=== PATIENT | male | born 1955 | race Caucasian/White ===

== ENCOUNTER 2016-06-05 18:05 | Emergency (ER) | payer OTHER ==
[~2016-06-05] VITALS: Ht 198.1 cm; Wt 144.8 kg
[~2016-06-05 18:05] MED LIST: ALBUAER19 INH; CETI10TA84 PO; DILT-115 PO; FLEC50TA20 PO; FLNIN NAE; GLUCTAB18 PO; LOSA100T2 PO; MISCCAP80 PO; TURM1CAP4 PO; WARF-246 PO
[2016-06-05 18:43] VITALS: TEMP 36.8; Ht 198.1 cm; Wt 144.8 kg
[2016-06-05] MEDS ORDERED: SODIUM CHLORIDE 0.9% 1000ML 1,000 ML IV STA (20:50)
[2016-06-05 21:07] VITALS: O2SAT 98
--- NOTE | 2016-06-05 21:17 | DIAGNOSTIC IMAGING REPORT ---
CHEST ONE VIEW PORTABLE CLINICAL HISTORY: Weakness. Atrial fibrillation. COMPARISON STUDY: Chest radiograph November 06, 2015. FINDINGS: Mild to moderate cardiomegaly is unchanged. There is no evidence for pulmonary edema. No consolidation is identified. There is no pneumothorax or pleural effusion. IMPRESSION: No acute cardiopulmonary findings. Electronically signed by: Marito Ibanez M.D. 06/05/2016 9:16 PM Dictated Date/Time: 06/05/2016 9:12 PM
[2016-06-05 21:20] LABS: BASO % 0.3 %; BASO ABS # 0.02 K/uL (0-0.2); COMPLETE YES; EOS % 1.7 %; HEMATOCRIT 48.7 % (42-52); IG% 0.1 %; LYMPH % 35.4 %; LYMPH ABS # 2.72 K/uL (1.2-3.4); MEAN CELL VOLUME 93.1 fL (80-100); MEAN CORPUSCULAR HEMOGLOBIN 33.7 pg (25-34); MEAN CORPUSCULAR HGB CONC 36.1 g/dl (32-36); MEAN PLATELET VOLUME 10.1 fL (7.4-10.4); MONO % 11.3 %; NEUT % 51.2 %; PLATELET COUNT 176 K/uL (130-400); RED BLOOD COUNT 5.23 M/uL (4.7-6.1); WHITE BLOOD COUNT 7.69 K/uL (4.8-10.8)
[2016-06-05 21:25] LABS: URINE APPEARANCE CLEAR (CLEAR); URINE BILIRUBIN NEG (NEG); URINE COLOR YELLOW; URINE NITRITE NEG (NEG); URINE PH 7.5 (4.5-7.5); URINE SPECIFIC GRAVITY 1.018 (1.000-1.030); UROBILINOGEN NEG (NEG)
[2016-06-05 21:28] LABS: MANUAL MICROSCOPIC REQUIRED? NO; REVIEW REQ? NO
[2016-06-05 21:29] LABS: INR 2.5 (0.9-1.1); PARTIAL THROMBOPLASTIN RATIO 1.4
[2016-06-05] MEDS ORDERED: VNTHFA/IN INH (21:35)
[2016-06-05] MEDS ORDERED: FLNIN NAE (21:35)
[2016-06-05] MEDS ORDERED: COLL1CAP PO (21:35)
[2016-06-05] MEDS ORDERED: MAGN1TAB41 PO (21:35)
[2016-06-05] MEDS ORDERED: XPNINS INH (21:35)
[2016-06-05] MEDS ORDERED: DILT240C74 PO (21:35)
[2016-06-05 21:45] LABS: ALT/SGPT 37 U/L (12-78); BLOOD UREA NITROGEN 15 mg/dl (7-18); BUN/CREATININE RATIO 16.3 (10-20); CALCIUM 9.1 mg/dl (8.5-10.1); CARBON DIOXIDE 27 mmol/L (21-32); CHLORIDE 101 mmol/L (98-107); CREATININE 0.93 mg/dl (0.60-1.40); GLUCOSE 100 mg/dl (70-99); MAGNESIUM 2.3 mg/dl (1.8-2.4); SODIUM 137 mmol/L (136-145)
[2016-06-05 21:55] LABS: ALKALINE PHOSPHATASE 87 U/L (45-117); AST/SGOT 21 U/L (15-37); CKMB/CK RATIO 1.2 (0-3.0)
[2016-06-05] MEDS ORDERED: FLECAINIDE ACETATE 100 MG TAB PO STA ×2 (22:27→23:41)
[2016-06-05] MEDS ORDERED: DILTIAZEM HCL 240 MG CAPCR PO STA (22:27)
[2016-06-05] MEDS ORDERED: WARFARIN SOD 5 MG TAB PO ONE (22:30)
--- NOTE | 2016-06-06 00:04 | EMERGENCY ROOM VISIT NOTE ---
History Report prepared by Joseph: Ekta Long Under the Supervision of: Dr. Lazaro Mccloud M.D. First contact with patient: 20:49 Chief Complaint: CARDIAC ASSESSMENT Stated Complaint: A FIB Nursing Triage Summary: Pt c/o "dizziness and my watch that tells my my heart rate was acting wierd." Hx Afib, 2 ablations, hx shocks, last visit November. History of Present Illness The patient is a 60 year old male who presents to the Emergency Room with complaints of intermittent lightheadedness that the patient noticed 5-6 hours ago, around [id number]. The patient states that whenever he gets lightheaded it is often secondary to atrial fibrillation. Pt denies LOC, headache, fevers, chills, diaphoresis, visual changes, neck pain, chest pain, breathing difficulties, nausea, vomiting, abdominal pain, back pain, melena, hematochezia , urinary symptoms, numbness, weakness, lymphadenopathy, rash, or other complaints. He has a long history of atrial fibrillation with multiple cardioversions and two ablations. The patient states that his most recent cardioversion was done last November by Dr. Avitia - Cardiology. The patient's states that the patient has been cardioverted in the ED and in the lab. The patient is on flecainide, losartan, diltiazem, and warfarin. He states that he started the flecainide about 1.5 years ago. The patient drinks wine regularly , but he states that alcohol does not impact his atrial fibrillation because he went about 1.5 years without drinking any alcohol and it did not improve the occurrence of his atrial fibrillation. Source of History: patient, spouse/significant other () Onset: 5-6 hours ago, around [id number] Position: head Quality: other (lightheadedness) Timing: intermittent Note: atrial fibrillation Review of Systems See HPI for pertinent positives and negatives. A total of ten systems were reviewed and were otherwise negative. Past Medical & Surgical Medical Problems: (1) Allergic rhinitis (2) Asthma, Unspecified (3) Atrial fibrillation (4) Atrial fibrillation with rapid ventricular response (5) Benign hypertension (6) Benign neoplasm of colon (7) Chronic allergic conjunctivitis (8) Congestive Heart Failure Nos (9) History of sustained ventricular tachycardia (10) Hyperlipidemia Nec/Nos (11) Hypertension Nos (12) Intermittent asthma (13) Mitral Valve Disorder (14) Osteoarthritis Family History Heart disease Social History Smoking Status: Never Smoker Alcohol Use: occasionally Drug Use: none Marital Status: Housing Status: lives with family Occupation Status: employed Current/Historical Medications Scheduled Cetirizine (Zyrtec), 10 MG PO HS Zeiejiui-Zkeczvngmpo-Zkiiolmhu (Hyaluronic Acid), 2 CAP PO DAILY Diltiazem Hcl Extended Release (Diltiazem Hcl Er), 240 MG PO DAILY Flecainide (Tambocor), 75 MG PO Q12 Fluticasone Propionate (Fluticasone Propionate), 2 SPRAYS JAMAL DAILY Losartan Potassium & Hydrochlo (Hyzaar), 1 TAB PO DAILY Magnesium Oxide (Magnesium), 400 MG PO DAILY Probiotic Product (Probiotic), 1 CAP PO DAILY Turmeric (Curcuma Longa) (Turmeric), 1 CAP PO DAILY Warfarin Sodium (Warfarin Sodium), 2 TAB PO 2XWK Warfarin Sodium (Warfarin Sodium), 1 TAB PO 6XWK Scheduled PRN Albuterol Hfa (Ventolin Hfa), 2 PUFFS INH QID PRN for SOB/Wheezing Levalbuterol (Levalbuterol HCl), 0.63 MG INH QID PRN for Shortness of Breath Allergies Coded Allergies: PADMINI Inhibitors (Verified Allergy, Unknown, "CAN'T REMEMBER", 06/05/16) Allopurinol (Verified Allergy, Unknown, "CAN'T REMEMBER", 06/05/16) Physical Exam Vital Signs Date Time Temp Pulse Resp B/P Pulse Ox O2 Delivery O2 Flow Rate FiO2 06/05/16 23:55 69 06/05/16 22:49 94 16 150/95 97 Room Air 06/05/16 21:50 98 06/05/16 21:07 98 Room Air 06/05/16 21:07 98 Room Air 06/05/16 20:51 99 174/107 96 Room Air 06/05/16 18:44 97 Room Air 06/05/16 18:43 36.8 101 19 178/114 98 Room Air Physical Exam GENERAL: Awake, alert, well-appearing, in no distress HENT: Normocephalic, atraumatic. Oropharynx unremarkable. EYES: Normal conjunctiva. Sclera non-icteric. NECK: Supple. No nuchal rigidity. FROM. No JVD. RESPIRATORY: Clear to auscultation. CARDIAC: Borderline tachycardic rate, irregular rhythm. Extremities warm and well perfused. Pulses equal. ABDOMEN: Soft, non-distended. No tenderness to palpation. No rebound or guarding. No masses. RECTAL: Deferred. MUSCULOSKELETAL: Chest examination reveals no tenderness. The back is symmetrical on inspection without obvious abnormality. There is no CVA tenderness to palpation. No joint edema. LOWER EXTREMITIES: Calves are equal size bilaterally and non-tender. 1+ edema. Chronic venous discoloration. NEURO: Normal sensorium. No sensory or motor deficits noted. SKIN: No rash or jaundice noted. Medical Decision & Procedures ER Provider Diagnostic Interpretation: X-ray: Per my interpretation, radiologist review. CHEST ONE VIEW PORTABLE IMPRESSION: No acute cardiopulmonary findings. Electronically signed by: Marito Ibanez M.D. 06/05/2016 9:16 PM Dictated Date/Time: 06/05/2016 9:12 PM Laboratory Results 06/05/16 20:55 Red Blood Count 5.23, Mean Corpuscular Volume 93.1, Mean Corpuscular Hemoglobin 33.7, Mean Corpuscular Hemoglobin Concent 36.1, Mean Platelet Volume 10.1, Neutrophils (%) (Auto) 51.2, Lymphocytes (%) (Auto) 35.4, Monocytes (%) (Auto) 11.3, Eosinophils (%) (Auto) 1.7, Basophils (%) (Auto) 0.3, Neutrophils # (Auto ) 3.94, Lymphocytes # (Auto) 2.72, Monocytes # (Auto) 0.87, Eosinophils # (Auto ) 0.13, Basophils # (Auto) 0.02 06/05/16 20:55 Test 06/05/16 20:50 06/05/16 20:55 Urine Color YELLOW Urine Appearance CLEAR (CLEAR) Urine pH 7.5 (4.5-7.5) Urine Specific [place] 1.018 (1.000-1.030) Urine Protein NEG (NEG) Urine Glucose (UA) NEG (NEG) Urine Ketones NEG (NEG) Urine Occult Blood NEG (NEG) Urine Nitrite NEG (NEG) Urine Bilirubin NEG (NEG) Urine Urobilinogen NEG (NEG) Urine Leukocyte Esterase NEG (NEG) White Blood Count 7.69 K/uL (4.8-10.8) Red Blood Count 5.23 M/uL (4.7-6.1) Hemoglobin 17.6 g/dL (14.0-18.0) Hematocrit 48.7 % (42-52) Mean Corpuscular Volume 93.1 fL (80-100) Mean Corpuscular Hemoglobin 33.7 pg (25-34) Mean Corpuscular Hemoglobin Concent 36.1 g/dl (32-36) Platelet Count 176 K/uL (130-400) Mean Platelet Volume 10.1 fL (7.4-10.4) Neutrophils (%) (Auto) 51.2 % Lymphocytes (%) (Auto) 35.4 % Monocytes (%) (Auto) 11.3 % Eosinophils (%) (Auto) 1.7 % Basophils (%) (Auto) 0.3 % Neutrophils # (Auto) 3.94 K/uL (1.4-6.5) Lymphocytes # (Auto) 2.72 K/uL (1.2-3.4) Monocytes # (Auto) 0.87 K/uL (0.11-0.59) Eosinophils # (Auto) 0.13 K/uL (0-0.5) Basophils # (Auto) 0.02 K/uL (0-0.2) RDW Standard Deviation 46.0 fL (36.4-46.3) RDW Coefficient of Variation 13.4 % (11.5-14.5) Immature Granulocyte % (Auto) 0.1 % Immature Granulocyte # (Auto) 0.01 K/uL (0.00-0.02) Prothrombin Time 28.0 SECONDS (9.0-12.0) Prothromb Time International Ratio 2.5 (0.9-1.1) Activated Partial Thromboplast Time 36.9 SECONDS (21.0-31.0) Partial Thromboplastin Ratio 1.4 Anion Gap 9.0 mmol/L (3-11) Est Creatinine Clear Calc Drug Dose 133.0 ml/min Estimated GFR () 102.3 Estimated GFR (Non- 88.3 BUN/Creatinine Ratio 16.3 (10-20) Calcium Level 9.1 mg/dl (8.5-10.1) Magnesium Level 2.3 mg/dl (1.8-2.4) Total Bilirubin 0.6 mg/dl (0.2-1) Direct Bilirubin 0.2 mg/dl (0-0.2) Aspartate Amino Transf (AST/SGOT) 21 U/L (15-37) Alanine Aminotransferase (ALT/SGPT) 37 U/L (12-78) Alkaline Phosphatase 87 U/L (45-117) Total Creatine Kinase 124 U/L (39-308) Creatine Kinase MB 1.5 ng/ml (0.5-3.6) Creatine Kinase MB Ratio 1.2 (0-3.0) Troponin I < 0.015 ng/ml (0-0.045) Total Protein 8.3 gm/dl (6.4-8.2) Albumin 4.0 gm/dl (3.4-5.0) Thyroid Stimulating Hormone (TSH) 3.290 uIu/ml (0.300-4.500) Laboratory results reviewed by me Medications Administered Medications (Trade) Dose Ordered Sig/Shine Route Start Time Stop Time Status Last Admin Dose Admin Sodium Chloride (Nss 1000ml) 1,000 ml @ 125 mls/hr Q8H STAT IV 06/05/16 20:50 06/06/16 04:49 06/05/16 20:57 125 MLS/HR Diltiazem HCl (Cardizem Cd Cap) 240 mg NOW STAT PO 06/05/16 22:27 06/05/16 22:29 DC 06/05/16 22:45 240 MG Warfarin Sodium (Coumadin Tab) 5 mg NOW ONCE PO 06/05/16 22:30 06/05/16 22:31 DC 06/05/16 22:44 5 MG Flecainide Acetate (Tambocor Tab) 75 mg NOW STAT PO 06/05/16 22:27 06/05/16 22:29 DC 06/05/16 22:45 75 MG ECG Indication: palpitations Rate (beats per minute): 102 Rhythm: atrial flutter (with variable block) Findings: no acute ischemic change, no ectopy ED Course 2049: Ordered Sodium Chloride 1000 ml @ 125 mls/hr IV 2055: The patient was evaluated in room C12. A complete history and physical exam was performed. 2226: Ordered Flecainide Acetate 75 mg PO, Diltiazem HCl 240 mg PO 2228: I reassessed and updated the patient. He is resting comfortably. 2229: Ordered Warfarin Sodium 5 mg PO 5: Discussed the case with Dr. Ariza of cardiology. He recommended 150 mg of flecainide and monitoring for 1 hour are to discharge. 2342: The patient was reassessed. When I was discussing the plan with him he spontaneously converted into sinus rhythm. Repeat ECG was performed. This showed a normal sinus rhythm at 68 with no ischemia or ectopy. 2355: Return instructions were outlined and the patient was discharged in stable condition. Medical Decision Triage Nursing notes reviewed. The patient's presentation and history were concerning for palpitations. Etiologies such as ectopy, cardiac dysrhythmia, electrolyte abnormality, thyroid dysfunction, pulmonary embolism, infection, gastrointestinal, as well as others were entertained. The patient was evaluated. ECG revealed the patient was in atrial flutter. No ischemia was noted. Clinically he was doing well. He was relatively well controlled as far as his rate goes. He was mildly hypertensive. The patient had unremarkable CBC, chemistry panel, cardiac markers, magnesium, and potassium. He was given his evening warfarin, flecainide, and Cardizem. The patient was therapeutic with his INR. He was monitored. He did very well. Consultation was made with cardiology. It was recommended for an additional dose of flecainide. When this was ordered and discussed with the patient he spontaneously converted. The flecainide additional dose was canceled. The patient had a repeat ECG which showed sinus rhythm. He was a symptomatically and felt great. He desired discharge and will follow-up tomorrow with the office. By the evaluation outlined above other emergent etiologies such as those listed in the differential, as well as others, were deemed relatively unlikely. The patient and were informed about the findings as listed above. All questions were answered and they were pleased with the treatment. Return instructions were outlined and the patient was discharged in stable condition. The patient was referred to [facility] cardiology for follow-up tomorrow for a recheck of the current condition. The chart was completed utilizing [employer] voice recognition software. Grammatical errors, random word insertions, pronoun errors, and incomplete sentences are an occasional consequence of this system due to software limitations, ambient noise, and hardware issues. Any formal questions or concerns about the content, text, or information contained within the body of this dictation should be directly addressed to the physician for clarification. Consults Time Called: 2229 Consulting Physician: Dr. Ariza Returned Call: [phone] Recommended additional flecainide and monitoring with outpatient follow-up. Impression Primary Impression: Paroxysmal atrial flutter Scribe Attestation The scribe's documentation has been prepared under my direction and personally reviewed by me in its entirety. I confirm that the note above accurately reflects all work, treatment, procedures, and medical decision making performed by me. Departure Information Referrals Jarrett Doan D.O. (PCP) Patient Instructions My [facility]
[2016-06-06 00:16] VITALS: BP 148/89; PULSE 70; O2SAT 98
[2016-07-19] MEDS ORDERED: FLEC100T21 PO (08:08)
[2016-08-19] MEDS ORDERED: RXC5 PO (15:03)
[2016-08-19] MEDS ORDERED: MORP-157 PO (15:03)
[2016-08-19] MEDS ORDERED: ACET-24 PO (15:03)
[2016-10-17] MEDS ORDERED: WARF7.5T4 PO (10:58)
[2016-10-27] MEDS ORDERED: MORP-157 PO (21:34)
[2016-10-27] MEDS ORDERED: RXC5 PO (21:34)
[2016-10-27] MEDS ORDERED: ACET-24 PO (21:34)
== END 2016-06-06 00:16 | disposition home or self-care (01) ==
LOC: C.EDB 18:07 → C.EDC 06-06 00:16
DX: I48.92 Unspecified atrial flutter (principal); J45.909 Unspecified asthma, uncomplicated; I10 Essential (primary) hypertension; D12.6 Benign neoplasm of colon, unspecified; I50.9 Heart failure, unspecified; E78.5 Hyperlipidemia, unspecified; M19.90 Unspecified osteoarthritis, unspecified site; Z82.49 Family history of ischemic heart disease and other diseases of the circulatory system; Z79.01 Long term (current) use of anticoagulants; Z51.81 Encounter for therapeutic drug level monitoring

== ENCOUNTER 2016-08-18 06:32 | Inpatient (IN) | payer OTHER ==
[2016-07-19 08:09] VITALS: BMI 37.0
--- NOTE | 2016-07-19 09:01 | PAT Medication Instructions ---
Service Date July 19, 2016. Current Home Medication List Albuterol Hfa (Ventolin Hfa), 2 PUFFS INH QID PRN for SOB/Wheezing Cetirizine (Zyrtec), 10 MG PO HS Dwviozld-Bmjjgocbaca-Cpjnoplka (Hyaluronic Acid), 1 CAP PO BID Diltiazem Hcl Extended Release (Diltiazem Hcl Er), 240 MG PO QAM Flecainide (Tambocor), 100 MG PO BID Fluticasone Propionate (Fluticasone Propionate), 2 SPRAYS JAMAL BID Levalbuterol (Levalbuterol HCl), 0.63 MG INH QID PRN for Shortness of Breath Losartan Potassium & Hydrochlo (Hyzaar), 1 TAB PO QAM Magnesium Oxide (Magnesium), 400 MG PO QPM Probiotic Product (Probiotic), 2 CAP PO DAILY Turmeric (Curcuma Longa) (Turmeric), 1 CAP PO QAM Warfarin Sodium (Warfarin Sodium), 2 TAB PO 2XWK Warfarin Sodium (Warfarin Sodium), 1 TAB PO 6XWK Medication Instructions For Your Scheduled Surgery Warfarin Sodium (Warfarin Sodium) (please check with surgeon's office for instructions- make sure they check with slag dumper before stopping) - Hold the following medications 2 weeks prior to surgery: Turmeric (Curcuma Longa) (Turmeric), 1 CAP PO QAM Qzmmxhnu-Ewfrhkywnsj-Crwvlmooo (Hyaluronic Acid), 1 CAP PO BID - Hold the following medications the morning of surgery: Probiotic Product (Probiotic), 2 CAP PO DAILY Losartan Potassium & Hydrochlo (Hyzaar), 1 TAB PO QAM - Take the following medications the morning of surgery with a sip of water: Flecainide (Tambocor), 100 MG PO BID Fluticasone Propionate (Fluticasone Propionate), 2 SPRAYS JAMAL BID Diltiazem Hcl Extended Release (Diltiazem Hcl Er), 240 MG PO QAM Albuterol Hfa , 2 PUFFS INH QID PRN for SOB/Wheezing (bring with you to hospital on day of surgery) - Take the following medications as scheduled the night before surgery: Magnesium Oxide (Magnesium), 400 MG PO QPM Flecainide (Tambocor), 100 MG PO BID Fluticasone Propionate (Fluticasone Propionate), 2 SPRAYS JAMAL BID Cetirizine (Zyrtec), 10 MG PO HS Albuterol Hfa , 2 PUFFS INH QID PRN for SOB/Wheezing If you have any questions please call us at [phone] or [phone] ( Su) or [phone]
[2016-07-19 09:45] LABS: BASO % 0.2 %; BASO ABS # 0.01 K/uL (0-0.2); COMPLETE YES; EOS % 2.7 %; HEMATOCRIT 44.5 % (42-52); LYMPH % 36.9 %; LYMPH ABS # 1.48 K/uL (1.2-3.4); MEAN CELL VOLUME 95.3 fL (80-100); MEAN CORPUSCULAR HEMOGLOBIN 33.2 pg (25-34); MEAN CORPUSCULAR HGB CONC 34.8 g/dl (32-36); MEAN PLATELET VOLUME 9.3 fL (7.4-10.4); NEUT % 48.2 %; PLATELET COUNT 176 K/uL (130-400); RED BLOOD COUNT 4.67 M/uL (4.7-6.1); WHITE BLOOD COUNT 4.01 K/uL (4.8-10.8)
[2016-07-19 09:57] LABS: INR 2.1 (0.9-1.1); PARTIAL THROMBOPLASTIN RATIO 1.3; PROTHROMBIN TIME (PATIENT) 23.6 SECONDS (9.0-12.0)
--- NOTE | 2016-07-19 09:57 | DIAGNOSTIC IMAGING REPORT ---
CHEST PREADMISSION(PA/LAT) CLINICAL HISTORY: Preoperative chest COMPARISON STUDY: 06/05/2016 FINDINGS: The cardiac and mediastinal contours are normal. There is no evidence of focal pulmonary consolidation. There is no evidence of failure. No pleural effusions are visualized.[ IMPRESSION: No active disease in the chest. Electronically signed by: Delfin Duval M.D. 07/19/2016 9:55 AM Dictated Date/Time: 07/19/2016 9:54 AM
[2016-07-19 10:53] LABS: BUN/CREATININE RATIO 12.9 (10-20); CALCIUM 8.9 mg/dl (8.5-10.1); CREATININE 0.84 mg/dl (0.60-1.40); POTASSIUM 4.7 mmol/L (3.5-5.1)
--- NOTE | 2016-08-10 23:06 | HISTORY & PHYSICAL EXAMINATION ---
DATE OF ADMISSION: 08/18/2016 CHIEF COMPLAINT: Bilateral knee pain, right side greater than left. HISTORY OF PRESENT ILLNESS: A 60-year-old gentleman who has a history of intermittent atrial fibrillation, who presents for surgical treatment of his right knee primarily. The patient had several years with injection to his knees. These have become less successful over time. Right is a little bit worse than the left. All in all, he has had about 10 years of knee pain. He would like to have his right knee replaced. He is having difficulty working. He works as a self-employed HVAC, heating, ventilation and dairy husbandry worker. The more he walks, the more it hurts. He limps more as the day goes on. PAST MEDICAL HISTORY: Significant for: 1. Atrial fibrillation, status post ablation x2 but still on Coumadin. 2. Hypertension. 3. Asthma. 4. Sleep apnea, on CPAP machine. 5. Obesity with a BMI of 37. PREVIOUS SURGERIES: Include cardiac ablation x2, one in 2007 and one in 2011. ALLERGIES: ALLOPURINOL AND PADMINI INHIBITORS. CURRENT MEDICINES: Include: 1. Coumadin 5 mg every day except for Sunday when he takes 10. 2. Flecainide once a day. 3. Losartan. 4. Zyrtec. 5. Fluticasone nasal spray. 6. Osteo Bi-Flex. 7. Centrum Silver. SOCIAL HISTORY: Significant for a 60-year-old male. He lives in [place]. He works heating, ventilating, and air conditioning. He is self-employed. One drink per day. FAMILY HISTORY: Noncontributory. REVIEW OF SYSTEMS: Significant for this intermittent atrial fibrillation. Denies any chest pain, no shortness of breath. No history of DVT or PE. He is on Cou[facility]in [facility]. PHYSICAL EXAMINATION: GENERAL: Reveals a healthy, pleasant middle-aged male. He looks to be in good health. HEENT: Benign. NECK: Supple, no lymphadenopathy. LUNGS: Clear to auscultation. HEART: Regular rate and rhythm. ABDOMEN: Soft, nontender, nondistended. EXTREMITIES: Grossly neurovascularly intact except as follows: Examination of both knees reveals the patient ambulates with a waddling gait. He has got varus alignment to both knees. He has got some mild stasis changes distally. Mild peripheral edema distally. Range of motion of the right is 5-110, left is 5-125. No instability on either side. X-RAYS: X-rays of both knees reveal advanced bilateral knee DJD. The right side is a bit worse than the left. He has complete loss of the medial joint space. He has got osteophytes of mediofemoral condyle and medial tibial plateau. ASSESSMENT: A 60-year-old male with history of intermittent atrial fibrillation with advanced bilateral knee pain and degenerative joint disease, right side more symptomatic than the left. He has failed conservative treatment and would like to proceed with right knee replacement. PLAN: We are going to take him to the operating room and do right total knee replacement. The risks and benefits of this procedure were explained to the patient including but not limited to DVT, PE, , infection, neurological injury, vascular injury, bleeding problem, pain, limited range of motion, stiffness, failure to relieve symptoms, incomplete relief of symptoms, need for further surgery in the future, fracture, leg length inequality, nerve palsy, etc. The patient understands and desires to proceed. Informed consent was obtained. He knows to hold his Coumadin 5 days preop. He does not need a Lovenox bridge as per motion study analyst. We will check a stat PT and INR on the morning of surgery. He will bring his CPAP machine to the hospital with him. Likely have a [facility] motion study analyst follow him in the hospital due to his cardiac history. As far as discharge plans, he is planning to be discharged to home using [facility] home health program. I will see him back 2 weeks postop. NAVI
[2016-08-18] VITALS (8 sets, daily range): BP systolic 121–158; BP diastolic 73–94; PULSE 55–72; TEMP 36.4–36.9; O2SAT 93–98; Ht 198.1 cm; Wt 143.9 kg
[~2016-08-18] VITALS: Ht 198.1 cm; Wt 143.9 kg
[~2016-08-18 06:32] MED LIST changes: +ACETAMINOPHEN 500 MG TAB PO SCH; -ALBUAER19 INH; +BUPIVACAINE LIPOSOME 266 MG, BUPIVACAINE/EPINEPHRINE INJ 50 ML, SODIUM CHLORIDE 0.9% PF... INFIL SCH; +CEFAZOLIN 3000 MG/65 ML D5W 65 ML IV SCH; +COLL1CAP PO; -DILT-115 PO; +DILT240C74 PO; +FAMOTIDINE 20 MG TAB PO SCH; +FLEC100T21 PO; -FLEC50TA20 PO; +GABAPENTIN 300 MG CAP PO SCH; -GLUCTAB18 PO; +LACTATED RINGER'S 1000ML 1,000 ML IV SCH; +LACTATED RINGER'S 1000ML 500 ML IV ONE; +LACTATED RINGER'S 1000ML IV SCH; +MAGN1TAB41 PO; +METOCLOPRAMIDE HCL 10 MG TAB PO SCH; +SCOPOLAMINE 1.5 MG TDSY TD SCH; +TRANEXAMIC ACID INJ 1,000 MG in SODIUM CHLORIDE 0.9% 100ML 100 ML IV SCH; +VNTHFA/IN INH; +XPNINS INH
--- NOTE | 2016-08-18 06:53 | History & Physical Bridge Note ---
H&P Re-Evaluation Bridge Note: I have examined the patient, reviewed the History & Physical and in the interval since the performance of the History & Physical I have noted the following changes of clinical significance: No changes noted
[2016-08-18 07:27] LABS: INR 1.1 (0.9-1.1); PARTIAL THROMBOPLASTIN RATIO 1.1
[2016-08-18] MEDS ORDERED: LIDOCAINE HCL 2% 2 ML VIAL (20MG/ML) ONE (07:36)
[2016-08-18] MEDS ORDERED: FENTANYL CITRATE INJ 50 MCG/1 ML 2 ML VIAL ONE (07:36)
[2016-08-18] MEDS ORDERED: PROPOFOL IV EMULSION 10 MG/ML 20 ML VIAL IV ONE ×2 (07:36→10:26)
[2016-08-18] MEDS ORDERED: MIDAZOLAM HCL 1 MG/ML 2ML VIAL ONE ×3 (07:36→09:44)
[2016-08-18] MEDS ORDERED: BUPIVACAINE/EPINEPHRINE 0.25% 1:200,000 30 ML VIAL ONE ×2 (08:12→08:55)
[2016-08-18] MEDS ORDERED: BUPIVACAINE 0.5 % 5 MG/1 ML PF 10ML VIAL ONE (08:13)
[2016-08-18] MEDS ORDERED: DEXAMETHASONE SOD INJ 4 MG/ML VIAL ONE (08:13)
[2016-08-18] MEDS ORDERED: ONDANSETRON INJ 2 MG/ML 2 ML VIAL IV PRN (08:15)
[2016-08-18] MEDS ORDERED: ATROPINE SULFATE 0.1 MG/ML 5ML SYR IV PRN (08:15)
[2016-08-18] MEDS ORDERED: EpHEDrine SULFATE INJ 50 MG/ML AMP IV PRN (08:15)
[2016-08-18] MEDS ORDERED: FENTANYL CITRATE INJ 50 MCG/1 ML 2 ML VIAL IV PRN (08:15)
[2016-08-18] MEDS ORDERED: BUPIVACAINE LIPOSOME 1/3% 266 MG/20 ML VIAL INFIL ONE (08:55)
[2016-08-18] MEDS ORDERED: BACITRACIN 50000 UNIT VIAL ONE (08:55)
[2016-08-18] MEDS ORDERED: SODIUM CHLORIDE 0.9% PF 50 ML VIAL ONE (08:55)
--- NOTE | 2016-08-18 11:04 | [facility] Post Operative Brief Note ---
Immediate Operative Summary Operative Date Aug 18, 2016. Pre-Operative Diagnosis Advanced right knee degenerative joint disease Post-Operative Diagnosis Same as pre-operative Procedure(s) Performed Right total knee arthroplasty Surgeon Dr. Jaime Segovia MD Lacquer Spray Booth Operator Surgeon(s) Pedro Pablo Chery PA-C Estimated Blood Loss 50 ml Findings Right Knee DJD Fluids (cc crystalloids) 1700 cc Specimens A.Right knee bone and tissue Drains None Anesthesia Spinal Complication(s) None Disposition Recovery Room / PACU
[2016-08-18] MEDS ORDERED: ALUMINUM/MAGNESIUM/SIMETH (MAALOX MAX) 30 ML UDC PO PRN (11:15)
[2016-08-18] MEDS ORDERED: MoRPHine SULFATE 2 MG/ML CARP IV PRN (11:15)
[2016-08-18] MEDS ORDERED: LEVALBUTEROL 0.63MG/3 ML NEB INH PRN (11:15)
[2016-08-18] MEDS ORDERED: SILVER SULFADIAZINE 1% CR 50 GM JAR EXT PRN (11:15)
[2016-08-18] MEDS ORDERED: ZOLPIDEM TARTRATE 5 MG TAB PO PRN (11:15)
[2016-08-18] MEDS ORDERED: BISACODYL 10 MG SUPP PR PRN (11:15)
[2016-08-18] MEDS ORDERED: PROBIOTIC PRODUCT PO SCH (11:15)
[2016-08-18] MEDS ORDERED: METOCLOPRAMIDE HCL INJ 5 MG/ML 2 ML VIAL IV PRN (11:15)
[2016-08-18] MEDS ORDERED: MAGNESIUM HYDROXIDE SUSP 30 ML UDC PO PRN (11:15)
[2016-08-18] MEDS ORDERED: DiphenhydrAMINE HCL 50 MG/ML VIAL IV PRN (11:15)
[2016-08-18] MEDS ORDERED: ALBUTEROL HFA 8 GM INHALER INH PRN (11:15)
[2016-08-18] MEDS ORDERED: TAMSULOSIN HCL 0.4 MG CAP PO PRN (11:15)
--- NOTE | 2016-08-18 11:26 | DIAGNOSTIC IMAGING REPORT ---
RIGHT KNEE 1 OR 2 VIEWS ROUTINE CLINICAL HISTORY: Postoperative evaluation. COMPARISON: Knee radiographs May 22, 2016. FINDINGS: Alignment of the total right knee arthroplasty is anatomic. There is no fracture or unexpected radiopaque foreign body. Skin ilan are present. IMPRESSION: Expected findings following total right knee arthroplasty. Electronically signed by: Marito Ibanez M.D. 08/18/2016 11:25 AM Dictated Date/Time: 08/18/2016 11:23 AM
--- NOTE | 2016-08-18 12:12 | Anesthesiology Progress Note ---
Anesthesia Post Op Note Date & Time Aug 18, 2016 at 12:12 Vital Signs Pain Intensity: 0 Vital Signs Past 12 Hours Date Time Temp Pulse Resp B/P (MAP) Pulse Ox O2 Delivery O2 Flow Rate FiO2 08/18/16 11:55 36.5 63 16 127/76 97 Nasal Cannula 2 08/18/16 11:45 63 17 128/81 96 Nasal Cannula 2 08/18/16 11:35 64 18 128/75 96 Nasal Cannula 2 08/18/16 11:25 68 14 121/72 97 Nasal Cannula 2 08/18/16 11:15 75 18 123/65 97 Nasal Cannula 2 08/18/16 11:09 36.0 74 16 121/62 96 Nasal Cannula 2 08/18/16 07:06 36.9 72 20 147/88 96 Room Air Notes Mental Status: alert / awake / arousable, participated in evaluation Pt Amnestic to Procedure: Yes Nausea / Vomiting: adequately controlled Pain: adequately controlled Airway Patency, RR, SpO2: stable & adequate BP & HR: stable & adequate Hydration State: stable & adequate Neuraxial Anesthesia: was administered, sensory block is resolving Anesthetic Complications: no major complications apparent Spinal placement noted to be challenging. On initial palpation of low back, overt spinous processes were not felt but prominence was felt 2-3 cm left of midline. 1 attempt was made with no contact of bone by the needle. A decision was made to examine the back with ultrasound to determine an appropriate approach. On ultrasound imaging, the spine was found to actually be 2-3 to the RIGHT of midline with spinous processes lying at a depth of 6 cm. Unable to reach the subarachnoid space with a normal length 22G sprotte needle, we switched to a long 22G sprotte which was advanced midline in a flat plane to a depth of approximately 10cm before clear CSF was returned. Patient tolerated the procedure well, but it was noted that for future spinal attempts, preemptive spinal ultrasound may be helpful in placement if the walking dragline operator is comfortable with this technique.
[2016-08-18] MEDS: D5W AND 1/2NSS + 20MEQ KCL 1,000 ML IV SCH ×2 (13:48→19:54)
[2016-08-18] MEDS: OXYCODONE HCL IR 5 MG TAB (IMMEDIATE RELEASE) PO PRN (14:09)
--- NOTE | 2016-08-18 15:28 | CARDIOLOGY CONSULTATION ---
DATE OF CONSULTATION: 08/18/2016 DATE OF CONSULTATION: 08/18/2016. REFERRING PHYSICIAN: Dr. Segovia. INDICATIONS: Postop medical management status post knee replacement. HISTORY OF PRESENT ILLNESS: The patient is a 60-year-old male whose history is notable for: 1. Paroxysmal atrial fibrillation, currently controlled in sinus rhythm with combination of flecainide and diltiazem. 2. Hypertension. 3. Past history of tachycardia-induced cardiomyopathy 2007 with return to LV systolic function. Prior normal cardiac catheterization with normal coronaries in 2007. 4. Obstructive sleep apnea on CPAP supplementation. The patient presents today having undergone right total knee replacement seen in the postoperative setting. Surgery was well tolerated. He denies any current complaints. Denies chest pain or discomfort. He took flecainide this morning. Did not take losartan. Usually takes his diltiazem in the evening. Notes no chest pains. Notes no tachypalpitations. Notes no difficulty breathing. He is now awaking completely from anesthesia, answering questions appropriately. ALLERGIES: NOTED TO BE PADMINI INHIBITORS AND ALLOPURINOL. MEDICATIONS: Prior to hospitalization were Ventolin inhaler 2 puffs q.i.d., Zyrtec 10 mg at bedtime, hyaluronic acid one capsule b.i.d., diltiazem 200 mg p.o. q.p.m., Tambocor 100 mg b.i.d., levalbuterol nebulizer p.r.n., losartan/hydrochlorothiazide 100/25 mg q.a.m., Mag-Ox 400 mg p.o. q.p.m., warfarin 5 mg 6 days per week, 10 mg 2 days per week. PAST SURGICAL HISTORY: Notable for prior radiofrequency pulmonary artery vein isolation ablation December 2007, SVT ablation in June 2011. FAMILY HISTORY: Not notable specifically for cardiac disease. SOCIAL HISTORY: The patient works as a heating and air conditioning contractor. He is a nonsmoker, occasional alcohol user. PHYSICAL EXAMINATION: VITAL SIGNS: Heart rate 66, blood pressure is 152/88. HEAD, EYES, EARS, NOSE, AND THROAT: Normocephalic, atraumatic. Nares without discharge. Throat was clear. NECK: Supple without thyromegaly, lymphadenopathy, JVD or bruit. LUNGS: Clear to auscultation. CARDIOVASCULAR EXAMINATION: Regular. There is no audible murmur or rub. ABDOMEN: Soft, obese, nontender. EXTREMITIES: Revealed 1+ lower extremity edema. Right foot with right leg bandaged. NEUROLOGIC: The patient is answering questions appropriately. IMPRESSION: A 60-year-old male with history of paroxysmal atrial fibrillation, now seen postoperatively after right total knee replacement, clinically stable. PLAN: Will resume diltiazem on a p.m. dosing beginning with dose this evening. Resume the other usual meds in a.m. or as otherwise prescribed. Electrolytes will be ordered for a.m. with plans keeping potassium greater than 4 with ultimate goals to attempt to ribeiro off recurrence of atrial arrhythmias. Anticoagulation will be reinitiated with warfarin. Will follow patient in the hospital.
[2016-08-18] MEDS ORDERED: WARFARIN SOD 5 MG TAB PO ONE (16:00)
[2016-08-18] MEDS: KETOROLAC TROMETHAMINE 30 MG/ML VIAL IV. SCH ×2 (16:48→21:20)
[2016-08-18] MEDS: ACETAMINOPHEN 500 MG TAB PO SCH ×2 (16:50→23:28)
[2016-08-18] MEDS: FERROUS GLUCONATE 324 MG TAB PO SCH (17:44)
[2016-08-18] MEDS: CEFAZOLIN IV 3,000 MG in DEXTROSE 5% 50ML 50 ML IV SCH (19:54)
[2016-08-18] MEDS ORDERED: NON-FORMULARY MEDICATION (Magnesium Oxide (Magnesium) 400 MG) PO SCH (21:00)
[2016-08-18] MEDS: TAPENTADOL ER 50 MG TABCR PO SCH (21:18)
[2016-08-18] MEDS: FLECAINIDE ACETATE 100 MG TAB PO SCH (21:19)
[2016-08-18] MEDS: CETIRIZINE HCL 10 MG TAB PO SCH (21:19)
[2016-08-18] MEDS: FLUTICASONE PROPIONATE NA SPR 16 GM BTL NAE SCH (21:19)
[2016-08-18] MEDS: DOCUSATE SODIUM 100 MG CAP PO SCH (21:19)
[2016-08-18] MEDS: DILTIAZEM HCL 120 MG ER CAP PO SCH (21:21)
[2016-08-18] MEDS: SENNA 8.6 MG TAB PO SCH (21:21)
[2016-08-19] MEDS: D5W AND 1/2NSS + 20MEQ KCL 1,000 ML IV SCH ×2 (02:58→08:59)
[2016-08-19] MEDS: KETOROLAC TROMETHAMINE 30 MG/ML VIAL IV. SCH ×2 (02:59→09:49)
[2016-08-19 03:00] VITALS: BP 135/78; PULSE 56; TEMP 36.5; O2SAT 97
[2016-08-19] MEDS: CEFAZOLIN IV 3,000 MG in DEXTROSE 5% 50ML 50 ML IV SCH (03:02)
[2016-08-19 06:25] LABS: HEMATOCRIT 38.4 % (42-52); MEAN CORPUSCULAR HEMOGLOBIN 32.4 pg (25-34); MEAN CORPUSCULAR HGB CONC 34.1 g/dl (32-36); MEAN PLATELET VOLUME 9.9 fL (7.4-10.4); PLATELET COUNT 151 K/uL (130-400); RED BLOOD COUNT 4.04 M/uL (4.7-6.1); WHITE BLOOD COUNT 9.93 K/uL (4.8-10.8)
[2016-08-19 06:33] LABS: INR 1.1 (0.9-1.1); PROTHROMBIN TIME (PATIENT) 11.8 SECONDS (9.0-12.0)
[2016-08-19 07:06] LABS: BUN/CREATININE RATIO 16.9 (10-20); CALCIUM 7.8 mg/dl (8.5-10.1); CREATININE 0.85 mg/dl (0.60-1.40); POTASSIUM 4.4 mmol/L (3.5-5.1)
[2016-08-19] MEDS: ACETAMINOPHEN 500 MG TAB PO SCH ×3 (07:46→23:22)
[2016-08-19 07:52] VITALS: BP 134/73; PULSE 57; TEMP 36.5; O2SAT 97
--- NOTE | 2016-08-19 08:29 | PROGRESS NOTE ---
DATE: 08/19/2016 SUBJECTIVE: A 60-year-old gentleman postop day 1 from a right knee replacement. He is doing pretty well. Pain is controlled. No chest pain or shortness of breath. Not feeling dizzy or lightheaded. OBJECTIVE: VITAL SIGNS: Temperature 36.5. Vital signs stable. PHYSICAL EXAMINATION: GENERAL: Pleasant, middle-aged male. He is sitting up in bed, looks pretty comfortable. EXTREMITIES: Examination of the right leg reveals the leg to be well aligned. Dressing is clean, dry, and intact. He can dorsiflex and plantarflex his foot appropriately. He is neurologically intact. LABORATORY DATA: Hemoglobin 13.1. INR 1.1. Electrolytes are stable. ASSESSMENT: A 60-year-old gentleman postop day 1 from right knee replacement, doing pretty well. Pain is controlled. He is neurologically intact. PLAN: 1. DVT prophylaxis include thigh-high TEDs, SCDs, and Coumadin. He is currently being bolus with Coumadin. He got 10 mg yesterday. We will give him 10 mg today. 2. PT/OT. Weightbear as tolerated. Right total knee protocol. 3. Pain control, doing pretty well with current pain regimen. 4. Disposition: He is planning to be discharged to home with some home health once adequately recovered.
--- NOTE | 2016-08-19 08:48 | CARDIOLOGY PROGRESS NOTE ---
DATE: 08/19/2016 DATE: 08/19/2016. The patient seen and examined. Chart, medications, laboratory studies reviewed. SUBJECTIVE: The patient had a good night though has been up since early this morning. Notes no chest pain. Notes no tachypalpitations. Knee pain has been well controlled this morning. Denies orthopnea or worsening edema. Has been stretching exercises and out of bed without difficulty. OBJECTIVE: VITAL SIGNS: Heart rate is 57, blood pressure is 134/73. NECK: Thick. There is no jugular venous distention. LUNGS: Clear to auscultation. CARDIOVASCULAR EXAMINATION: Regular. There is no S3 gallop. ABDOMEN: Soft, nontender. EXTREMITIES: Without cyanosis or clubbing. Right knee is bandaged. There is good capillary refill distal. LABORATORY DATA: Sodium is 136, potassium is 4.4, chloride is 102, bicarbonate is 24, BUN is 14, creatinine 0.85, calcium level 7.8, hemoglobin 13.1. IMPRESSION: A 60-year-old male with history of paroxysmal atrial fibrillation continually controlled. Blood pressure and heart rate appear well controlled today. Did use oxygen and CPAP supplementation last night as appropriate. Continue all current medications. Will continue nocturnal dosing of diltiazem at least while in the hospital. All other medications to be maintained as previously ordered. Warfarin anticoagulation initiated. The patient to report any new symptoms or complaints. Electrolytes appear well.
[2016-08-19] MEDS: FERROUS GLUCONATE 324 MG TAB PO SCH ×3 (08:59→17:33)
[2016-08-19] MEDS: DOCUSATE SODIUM 100 MG CAP PO SCH ×2 (08:59→20:48)
[2016-08-19] MEDS: LOSARTAN/HCTZ 50-12.5 EA TAB PO SCH (08:59)
[2016-08-19] MEDS: FLECAINIDE ACETATE 100 MG TAB PO SCH ×2 (08:59→20:49)
[2016-08-19] MEDS: MULTIVITAMIN TAB PO SCH (08:59)
[2016-08-19] MEDS: PANTOprazole SOD 40 MG TAB PO SCH (08:59)
[2016-08-19] MEDS ORDERED: TURMERIC PO SCH (09:00)
[2016-08-19] MEDS ORDERED: DILTIAZEM HCL 120 MG ER CAP PO SCH (09:00)
[2016-08-19] MEDS: TAPENTADOL ER 50 MG TABCR PO SCH ×2 (09:00→20:49)
[2016-08-19] MEDS: FLUTICASONE PROPIONATE NA SPR 16 GM BTL NAE SCH ×2 (09:00→20:48)
[2016-08-19] MEDS: OXYCODONE HCL IR 5 MG TAB (IMMEDIATE RELEASE) PO PRN ×2 (09:05→17:34)
[2016-08-19 09:14] VITALS: O2SAT 97
--- NOTE | 2016-08-19 10:39 | OPERATIVE REPORT ---
DATE OF OPERATION: 08/18/2016 SURGEON: Jaime Segovia MD. RUBBERIZING MECHANIC: AMY Caceres. PREOPERATIVE DIAGNOSIS: Right knee degenerative joint disease. POSTOPERATIVE DIAGNOSIS: Same. PROCEDURE PERFORMED: Right cemented posterior stabilized total knee arthroplasty. COMPLICATIONS: None. ESTIMATED BLOOD LOSS: 50 mL FLUID REPLACEMENT: 1700 mL crystalloid fluid replacement. TOURNIQUET TIME: 61 minutes at 300 mmHg. ANESTHESIA: Spinal with adductor canal block. DRAINS: None. SPECIMENS: Right knee sent for pathology. OPERATIVE INDICATIONS: The patient is a 60-year-old gentleman, who has a long history of bilateral knee pain and discomfort. I have being treating him extensively for the past several years. And all in all, he has a 10 plus years' of knee pain. 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 He has failed conservative treatment and elected to proceed with right knee replacement. OPERATIVE FINDINGS: Operative findings revealed advanced right knee DJD. He had grade 4 changes in all 3 compartments, but most severe in the medial and patellofemoral compartments. Moderate size joint effusion. A varus deformity to his knee. OPERATIVE IMPLANTS: Operative implants consisted of: 1. A Biomet Vanguard size 75, right posterior stabilized femoral component. 2. A Biomet size 79 tibial tray. 3. A 10 mm posterior stabilized polyethylene insert. 4. A 37 x 10 all poly patella. OPERATIVE PROCEDURE: The patient was taken to the operating room, identified and placed on the operating table in supine position. All contact areas were appropriately padded. IV antibiotics were provided by the anesthesia team. A spinal anesthetic and adductor canal block had been provided in the holding area. Downey catheter was placed in sterile fashion. Right thigh tourniquet was then placed and the right lower extremity was then prepped and draped in the usual sterile fashion. The right leg was elevated and exsanguinated with Esmarch and tourniquet was placed at 300 mmHg. An anterior approach to the right knee was then performed through a longitudinal incision centered over the patella. Sharp dissection was carried out through the subcutaneous tissues down to the level of the extensor mechanism. A medial parapatellar arthrotomy incision was made. Some subperiosteal dissection was carried out medially. The fat pad was dissected from beneath the patellar tendon. The lateral patellofemoral ligament was released. The patella was everted and the knee was flexed. The osteophytes were taken off the distal femur. The ACL and PCL were then released and the distal femur and tibia subluxated anteriorly. The external tibial alignment jig was then placed in the anterior face of the tibia and adjusted 16 mm medially. Proximal tibial cut was made to remove about a millimeter or 2 of bone from the most deficient aspect of the medial tibial plateau. Some osteophytes were taken off medial and posteromedially. Tibia was sized to a size 79. Attention was then drawn to the femur. The distal femur was entered with a sharp drill bit. Intramedullary canal was suctioned. A right 6 degree valgus cutting guide was placed. Distal femoral cutting block was pinned in place. Distal femoral cut was made to take an additional 3 mm of bone off the distal femur. The femur was then sized to a size 75. We did downsize this slightly. The AP cutting block was pinned parallel to the epicondylar axis, which was 4 degrees of external rotation. The anterior cut, anterior chamfer, posterior cut, posterior chamfer cuts were made. Box cutting guide was placed and adjusted slightly laterally. The box cut was made. The knee was flexed. The remnants of the medial and lateral meniscus were excised. The osteophytes were taken off the posterior aspect of the femur. Trial femoral component was placed. Tibial tray was pinned in maximum external rotation and drill and stem punch were used to create defect in proximal tibia for the tibial tray. The knee was then trialed and a 10 mm insert fit most appropriately. Attention was then drawn to the patella. The patella was cleaned of all soft tissues. Patella thickness measured 23 mm and cut down to 14. It was sized to a size 34 patella. Lug holes were drilled for a 34 patella. The lateral osteophyte was removed. Patella button was placed. Knee was taken through range of motion and the patella tracked nicely with no thumbs test. Attention was then drawn toward placement of permanent components. All trial components were removed. Bone plug was placed in the distal femur to limit blood loss. A double batch of Palacos G cement was mixed. A right size 75 posterior stabilized femoral component, size 79 tibial tray, a 10 mm posterior stabilized polyethylene insert, and a 37 x 10 all poly patella were then cemented in place. Knee was brought out into full extension until the cement had hardened. A final cement check was then performed. Pericapsular tissues were injected with a total of 100 mL of a combination of 20 mL of Exparel, 30 mL of normal saline, 50 mL of 0.25% Marcaine with epinephrine. The patient did receive 1 gram of tranexamic acid. The tourniquet was then let down for final tourniquet time of 61 minutes. Hemostasis was assured with use of electrocautery. The extensor mechanism was then closed with a combination of #1 PDS suture and #1 Vicryl suture in a ydnrmk-gj-lpron fashion. Extensor mechanism was checked and found to be intact. The subcutaneous tissues were then closed with 2-0 Dexon suture in a buried interrupted fashion. Skin was closed skin ilan. Leg was then cleaned and dried and a sterile dressing of Xeroform, 4 x 4, sterile cast padding and Rigo bandage were applied. The patient then transferred to the recovery room in stable condition. The patient tolerated the procedure well with no complications. All needle and sponge counts were correct at the end of the operation. I attest to the content of the Intraoperative Record and any orders documented therein. Any exception s are noted below.
[2016-08-19 11:50] VITALS: BP 129/69; PULSE 59; TEMP 37; O2SAT 96
[2016-08-19] MEDS ORDERED: ACET-24 PO (15:03)
[2016-08-19] MEDS ORDERED: RXC5 PO (15:03)
[2016-08-19] MEDS ORDERED: MORP-157 PO (15:03)
--- NOTE | 2016-08-19 15:05 | Discharge Instructions ---
Discharge Instructions Date of Service Aug 19, 2016. Admission Reason for Admission: Right Knee Osteoarthritis Discharge Discharge Diagnosis / Problem: Right Knee Replacement Discharge Goals Goal(s): Decrease discomfort, Improve function, Increase independence, Improve disease control, Therapeutic intervention Activity Recommendations Activity Limitations: per Instructions/Follow-up section Weightbearing Status: Right weightbearing . Instructions / Follow-Up Instructions / Follow-Up ACTIVITY RECOMMENDATIONS: Physical Therapy: * You will go to physical therapy three times each week for four to six weeks after your surgery in order to regain your knee range of motion and to retrain your knee to work properly. * It is just as important to make sure you are getting your knee perfectly straight as it is to regain your knee bend. * Taking a pain pill an hour before therapy can help you have a more productive and comfortable therapy session. Home Exercise: * You were shown a series of exercises (heel props, heel slides, etc.) in the hospital. Do these exercises three to four times each day including the exercises you were shown in physical therapy. Walking: * Get up and walk several times each day. For the first four weeks, try not to stand or walk for more than one hour at a time. If you do stand or walk for more than one hour, you will not hurt anything, but your knee and leg will likely swell. * As you feel comfortable, you may change from the walker or crutches to a cane and then to independent walking. MEDICATIONS: New Medicine: * You will likely be taking one or more of these medications: 1. MS Contin - A long-acting pain medication. Take 1 tablet twice a day for the first ten days to decrease your baseline level of pain. 2. Oxycodone - A quick and shorter-acting pain medication. Take one to two tablets every four to six hours to lessen your pain. 3. Coumadin - Thins your blood to lessen the chance of forming a blood clot. The dose of this is different for each person and is based on your blood tests that are done every Sunday and . * The most common side effects of pain medicine and iron are nausea and constipation. If nausea or constipation is too much of a problem or if you have any questions about your new medicines or doses, call [facility] at . We will try to help you manage these issues. VERY IMPORTANT TO READ AND REVIEW" Pain: * The immediate post-operative period after knee replacement surgery is often quite painful. * You are given a prescription for pain medicine. You should take it, as directed, when you need it, especially before physical therapy and before going to bed. Pain that interferes with sleep is very common and can last several months. * You will likely need pain medicine for the first four to six weeks. It will not stop all of the pain. The pain will lessen and as you feel better, you may change to milder pain medicine such as Tylenol. * The most common side effects of pain medicine are nausea and constipation, so don't take more than you need. SPECIAL CARE INSTRUCTIONS: TEDs/Elastic Stockings: * The white elastic stockings help limit swelling and prevent blood clots from forming in your legs. The more you wear them, the more they work. * Wear them for six weeks after knee replacement surgery and four weeks after partial knee replacement. Prevention of Infection: * Take antibiotics one hour before any dental cleaning, dental work, urological procedure, gastrointestinal procedure or any invasive surgery in order to prevent your new joint from getting infected. * You may get the antibiotics from the doctor performing the procedure or you may call our office at before and we will call in a prescription to the pharmacy of your choice. Things to Watch For: * Drainage from the incision site that occurs more than one week after your surgery. * Severely increased knee/leg pain or swelling. * Increased redness at the incision site. * Fever above 102 degrees Fahrenheit. * Unusual chest pain or shortness of breath. * Unusual pain or burning with urination. Call [facility] at with any of the above problems or if you have any questions about your medicines or recovery. FOLLOW UP VISIT: Make an appointment to see your doctor for approximately two weeks after surgery for a progress check and staple removal by calling the office at . Current Hospital Diet Patient's current hospital diet: Regular Diet Discharge Diet Recommended Diet: Regular Diet Procedures Procedures Performed: Right total knee arthroplasty Pending Studies Studies pending at discharge: no Medical Emergencies . Who to Call and When: Medical Emergencies: If at any time you feel your situation is an emergency, please call [phone] immediately. . Non-Emergent Contact Non-Emergency issues call your: Surgeon . "Provider Documentation" section prepared by Jaime Segovia. . VTE Core Measure Inpt VTE Proph given/why not?: Gisela (Coumadin), Chester Warner, SCD's
[2016-08-19 15:19] VITALS: BP 126/64; PULSE 61; TEMP 36.5; O2SAT 97
[2016-08-19] MEDS ORDERED: WARFARIN SOD 10 MG TAB PO ONE (16:00)
[2016-08-19] MEDS: DILTIAZEM HCL 120 MG ER CAP PO SCH (20:48)
[2016-08-19] MEDS: SENNA 8.6 MG TAB PO SCH (20:49)
[2016-08-19] MEDS: CETIRIZINE HCL 10 MG TAB PO SCH (20:49)
[2016-08-19 22:55] VITALS: BP 113/57; PULSE 69; TEMP 36.9; O2SAT 96
[2016-08-20] MEDS: OXYCODONE HCL IR 5 MG TAB (IMMEDIATE RELEASE) PO PRN ×2 (01:58→07:23)
[2016-08-20 05:51] LABS: INR 1.5 (0.9-1.1); PROTHROMBIN TIME (PATIENT) 16.3 SECONDS (9.0-12.0)
[2016-08-20 06:06] VITALS: BP 115/62; PULSE 58; TEMP 37; O2SAT 94
[2016-08-20] MEDS: FLUTICASONE PROPIONATE NA SPR 16 GM BTL NAE SCH (07:23)
[2016-08-20] MEDS: TAPENTADOL ER 50 MG TABCR PO SCH (07:23)
[2016-08-20] MEDS: FLECAINIDE ACETATE 100 MG TAB PO SCH (07:23)
[2016-08-20] MEDS: LOSARTAN/HCTZ 50-12.5 EA TAB PO SCH (07:23)
[2016-08-20] MEDS: PANTOprazole SOD 40 MG TAB PO SCH (07:24)
[2016-08-20] MEDS: ACETAMINOPHEN 500 MG TAB PO SCH (07:24)
[2016-08-20] MEDS: FERROUS GLUCONATE 324 MG TAB PO SCH (07:24)
[2016-08-20] MEDS: MULTIVITAMIN TAB PO SCH (07:24)
[2016-08-20] MEDS: DOCUSATE SODIUM 100 MG CAP PO SCH (07:24)
[2016-08-20 07:27] VITALS: BP 115/62; PULSE 58; TEMP 37; O2SAT 94
--- NOTE | 2016-08-20 10:59 | PROGRESS NOTE ---
DATE: 08/20/2016 CARDIOLOGY CONSULTATION FOLLOWUP NOTE The patient seen and examined. Chart, medications, laboratory studies reviewed. SUBJECTIVE: The patient feels improved this morning. Anticipates probable discharge later today. Pain is controlled and recent right knee replacement. Notes no tachypalpitations. Notes no dizziness or lightheadedness. Heart rate and blood pressure have been well controlled. He has resumed anticoagulation and INR this morning is 1.5. OBJECTIVE: VITAL SIGNS: Heart rate is 58, blood pressure is 115/62. NECK: Thick. There is no distinct jugular venous distention. LUNGS: Clear. CARDIOVASCULAR: Regular. There is no S3 gallop. ABDOMEN: Soft. EXTREMITIES: Reveal healing surgical incision on the right knee. 1-2+ lower extremity edema, right slightly greater than left. IMPRESSION: A 61-year-old male with history of paroxysmal atrial fibrillation, controlled in sinus rhythm combination of flecainide and diltiazem. Hypertension with good control. RECOMMENDATIONS: I have changed diltiazem to evening dosing. The patient is aware of the change and will continue this at home. I have cautioned to follow sodium and fluid intake, and signs and symptoms of worsening edema; gradually begin increasing activities as planned through physical therapy.
--- NOTE | 2016-08-20 12:24 | PROGRESS NOTE ---
DATE: 08/20/2016 SUBJECTIVE: A 61-year-old gentleman postop day 2 from right knee replacement. He is doing pretty well. Pain has been pretty well-controlled over the past day. No chest pain or shortness of breath. Not feeling dizzy or lightheaded. OBJECTIVE: VITAL SIGNS: Temperature is 37.0. Vital signs stable. PHYSICAL EXAMINATION: GENERAL: Reveals a healthy, pleasant, middle-aged male. He is sitting up in his bedside chair and looks pretty comfortable. EXTREMITIES: Examination of the right leg reveals the dressing to be clean, dry and intact. Just a trace bit of bloody drainage. He can dorsiflex and plantarflex his foot appropriately. He is neurologically intact. ASSESSMENT: A 61-year-old gentleman postop day 2 from right knee replacement, doing pretty well. Pain is controlled. PLAN: 1. DVT prophylaxis include thigh-high TEDs, SCDs, and Coumadin with a goal of keeping his INR between 2 and 3. 2. PT/OT. Weightbear as tolerated. Right total knee protocol. 3. Pain control, doing pretty well with current pain regimen. 4. Disposition: Plan to discharge to home with home health later today.
[2016-08-20] MEDS ORDERED: WARFARIN SOD 4 MG TAB PO ONE (16:00)
--- NOTE | 2016-09-01 15:39 | Discharge Summary ---
Orthopedic Discharge Summary Admission Date/Reason Aug 18, 2016 at 07:00 Right Knee Osteoarthritis. Discharge Date/Disposition Aug 20, 2016 Home with services Diagnosis Principal Diagnosis: right knee DJD Secondary Diagnoses/Problems: 1. Atrial fibrillation, status post ablation x2 but still on Coumadin. 2. Hypertension. 3. Asthma. 4. Sleep apnea, on CPAP machine. 5. Obesity with a BMI of 37 Procedure(s) Performed Right TKA Consultations Dr. Ariza, cardiology Medication Reconciliation New Medications: Acetaminophen (Sb Non-Aspirin Extra Stre) 500 Mg Tab 1000 MG PO Q8H for 30 Days, #180 TAB Take 3 times per day to lessen pain. Oxycodone HCl (Oxycodone HCl) 5 Mg Tab 5-10 MG PO Q6H PRN for Pain for 30 Days, #60 TAB Take as needed for Pain. Continued Medications: Albuterol Hfa (Ventolin Hfa) 200 Puffs/87605 Mcg Aers 2 PUFFS INH QID PRN for SOB/Wheezing, #1 INHALER Cetirizine (Zyrtec) 10 Mg Tab 10 MG PO HS, TAB Ywqcojdt-Gkppfviouzw-Bqeyombcn (Hyaluronic Acid) 1 Cap Cap 1 CAP PO BID DOSE 20/60 Diltiazem Hcl Extended Release (Diltiazem Hcl Er) 240 Mg Cap 240 MG PO QAM Flecainide (Tambocor) 100 Mg Tab 100 MG PO BID, TAB Fluticasone Propionate (Fluticasone Propionate) 50 Mcg/Act Spr 2 SPRAYS JAMAL BID Levalbuterol (Levalbuterol HCl) 0.63 Mg/3 Ml Nebu 0.63 MG INH QID PRN for Shortness of Breath Losartan Potassium & Hydrochlo (Hyzaar) 1 Tab Tab 1 TAB PO QAM DOSE OF 100/25MG Magnesium Oxide (Magnesium) 400 Mg Tab 400 MG PO QPM Probiotic Product (Probiotic) 1 Cap Cap 2 CAP PO DAILY Turmeric (Curcuma Longa) (Turmeric) 500 Mg Cap 1 CAP PO QAM Warfarin Sodium (Warfarin Sodium) 5 Mg Tab 2 TAB PO 2XWK for 90 Days, TAB 3 Refills SUNDAYS - IN PM Warfarin Sodium (Warfarin Sodium) 5 Mg Tab 1 TAB PO 6XWK for 90 Days, TAB 3 Refills NOT ON SUNDAYS - TAKES IN PM Admission Physical Exam As per Admitting History & Physical. Hospital Course Dennys was admitted on 08/18/16 and underwent TKA. He tolerated the procedure well. He was transferred to the pacu post op and later to the orthopedic floor for further care. He was given ancef for antibiotic prophylaxis. Teds, scd's and coumadin for dvt prophylaxis. INR was monitored daily and coumadin dosed accordingly. His hemoglobin, hematocrit and vital signs were monitored during his hospital stay and remained stable. He did not require any blood transfusions. He was followed by cardiology though out his hospital stay. There were no complications. By POD#2 he was tolerating a general diet. Pain was controlled with oral pain medicine. He was participating in PT. Had no s/s of dvt On POD#2 he was discharged home with home health. He was given printed discharge instructions as well as the above medications. Continue PT, [facility]. follow up in 10-12 days or sooner if there are problems or concerns. Discharge Instructions Please refer to the electronic Patient Visit Report (Discharge Instructions) for additional information.
[2016-10-17] MEDS ORDERED: WARF7.5T4 PO (10:58)
== END 2016-08-20 10:24 | disposition home health service (06) | DRG 470 ==
LOC: C.ACU 06:32 → C.3E 07:00 → ENRESERV 11:43
PROVIDERS: ADMIT Orthopaedic Surgery Sports Medicine; ATTEND Orthopaedic Surgery Sports Medicine
PROC: 0SRC0J9 Replacement of Right Knee Joint with Synthetic Substitute, Cemented, Open Approach (ICD-10-PCS; principal; 2016-08-18 08:50)
DX: M17.0 Bilateral primary osteoarthritis of knee (principal); M25.461 Effusion, right knee; M21.162 Varus deformity, not elsewhere classified, left knee; M21.161 Varus deformity, not elsewhere classified, right knee; I10 Essential (primary) hypertension; I48.0 Paroxysmal atrial fibrillation; J45.909 Unspecified asthma, uncomplicated; E66.9 Obesity, unspecified; G47.33 Obstructive sleep apnea (adult) (pediatric); Z99.89 Dependence on other enabling machines and devices; Z68.37 Body mass index [BMI] 37.0-37.9, adult; Z79.1 Long term (current) use of non-steroidal anti-inflammatories (NSAID); Z79.899 Other long term (current) drug therapy

== ENCOUNTER → 2016-08-29 | Outpatient (CLI) | payer OTHER ==
[~2016-08-29] MED LIST changes: +ACET-24 PO; -ACETAMINOPHEN 500 MG TAB PO SCH; -BUPIVACAINE LIPOSOME 266 MG, BUPIVACAINE/EPINEPHRINE INJ 50 ML, SODIUM CHLORIDE 0.9% PF... INFIL SCH; -CEFAZOLIN 3000 MG/65 ML D5W 65 ML IV SCH; -FAMOTIDINE 20 MG TAB PO SCH; -GABAPENTIN 300 MG CAP PO SCH; -LACTATED RINGER'S 1000ML 1,000 ML IV SCH; -LACTATED RINGER'S 1000ML 500 ML IV ONE; -LACTATED RINGER'S 1000ML IV SCH; -METOCLOPRAMIDE HCL 10 MG TAB PO SCH; +MORP-157 PO; +RXC5 PO; -SCOPOLAMINE 1.5 MG TDSY TD SCH; -TRANEXAMIC ACID INJ 1,000 MG in SODIUM CHLORIDE 0.9% 100ML 100 ML IV SCH; +WARF7.5T4 PO
[2016-08-29 11:56] LABS: INR 1.9 (0.9-1.1); PROTHROMBIN TIME (PATIENT) 21.1 SECONDS (9.0-12.0)
--- NOTE | 2016-09-15 13:20 | CODING QUERY NO DIAGNOSIS ---
Valid Physician Order Needed A valid physician order must be submitted in order to properly bill for the service(s) provided, including date of service(s), valid diagnosis, and physician signature. If these tests are done on a recurring basis the original physican order must be submitted in order to code and bill for the service(s) provided. Please fax us the original, signed physician order so that we may expedite billing to [phone] DOS 08/29/16 * PT/INR Thank you [facility] Information Management
== END | disposition home or self-care (01) ==
LOC: C.LABSPEC 11:26
PROVIDERS: ATTEND Orthopaedic Surgery Sports Medicine
DX: Z01.89 Encounter for other specified special examinations (principal)

== ENCOUNTER → 2016-09-01 | Outpatient (CLI) | payer OTHER ==
--- NOTE | 2016-09-01 12:06 | DIAGNOSTIC IMAGING REPORT ---
Venous Doppler right leg RIGHT VENOUS DOPP LOWER EXT UNILAT CLINICAL HISTORY: RIGHT KNEE PAIN, SWELLING R/O DVT Right pain. Edema. TECHNIQUE: Venous Doppler COMPARISON STUDY: None FINDINGS: Normal study IMPRESSION: Normal study right leg Electronically signed by: Peter Peters M.D. 09/01/2016 12:05 PM Dictated Date/Time: 09/01/2016 12:04 PM
== END | disposition home or self-care (01) ==
LOC: C.ULTRBC 11:21
PROVIDERS: ATTEND Orthopaedic Surgery
DX: Z96.651 Presence of right artificial knee joint (principal); M25.561 Pain in right knee; M79.89 Other specified soft tissue disorders

== ENCOUNTER → 2016-10-09 | Outpatient (CLI) | payer OTHER | END | disposition home or self-care (01) | LOC: C.LABBC 12:09 | PROVIDERS: ATTEND Orthopaedic Surgery Sports Medicine | DX: Z01.812 Encounter for preprocedural laboratory examination (principal) ==

== ENCOUNTER 2016-10-26 08:58 | Inpatient (IN) | payer OTHER ==
[2016-10-09 14:06] LABS: BASO % 0.3 %; BASO ABS # 0.02 K/uL (0-0.2); COMPLETE YES; EOS % 1.8 %; HEMATOCRIT 41.6 % (42-52); IG% 0.2 %; LYMPH ABS # 1.77 K/uL (1.2-3.4); MEAN CELL VOLUME 93.7 fL (80-100); MEAN CORPUSCULAR HEMOGLOBIN 32.2 pg (25-34); MEAN CORPUSCULAR HGB CONC 34.4 g/dl (32-36); MONO % 13.3 %; NEUT % 55.4 %; PLATELET COUNT 252 K/uL (130-400); RED BLOOD COUNT 4.44 M/uL (4.7-6.1)
[2016-10-09 14:33] LABS: INR 2.1 (0.9-1.1); PARTIAL THROMBOPLASTIN RATIO 1.4; PROTHROMBIN TIME (PATIENT) 23.2 SECONDS (9.0-12.0)
[2016-10-09 17:35] LABS: BLOOD UREA NITROGEN 14 mg/dl (7-18); BUN/CREATININE RATIO 17.1 (10-20); C-REACTIVE PROTEIN < 0.29 mg/dl (0-0.29); CARBON DIOXIDE 29 mmol/L (21-32); CHLORIDE 101 mmol/L (98-107); CREATININE 0.81 mg/dl (0.60-1.40); GLUCOSE 102 mg/dl (70-99); POTASSIUM 3.7 mmol/L (3.5-5.1); SODIUM 135 mmol/L (136-145)
--- NOTE | 2016-10-16 23:25 | HISTORY & PHYSICAL EXAMINATION ---
DATE OF ADMISSION: 10/26/2016 CHIEF COMPLAINT: Left knee pain. HISTORY OF PRESENT ILLNESS: The patient is a 61-year-old gentleman who is now a little over 2 months out from a right knee replacement. He has got a long history of bilateral knee pain and discomfort, and I have been following for the past 3 years, treating with injections. This has become less successful over time. He is now a little over 2 months out from his right knee replacement, doing well and would like to proceed with left knee replacement. All in all, his knee has been hurting for about 10 years. He cannot take NSAIDs due to a history of atrial fibrillation/flutter, on Coumadin. He is having difficulty working as he is self-employed as an [employer] specialist. He would like to have his other knee fixed now so he can get back to work. PAST MEDICAL HISTORY: 1. Atrial fibrillation, status post ablation x2, on Coumadin. 2. Hypertension. 3. Asthma. 4. Sleep apnea with CPAP machine. 5. Obesity with a BMI of 37. PREVIOUS SURGERIES: Include: 1. Cardiac ablation x2. 2. Right knee replacement done 08/18/2016. ALLERGIES: ALLOPURINOL AND PADMINI INHIBITORS. CURRENT MEDICINES: Include: 1. Coumadin 5 mg every day except Sunday when he takes 10. 2. Flecainide once a day. 3. Losartan. 4. Zyrtec. 5. Fluticasone nasal spray. 6. Osteo Bi-Flex. 7. Centrum Silver. SOCIAL HISTORY: He is a 61-year-old male. He is self-employed. He is . One drink per day. Does not smoke. FAMILY HISTORY: Noncontributory. REVIEW OF SYSTEMS: Significant for atrial flutter/fibrillation. Status post ablation with some recurrence. Denies any chest pain or shortness of breath. No history of DVT or PE. He is on Coumadin. PHYSICAL EXAMINATION: GENERAL: Reveals a healthy, pleasant middle-aged male. He looks to be in pretty good health. HEENT: Benign. NECK: Supple. No lymphadenopathy. LUNGS: Clear to auscultation. HEART: Regular rate and rhythm. ABDOMEN: Soft, nontender, nondistended. EXTREMITIES: Grossly neurovascularly intact except as follows: Examination of the left knee reveals the patient ambulates independently. He has got varus alignment to his knee. Small knee effusion. He is tender over the medial joint line. Range of motion is 5-125. No instability. X-RAYS: X-rays of the left knee were reviewed. Show advanced left knee DJD. He has got complete loss of his medial joint space. ASSESSMENT: A 61-year-old gentleman, self-employed, now a little over 8 weeks out from a right knee replacement, doing well, with advanced left knee degenerative joint disease. He has failed conservative treatment and would like to proceed with operative treatment. PLAN: We are going to take him to the operating room and do left total knee replacement. The risks and benefits of this procedure were explained to the patient including but not limited to DVT, PE, , infection, neurological injury, vascular injury, bleeding problem, pain, limited range of motion, stiffness, failure to relieve his symptoms, incomplete relief of symptoms, need for further surgery in the future, fracture, leg length inequality, nerve palsy, etc. The patient understands and desires to proceed. Informed consent was obtained. The patient is aware to stop his Coumadin 5 days preop. We will get a stat PT and INR the a.m. of surgery. He will take his flecainide the morning of surgery. As far as discharge plans, he is planning to be discharged to home using [facility] home health program. We will likely have [facility] cardiology follow him in the hospital due to his heart history.
[2016-10-17 11:07] VITALS: BMI 33.0
[~2016-10-26] VITALS: Ht 198.1 cm; Wt 131.7 kg
[2016-10-26] VITALS (8 sets, daily range): BP systolic 116–164; BP diastolic 63–85; PULSE 59–72; TEMP 36.3–36.8; O2SAT 96–100; Ht 198.1 cm; Wt 131.7 kg
[~2016-10-26 08:58] MED LIST changes: -ACET-24 PO; +ACETAMINOPHEN 500 MG TAB PO SCH; +ATROPINE SULFATE 0.1 MG/ML 5ML SYR IV PRN; +BUPIVACAINE 0.25% 30 ML VIAL ONE; +BUPIVACAINE 0.5 % 5 MG/1 ML PF 10ML VIAL ONE; +BUPIVACAINE LIPOSOME 266 MG, BUPIVACAINE/EPINEPHRINE INJ 50 ML, SODIUM CHLORIDE 0.9% PF... INFIL SCH; +CEFAZOLIN 3000 MG/65 ML D5W 65 ML IV SCH; +EpHEDrine SULFATE INJ 50 MG/ML AMP IV PRN; +FAMOTIDINE 20 MG TAB PO SCH; +FENTANYL CITRATE INJ 50 MCG/1 ML 2 ML VIAL ONE; +GABAPENTIN 300 MG CAP PO SCH; +LACTATED RINGER'S 1000ML 1,000 ML IV SCH; +LACTATED RINGER'S 1000ML IV SCH; +METOCLOPRAMIDE HCL 10 MG TAB PO SCH; +MIDAZOLAM HCL 1 MG/ML 2ML VIAL ONE; -MORP-157 PO; +ONDANSETRON INJ 2 MG/ML 2 ML VIAL IV PRN; -RXC5 PO; +SCOPOLAMINE 1.5 MG TDSY TD SCH; +TRANEXAMIC ACID INJ 1,000 MG in SODIUM CHLORIDE 0.9% 100ML 100 ML IV SCH
[2016-10-26 10:24] LABS: INR 1.1 (0.9-1.1); PARTIAL THROMBOPLASTIN RATIO 1.1; PROTHROMBIN TIME (PATIENT) 11.9 SECONDS (9.0-12.0)
[2016-10-26] MEDS ORDERED: BACITRACIN 50000 UNIT VIAL ONE (11:39)
[2016-10-26] MEDS ORDERED: BUPIVACAINE LIPOSOME 1/3% 266 MG/20 ML VIAL INFIL ONE (11:39)
[2016-10-26] MEDS ORDERED: BUPIVACAINE/EPINEPHRINE 0.25% 1:200,000 30 ML VIAL ONE (11:39)
[2016-10-26] MEDS ORDERED: SODIUM CHLORIDE 0.9% PF 50 ML VIAL ONE (11:39)
[2016-10-26] MEDS ORDERED: PROPOFOL IV EMULSION 10 MG/ML 20 ML VIAL IV ONE ×2 (11:59→12:46)
[2016-10-26] MEDS ORDERED: MIDAZOLAM HCL 1 MG/ML 2ML VIAL ONE (11:59)
[2016-10-26] MEDS ORDERED: PHENYLEPHRINE 100MCG/ML 5ML SYR ONE (12:21)
--- NOTE | 2016-10-26 13:43 | [facility] Post Operative Brief Note ---
Immediate Operative Summary Operative Date Oct 26, 2016. Pre-Operative Diagnosis Left Knee, Degenerative Joint Disease Post-Operative Diagnosis Same as preoperative Procedure(s) Performed Left Total Knee Arthroplasty Surgeon Dr. Jaime Segovia Atmospheric Technician Surgeon(s) Pedro Pablo Chery PA-C Estimated Blood Loss 50ml Findings Left Knee DJD Fluids (cc crystalloids) 1400 cc Specimens A.) Left Knee Bone and Tissue Drains None Anesthesia Spinal Complication(s) None Disposition Recovery Room / PACU
[2016-10-26] MEDS ORDERED: MoRPHine SULFATE 2 MG/ML CARP IV PRN (13:45)
[2016-10-26] MEDS ORDERED: ALBUTEROL HFA 8 GM INHALER INH PRN (13:45)
[2016-10-26] MEDS ORDERED: TAMSULOSIN HCL 0.4 MG CAP PO PRN (13:45)
[2016-10-26] MEDS ORDERED: SILVER SULFADIAZINE 1% CR 50 GM JAR EXT PRN (13:45)
[2016-10-26] MEDS ORDERED: ALUMINUM/MAGNESIUM/SIMETH (MAALOX MAX) 30 ML UDC PO PRN (13:45)
[2016-10-26] MEDS ORDERED: LEVALBUTEROL 0.63MG/3 ML NEB INH PRN (13:45)
[2016-10-26] MEDS ORDERED: DiphenhydrAMINE HCL 50 MG/ML VIAL IV PRN (13:45)
[2016-10-26] MEDS ORDERED: MAGNESIUM HYDROXIDE SUSP 30 ML UDC PO PRN (13:45)
[2016-10-26] MEDS ORDERED: ZOLPIDEM TARTRATE 5 MG TAB PO PRN (13:45)
[2016-10-26] MEDS ORDERED: ONDANSETRON INJ 2 MG/ML 2 ML VIAL IV PRN (13:45)
[2016-10-26] MEDS ORDERED: BISACODYL 10 MG SUPP PR PRN (13:45)
[2016-10-26] MEDS ORDERED: METOCLOPRAMIDE HCL INJ 5 MG/ML 2 ML VIAL IV PRN (13:45)
--- NOTE | 2016-10-26 14:26 | Anesthesiology Progress Note ---
Anesthesia Post Op Note Date & Time Oct 26, 2016 at 14:26 Vital Signs Pain Intensity: 0 Vital Signs Past 12 Hours Date Time Temp Pulse Resp B/P (MAP) Pulse Ox O2 Delivery O2 Flow Rate FiO2 10/26/16 14:15 36.1 66 16 124/63 99 Nasal Cannula 2 10/26/16 14:05 66 16 128/61 99 Nasal Cannula 2 10/26/16 13:55 68 16 121/61 99 Nasal Cannula 2 10/26/16 13:48 36.0 76 16 126/60 97 Nasal Cannula 2 10/26/16 09:22 36.7 69 20 157/79 96 Room Air Notes Mental Status: alert / awake / arousable, participated in evaluation Pt Amnestic to Procedure: Yes Nausea / Vomiting: adequately controlled Pain: adequately controlled Airway Patency, RR, SpO2: stable & adequate BP & HR: stable & adequate Hydration State: stable & adequate Neuraxial Anesthesia: was administered, sensory block is resolving Anesthetic Complications: no major complications apparent
[2016-10-26] MEDS: D5W AND 1/2NSS + 20MEQ KCL 1,000 ML IV SCH ×2 (15:50→22:22)
[2016-10-26] MEDS: CHECK SCOPOLAMINE PATCH PLACEMENT SCH ×2 (15:51→23:48)
--- NOTE | 2016-10-26 15:57 | DIAGNOSTIC IMAGING REPORT ---
TWO VIEWS LEFT KNEE CLINICAL HISTORY: Postoperative examination. FINDINGS: AP and crosstable lateral portable views of the left knee are obtained. A left knee arthroplasty is in near anatomic alignment. There has been undersurface remodeling of the patella. No acute fracture is seen. A fabella is incidentally noted. There are expected postoperative changes around the knee including skin clips, soft tissue edema, and subcutaneous gas. IMPRESSION: Expected postoperative changes status post left knee arthroplasty. No acute fracture is seen. Electronically signed by: Jos Ruff M.D. 10/26/2016 3:55 PM Dictated Date/Time: 10/26/2016 3:55 PM
[2016-10-26] MEDS: KETOROLAC TROMETHAMINE 30 MG/ML VIAL IV. SCH ×2 (15:58→22:23)
[2016-10-26] MEDS ORDERED: WARFARIN SOD 10 MG TAB PO ONE (16:00)
[2016-10-26] MEDS: OXYCODONE HCL IR 5 MG TAB (IMMEDIATE RELEASE) PO PRN (16:56)
[2016-10-26] MEDS: FERROUS GLUCONATE 324 MG TAB PO SCH (18:38)
--- NOTE | 2016-10-26 20:08 | PROGRESS NOTE ---
DATE: 10/26/2016 SUBJECTIVE: A 61-year-old gentleman, postop from a left knee replacement. He is doing reasonably well. He had got a little bit behind on pain, but doing better now. No chest pain or shortness of breath. Not feeling dizzy or lightheaded. OBJECTIVE: VITAL SIGNS: Temperature 36.5. Vital signs are stable. GENERAL: Physical examination reveals a healthy, pleasant and middle-aged male. He is sitting up in bed and looks pretty comfortable. LUNGS: Clear to auscultation. HEART: Regular rate and rhythm. ABDOMEN: Soft, nontender and nondistended. EXTREMITIES: Grossly neurovascularly intact except as follows: Examination of the left leg reveals the dressing to be clean, dry and intact. The patient can dorsiflex and plantarflex his foot appropriately. He is neurologically intact. X-RAYS: X-rays of the left knee from recovery room were reviewed. It shows a left cemented posterior stabilized total knee arthroplasty. Components looked to be in good position. No signs of problems. ASSESSMENT: A 61-year-old gentleman, postop from a left knee replacement, doing well. Pain is controlled. He is neurologically intact. PLAN: 1. DVT prophylaxis including thigh-high TEDs, SCDs and resume coumadin. Will give 10 mg bolus tonight 2. PT/OT. Weightbearing as tolerated. Left total knee protocol. 3. IV antibiotics x24 hours. 4. Pain control, doing well with current pain regimen. 5. Disposition: Plan to discharge to home with some home health once adequately recovered. NAVI
[2016-10-26] MEDS: CEFAZOLIN IV 2,000 MG in DEXTROSE 5% 50ML 50 ML IV SCH (20:11)
[2016-10-26] MEDS: FLUTICASONE PROPIONATE NA SPR 16 GM BTL NAE SCH (21:03)
[2016-10-26] MEDS: TAPENTADOL ER 50 MG TABCR PO SCH (21:03)
[2016-10-26] MEDS: DOCUSATE SODIUM 100 MG CAP PO SCH (21:03)
[2016-10-26] MEDS: MAGNESIUM OXIDE 400 MG TAB PO SCH (21:03)
[2016-10-26] MEDS: DILTIAZEM HCL 120 MG EXT REL CAP PO SCH (21:04)
[2016-10-26] MEDS: SENNA 8.6 MG TAB PO SCH (21:04)
[2016-10-26] MEDS: CETIRIZINE HCL 10 MG TAB PO SCH (21:04)
[2016-10-26] MEDS: FLECAINIDE ACETATE 100 MG TAB PO SCH (21:05)
[2016-10-26] MEDS: ACETAMINOPHEN 500 MG TAB PO SCH (22:22)
--- NOTE | 2016-10-26 23:48 | OPERATIVE REPORT ---
DATE OF OPERATION: 10/26/2016 SURGEON: Jaime Segovia MD. LIGHT RAIL OPERATOR: AMY Caceres. PREOPERATIVE DIAGNOSIS: Left knee degenerative joint disease. POSTOPERATIVE DIAGNOSIS: Same. PROCEDURE PERFORMED: Left cemented posterior stabilized total knee arthroplasty. COMPLICATIONS: None. ESTIMATED BLOOD LOSS: 50 mL FLUID REPLACEMENT: 1400 mL crystalloid fluid replacement. TOURNIQUET TIME: 57 minutes at 300 mmHg. ANESTHESIA: Spinal with adductor canal block. DRAINS: None. SPECIMENS: Left knee sent for pathology. OPERATIVE INDICATIONS: The patient is a 61-year-old gentleman, self-employed, who has had a long history of bilateral knee pain and discomfort. He has recently undergone a right knee replacement, done well from that. He would really like to get his left knee replaced to shorten his recovery period as he is self-employed. He has been through extensive conservative care. The patient elected to proceed with operative treatment. OPERATIVE FINDINGS: Revealed advanced left knee DJD. He had grade 4 gobp-da-lvan disease of the medial femoral condyle and medial tibial plateau. There was no real bony eburnation but complete cartilage loss. A moderate size joint effusion. Varus deformity to his knee. Posterior femoral osteophytes. OPERATIVE IMPLANTS: Consisted of: 1. Biomet Vanguard size 75 left posterior stabilized femoral component. 2. Biomet size 83 tibial tray. 3. A 10 mm posterior stabilized polyethylene insert. 4. A 34 x 8.5 all poly patella. OPERATIVE PROCEDURE: The patient was taken to the operating room, identified and placed on the operating table in supine position. All contact areas were appropriately padded. IV antibiotics provided by anesthesia team. A spinal anesthetic and adductor canal block had been provided in the holding area. Downey catheter was placed in sterile fashion. A left thigh tourniquet was then placed and left lower extremity was then prepped and draped in usual sterile fashion. Left leg was elevated and exsanguinated with Esmarch and tourniquet was placed at 300 mmHg. An anterior approach of the left knee was then performed through a longitudinal incision centered over the patella. Sharp dissection was carried through the subcutaneous tissues down to the level of the extensor mechanism. A medial parapatellar arthrotomy incision was made. Some subperiosteal dissection was carried out medially. The fat pad was resected from beneath the patellar tendon. Lateral patellofemoral ligament was released. The patella was everted and the knee was flexed. The osteophytes were taken off the distal femur. The ACL and PCL were then released from the distal femur and the tibia subluxated anteriorly. The external tibial alignment jig was then placed in the anterior face of the tibia and adjusted 16 mm medially. Proximal tibial cut was made to remove about 2 mm of bone from the most deficient aspect of the medial tibial plateau. The tibia was sized to a size 83. Attention was then drawn to the femur. The distal femur was entered with a sharp drill bit. Intramedullary canal was suctioned. Left 6-degree valgus cutting guide was placed. Distal femoral cutting block was pinned in place. Distal femoral cut was made to take an additional 3 mm of bone off the distal femur. The femur was then sized to a size 75. The AP cutting block was pinned parallel to the epicondylar axis which was 5 degrees of external rotation. The anterior cut, anterior chamfer, posterior cut, posterior chamfer cuts were made. Box cutting guide was placed and adjusted slightly lateral and the box cut was made. The knee was flexed. The remnants of the medial and lateral menisci were excised. The osteophytes were taken off the posterior aspect of the femur. Trial femoral component was placed. Tibial tray was pinned in maximum external rotation, and drill and stem punch were used to create defect in the proximal tibia for the tibial tray. The knee was then trialed and the 10 mm insert fit most appropriately. Attention was then drawn to the patella. The patella was cleaned of all soft tissues. Patella thickness measured 23 mm, cut down to 14. It was sized to a size 34 patella. Lug holes were drilled for a 34 patella. Lateral osteophyte was removed. Patella button was placed. Knee was taken through range of motion and the patella tracked nicely with no thumbs test. Attention was then drawn toward placement of permanent components. All trial components were removed. A bone plug was placed in the distal femur to limit blood loss. A double batch of Palacos G cement was mixed. A left size 75 posterior stabilized femoral component, a size 83 tibial tray, a 10 mm posterior stabilized polyethylene insert, and a 34 x 8.5 all poly patella were then cemented in place. Knee was brought out into full extension until cement hardened. Final cement check was then performed. The pericapsular tissues were injected with a total of 100 mL of a combination of 20 mL of Exparel, 30 mL of normal saline, 50 mL of 0.25% Marcaine with epinephrine. The tourniquet was then let down for a tourniquet time of 57 minutes. Hemostasis was assured with use of electrocautery. The wound was once again irrigated. The extensor mechanism was then closed with a combination of #1 PDS suture and #1 Vicryl suture in a [id number] fashion. Extensor mechanism was checked and found to be intact. The subcutaneous tissues were then closed with 2-0 Dexon suture in a buried interrupted fashion. Skin was closed with skin ilan. Leg was then cleaned and dried, and a sterile dressing of Xeroform, 4 x 4's, sterile cast padding and an Rigo bandage was applied. The patient was transferred to the recovery room in stable condition. The patient tolerated the procedure well, no complications. All needle and sponge counts were correct at the end of the operation. I attest to the content of the Intraoperative Record and any orders documented therein. Any exception s are noted below.
[2016-10-27] VITALS (7 sets, daily range): BP systolic 114–151; BP diastolic 64–74; PULSE 59–87; TEMP 36.9–37.6; O2SAT 91–96
[2016-10-27] MEDS: KETOROLAC TROMETHAMINE 30 MG/ML VIAL IV. SCH ×2 (04:17→10:55)
[2016-10-27] MEDS: CEFAZOLIN IV 2,000 MG in DEXTROSE 5% 50ML 50 ML IV SCH (04:17)
[2016-10-27] MEDS: ACETAMINOPHEN 500 MG TAB PO SCH ×3 (05:43→21:34)
[2016-10-27] MEDS: D5W AND 1/2NSS + 20MEQ KCL 1,000 ML IV SCH ×2 (05:43→12:00)
[2016-10-27 06:17] LABS: MEAN CELL VOLUME 95.7 fL (80-100); MEAN CORPUSCULAR HEMOGLOBIN 31.4 pg (25-34); MEAN CORPUSCULAR HGB CONC 32.8 g/dl (32-36); MEAN PLATELET VOLUME 9.4 fL (7.4-10.4); PLATELET COUNT 176 K/uL (130-400); RED BLOOD COUNT 3.76 M/uL (4.7-6.1); WHITE BLOOD COUNT 6.19 K/uL (4.8-10.8)
[2016-10-27 06:27] LABS: INR 1.2 (0.9-1.1); PROTHROMBIN TIME (PATIENT) 12.4 SECONDS (9.0-12.0)
[2016-10-27 06:40] LABS: CALCIUM 7.7 mg/dl (8.5-10.1); CREATININE 0.81 mg/dl (0.60-1.40); POTASSIUM 4.1 mmol/L (3.5-5.1)
--- NOTE | 2016-10-27 07:05 | CARDIOLOGY CONSULTATION ---
DATE OF CONSULTATION: 10/26/2016 REFERRING PHYSICIAN: Dr. Jamie Segovia. REASON FOR CONSULTATION: Paroxysmal atrial fibrillation, hypertension, and postoperative care. HISTORY OF PRESENT ILLNESS: Mr. Andrews is a 61-year-old gentleman who underwent right knee replacement in August. He returned today for elective left-sided knee replacement. Procedure uncomplicated. He was seen and examined at the bedside. No chest pain or palpitations. He carries a history of paroxysmal atrial fibrillation x2, PVI ablations in the past and currently maintained in sinus rhythm with b.i.d. flecainide. Warfarin was held perioperatively. He received 10 mg postoperatively today. A repeat PT/INR scheduled for the a.m. No history of coronary artery disease or congestive heart failure. Rheumatic fever as a child. No peripheral vascular disease. The patient is resting comfortably. Complains of left-sided knee discomfort. The is present at bedside. REVIEW OF SYSTEMS: Pertinent positives are noted above. Comprehensive 10-system review is otherwise negative. PAST MEDICAL HISTORY: 1. Paroxysmal atrial fibrillation status post PVI ablation x2. Treated in the past with sotalol, Tikosyn, and Multaq. 2. Hypertension. 3. Osteoarthritis. 4. Allergic rhinitis. 5. Actinic keratosis. 6. Degenerative joint disease. 7. Colon polyp. 8. RAFAEL, on CPAP. 9. Tinnitus. 10. Dizziness. 11. Carotid stenosis, asymptomatic. PAST SURGICAL HISTORY: 1. Total right knee replacement in August 2016. 2. PVI ablation with Dr. Sanders in 2007. 3. PVI ablation with Dr. Toledo in 2011. 4. Cardiac catheterization in 2007 demonstrating normal coronary arteries. 5. Colonoscopy. 6. Closed anal fistula with rectal surgery in 2008. 7. Elective external cardioversion in 2007. FAMILY HISTORY: Negative for premature CAD or sudden cardiac . SOCIAL HISTORY: Lifelong nonsmoker. Denies alcohol or illicit drug use. He is and lives with his . OCCUPATION: HVAC contractor. ALLERGIES: RIGO INHIBITORS AND ALLOPURINOL. OUTPATIENT MEDICATIONS: 1. Magnesium oxide 400 mg daily. 2. Flecainide 100 mg twice daily. 3. Warfarin 5 mg daily as directed by the anticoagulation clinic. 4. Glucosamine chondroitin. 5. Hyaluronic acid. 6. Diltiazem CD 240 mg at bedtime. 7. Flonase 2 sprays each nostril daily. 8. Losartan/HCTZ 100/25 daily. 9. Zyrtec daily. 10. Xopenex as needed. LABORATORY DATA: Dated 10/09/2016, white blood cell count 6.10, platelet count is 252, and hemoglobin 14.3. Sodium 135, potassium 3.7, BUN is 14, and creatinine 0.81. INR performed today is 1.1. PHYSICAL EXAMINATION: VITAL SIGNS: Temperature is 36.4 degrees centigrade, pulse 68 beats per minute and regular, respiratory rate 16 breaths per minute, blood pressure 146/74 and SaO2 is 99% on 2 liters. GENERAL: NAD, awake, alert and oriented x3. HEENT: Mucous membranes moist. No scleral icterus. Conjunctivae pink. NECK: Supple, no JVD, no HJR, and no carotid bruit. HEART: Regular with a normal S1 and S2. There is no murmur, rub, or gallop. LUNGS: Clear without rales, rhonchi, or wheeze. ABDOMEN: Soft and nontender. No rebound or guarding. Normal bowel sounds. EXTREMITIES: Warm and dry. There is positive Rigo wrap in the left lower extremity with a knee immobilizer. Bilateral sequential compressive devices are in place. There is a DENICE stocking on his right lower extremity. Posterior tibial pulses are palpable. There is no edema. NEUROLOGIC: Cranial nerves intact. No focal deficits. FINAL IMPRESSION: 1. A 61-year-old patient postoperative day 0 total knee replacement with a history of paroxysmal atrial fibrillation, status post PVI ablation x2 and maintained in sinus rhythm with flecainide 100 mg twice daily. 2. Subtherapeutic INR. 3. Hypertension -- borderline control and exacerbated by postoperative pain. PLAN AND RECOMMENDATIONS: The patient will continue flecainide 100 mg twice daily for rhythm control. His warfarin has been restarted, 10 mg given this evening. Agree with additional 10 mg tomorrow with repeat INR daily. Family at bedside was questioned regarding potential repeat PVI ablation in the future. The patient will be referred to Dr. Song for further advice in the outpatient setting. We will continue to follow during inpatient hospitalization. Thank you for allowing me to take part in the care of this patient. NAVI
--- NOTE | 2016-10-27 07:44 | PROGRESS NOTE ---
DATE: 10/27/2016 SUBJECTIVE: 61-year-old gentleman postop day 1 from a left knee replacement. He is doing pretty well. Pain is controlled. Denies any chest pain or shortness of breath. Not feeling dizzy or lightheaded. OBJECTIVE: VITAL SIGNS: Temperature 37.0. Vital signs stable. PHYSICAL EXAMINATION: GENERAL: Reveals a healthy, pleasant, middle-aged male. He is sitting up in bed, looks pretty comfortable. LUNGS: Clear to auscultation. HEART: Regular rate and rhythm. ABDOMEN: Soft, nontender, nondistended. EXTREMITIES: Grossly neurovascularly intact except as follows: Examination of the left lower extremity reveals the leg to be well aligned. Dressing is clean, dry, and intact. He is neurologically intact. He can dorsiflex and plantarflex his foot appropriately. LABORATORY DATA: Hemoglobin is 11.8. Hematocrit 36.0. Electrolytes are stable. INR 1.2. ASSESSMENT: 61-year-old gentleman postop day 1 from a left total knee replacement, doing pretty well. Pain is controlled. He is neurologically intact. PLAN: 1. DVT prophylaxis including thigh-high TEDs, SCDs, and back on Coumadin. We will give him a dose of 10 mg tonight and then back to his normal dose. 2. PT/OT. Weight bear as tolerated. Left total knee protocol. 3. Pain control, doing well with current pain regimen. 4. Disposition: Plan to discharge to home with home health once adequately recovered.
[2016-10-27] MEDS: CHECK SCOPOLAMINE PATCH PLACEMENT SCH ×2 (08:00→16:33)
--- NOTE | 2016-10-27 08:18 | Anesthesiology Progress Note ---
Anesthesia Post Op Note Date & Time Oct 27, 2016 at 08:17 Vital Signs Pain Intensity: 1.0 Vital Signs Past 12 Hours Date Time Temp Pulse Resp B/P (MAP) Pulse Ox O2 Delivery O2 Flow Rate FiO2 10/27/16 08:02 37.0 59 20 120/68 (85) 96 Room Air 10/27/16 03:16 37.0 68 16 114/65 (81) 96 Room Air 10/26/16 23:30 Room Air CPAP 10/26/16 23:22 36.8 69 16 126/63 (84) 96 Room Air Notes Mental Status: alert / awake / arousable, participated in evaluation Pt Amnestic to Procedure: Yes Nausea / Vomiting: adequately controlled Pain: adequately controlled Airway Patency, RR, SpO2: stable & adequate BP & HR: stable & adequate Hydration State: stable & adequate Neuraxial Anesthesia: sensory block resolved Anesthetic Complications: no major complications apparent
[2016-10-27] MEDS: TAPENTADOL ER 50 MG TABCR PO SCH ×2 (08:51→21:31)
[2016-10-27] MEDS: FLUTICASONE PROPIONATE NA SPR 16 GM BTL NAE SCH ×2 (08:51→21:34)
[2016-10-27] MEDS: PANTOprazole SOD 40 MG TAB PO SCH (08:52)
[2016-10-27] MEDS: DOCUSATE SODIUM 100 MG CAP PO SCH ×2 (08:52→21:32)
[2016-10-27] MEDS: OXYCODONE HCL IR 5 MG TAB (IMMEDIATE RELEASE) PO PRN ×2 (08:52→14:25)
[2016-10-27] MEDS: FERROUS GLUCONATE 324 MG TAB PO SCH ×3 (08:52→18:14)
[2016-10-27] MEDS: LOSARTAN/HCTZ 50-12.5 EA TAB PO SCH (08:53)
[2016-10-27] MEDS: FLECAINIDE ACETATE 100 MG TAB PO SCH ×2 (08:53→21:31)
[2016-10-27] MEDS: MULTIVITAMIN TAB PO SCH (08:53)
[2016-10-27] MEDS: LACTOBACILLUS ACIDOPHILUS (FLORANEX) TAB PO SCH (08:53)
--- NOTE | 2016-10-27 11:06 | PROGRESS NOTE ---
DATE: 10/27/2016 The patient seen and examined. Chart, laboratory studies reviewed. SUBJECTIVE: The patient feels he is recovering from surgery. Notes no sense of tachypalpitations. Notes no dizziness or lightheadedness. Heart rate and blood pressure have been well controlled since admission. OBJECTIVE: VITAL SIGNS: Heart rate is 59, blood pressure is 120/68. NECK: Thick. There is no jugular venous distention. LUNGS: Clear. CARDIOVASCULAR: Regular. There is no S3 gallop. There is no audible ectopy. ABDOMEN: Soft. EXTREMITIES: Reveal bandaged left lower knee and extremity. IMPRESSION: A 61-year-old male with history of paroxysmal atrial fibrillation on antiarrhythmic therapy with flecainide and diltiazem without arrhythmia break. PLAN: Continue current medications including resumption of oral anticoagulant. Outpatient arrangements will be made for followup. The patient to report new symptoms or complaints.
[2016-10-27] MEDS ORDERED: WARFARIN SOD 10 MG TAB PO ONE (16:00)
[2016-10-27] MEDS ORDERED: RXC5 PO (21:34)
[2016-10-27] MEDS ORDERED: MORP-157 PO (21:34)
[2016-10-27] MEDS ORDERED: ACET-24 PO (21:34)
--- NOTE | 2016-10-27 21:37 | Discharge Instructions ---
Discharge Instructions Date of Service Oct 27, 2016. Admission Reason for Admission: Left Knee Degenerative Joint Disease Discharge Discharge Diagnosis / Problem: Left Knee Replacement Discharge Goals Goal(s): Decrease discomfort, Improve function, Increase independence, Improve disease control, Therapeutic intervention Activity Recommendations Activity Limitations: per Instructions/Follow-up section . Instructions / Follow-Up Instructions / Follow-Up ACTIVITY RECOMMENDATIONS: Physical Therapy: * You will go to physical therapy three times each week for four to six weeks after your surgery in order to regain your knee range of motion and to retrain your knee to work properly. * It is just as important to make sure you are getting your knee perfectly straight as it is to regain your knee bend. * Taking a pain pill an hour before therapy can help you have a more productive and comfortable therapy session. Home Exercise: * You were shown a series of exercises (heel props, heel slides, etc.) in the hospital. Do these exercises three to four times each day including the exercises you were shown in physical therapy. Walking: * Get up and walk several times each day. For the first four weeks, try not to stand or walk for more than one hour at a time. If you do stand or walk for more than one hour, you will not hurt anything, but your knee and leg will likely swell. * As you feel comfortable, you may change from the walker or crutches to a cane and then to independent walking. MEDICATIONS: New Medicine: * You will likely be taking one or more of these medications: 1. MS Contin - A long-acting pain medication. Take 1 tablet twice a day for the first ten days to decrease your baseline level of pain. 2. Oxycodone - A quick and shorter-acting pain medication. Take one to two tablets every four to six hours to lessen your pain. 3. Aspirin - Thins your blood to lessen the chance of forming a blood clot. * The most common side effects of pain medicine and iron are nausea and constipation. If nausea or constipation is too much of a problem or if you have any questions about your new medicines or doses, call [facility] at . We will try to help you manage these issues. VERY IMPORTANT TO READ AND REVIEW" Pain: * The immediate post-operative period after knee replacement surgery is often quite painful. * You are given a prescription for pain medicine. You should take it, as directed, when you need it, especially before physical therapy and before going to bed. Pain that interferes with sleep is very common and can last several months. * You will likely need pain medicine for the first four to six weeks. It will not stop all of the pain. The pain will lessen and as you feel better, you may change to milder pain medicine such as Tylenol. * The most common side effects of pain medicine are nausea and constipation, so don't take more than you need. SPECIAL CARE INSTRUCTIONS: TEDs/Elastic Stockings: * The white elastic stockings help limit swelling and prevent blood clots from forming in your legs. The more you wear them, the more they work. * Wear them for six weeks after knee replacement surgery and four weeks after partial knee replacement. Prevention of Infection: * Take antibiotics one hour before any dental cleaning, dental work, urological procedure, gastrointestinal procedure or any invasive surgery in order to prevent your new joint from getting infected. * You may get the antibiotics from the doctor performing the procedure or you may call our office at before and we will call in a prescription to the pharmacy of your choice. Things to Watch For: * Drainage from the incision site that occurs more than one week after your surgery. * Severely increased knee/leg pain or swelling. * Increased redness at the incision site. * Fever above 102 degrees Fahrenheit. * Unusual chest pain or shortness of breath. * Unusual pain or burning with urination. Call [facility] at with any of the above problems or if you have any questions about your medicines or recovery. FOLLOW UP VISIT: Make an appointment to see your doctor for approximately two weeks after surgery for a progress check and staple removal by calling the office at . Current Hospital Diet Patient's current hospital diet: Regular Diet Discharge Diet Recommended Diet: Regular Diet Procedures Procedures Performed: Left Total Knee Arthroplasty Pending Studies Studies pending at discharge: no Medical Emergencies . Who to Call and When: Medical Emergencies: If at any time you feel your situation is an emergency, please call [phone] immediately. . Non-Emergent Contact Non-Emergency issues call your: Surgeon . "Provider Documentation" section prepared by Jaime Segovia. . VTE Core Measure Inpt VTE Proph given/why not?: Warfarin (Coumadin), T.E.D. Stockings, SCD's
[2016-10-27] MEDS: CETIRIZINE HCL 10 MG TAB PO SCH (22:01)
[2016-10-27] MEDS: SENNA 8.6 MG TAB PO SCH (22:02)
[2016-10-27] MEDS: MAGNESIUM OXIDE 400 MG TAB PO SCH (22:03)
[2016-10-27] MEDS: DILTIAZEM HCL 120 MG EXT REL CAP PO SCH (22:03)
[2016-10-28] MEDS: CHECK SCOPOLAMINE PATCH PLACEMENT SCH (01:00)
[2016-10-28] MEDS: ACETAMINOPHEN 500 MG TAB PO SCH (05:47)
[2016-10-28 06:27] VITALS: BP 135/67; PULSE 77; TEMP 37.4; O2SAT 96
[2016-10-28 07:28] LABS: INR 1.4 (0.9-1.1); PROTHROMBIN TIME (PATIENT) 15.3 SECONDS (9.0-12.0)
[2016-10-28] MEDS: PANTOprazole SOD 40 MG TAB PO SCH (07:46)
[2016-10-28] MEDS: LACTOBACILLUS ACIDOPHILUS (FLORANEX) TAB PO SCH (07:46)
[2016-10-28] MEDS: FERROUS GLUCONATE 324 MG TAB PO SCH (07:46)
[2016-10-28] MEDS: MULTIVITAMIN TAB PO SCH (07:46)
[2016-10-28] MEDS: LOSARTAN/HCTZ 50-12.5 EA TAB PO SCH (07:47)
[2016-10-28] MEDS: TAPENTADOL ER 50 MG TABCR PO SCH (07:47)
[2016-10-28] MEDS: DOCUSATE SODIUM 100 MG CAP PO SCH (07:47)
[2016-10-28] MEDS: FLUTICASONE PROPIONATE NA SPR 16 GM BTL NAE SCH (07:48)
[2016-10-28] MEDS: OXYCODONE HCL IR 5 MG TAB (IMMEDIATE RELEASE) PO PRN (07:54)
[2016-10-28] MEDS: FLECAINIDE ACETATE 100 MG TAB PO SCH (08:11)
--- NOTE | 2016-10-28 08:35 | PROGRESS NOTE ---
DATE: 10/28/2016 SUBJECTIVE: A 61-year-old gentleman, postop day 2 from a left knee replacement. He is doing pretty well. Knee just feels stiff. Moderate pain. No chest pain or shortness of breath. OBJECTIVE: VITAL SIGNS: Temperature 37.4. Vital signs stable. Examination of the left lower extremity reveals the dressing to be clean, dry and intact. No significant drainage. The leg is well aligned. He can dorsiflex and plantarflex his foot appropriately. He is neurologically intact. LABORATORY DATA: INR is 1.4. ASSESSMENT: A 61-year-old gentleman, postoperative day 2 from a left knee replacement, doing pretty well. Pain is reasonably well controlled. PLAN: 1. DVT prophylaxis including thigh-high TEDs, SCDs, and back on Coumadin. We will put him back on a standard dose. 2. PT/OT. Weightbearing as tolerated. Left total knee protocol. 3. Pain control, doing pretty well with current pain regimen. 4. Disposition: Plan to discharge to home with some home health later today.
[2016-10-28 09:26] VITALS: BP 135/67; PULSE 77; TEMP 37.4; O2SAT 96
[2016-10-28] MEDS ORDERED: WARFARIN SOD 5 MG TAB PO ONE (16:00)
--- NOTE | 2016-10-31 15:53 | DISCHARGE SUMMARY ---
ADMITTING PHYSICIAN AND SURGEON: Dr. Segovia. ADMITTING DIAGNOSIS: Left knee degenerative joint disease. SURGERY PERFORMED: Left total knee arthroplasty. SECONDARY DIAGNOSES: Include atrial fibrillation, hypertension, asthma, sleep apnea, and obesity. CONSULTS: Dr. Remi Ariza, postoperative cardiac care. HISTORY AND PHYSICAL EXAMINATION: Well documented in the patient's chart. HOSPITAL COURSE: The patient was admitted on 10/26/2016 and underwent total knee arthroplasty. He tolerated the procedure well. There were no complications. He was transferred to the PACU postoperatively and later to the orthopedic floor for further care. He was given Ancef for antibiotic prophylaxis, DENICE stockings, SCDs and Coumadin for DVT prophylaxis. Hemoglobin, hematocrit and vital signs were monitored during his hospital stay and remained stable. His INR was followed during his hospital stay and Coumadin dosed accordingly. He do not require any blood transfusions. He was followed by the cardiology service throughout his hospital stay. By postoperative day #2, he was tolerating a regular diet, pain was controlled with oral pain medicine. He was participating in physical therapy and had no signs or symptoms of deep vein thrombosis. On postoperative day #2, he was discharged home, set up with home health services, and given printed discharge instructions including new prescriptions for extra strength Tylenol, MS Contin and oxycodone. Continue his home medications including warfarin. Continue physical therapy, weightbearing as tolerated and DENICE stockings. Follow up in 10-12 days or sooner if there are any problems or concerns.
== END 2016-10-28 10:31 | disposition home health service (06) | DRG 470 ==
LOC: C.ACU 08:58 → C.3E 13:48 → ENRESERV 14:10
PROVIDERS: ADMIT Orthopaedic Surgery Sports Medicine; ATTEND Orthopaedic Surgery Sports Medicine
PROC: 0SRD0J9 Replacement of Left Knee Joint with Synthetic Substitute, Cemented, Open Approach (ICD-10-PCS; principal; 2016-10-26 11:25)
DX: M17.12 Unilateral primary osteoarthritis, left knee (principal); M21.162 Varus deformity, not elsewhere classified, left knee; M25.462 Effusion, left knee; R79.1 Abnormal coagulation profile; I11.0 Hypertensive heart disease with heart failure; I50.9 Heart failure, unspecified; I48.0 Paroxysmal atrial fibrillation; J45.909 Unspecified asthma, uncomplicated; G47.33 Obstructive sleep apnea (adult) (pediatric); E66.9 Obesity, unspecified; Z68.37 Body mass index [BMI] 37.0-37.9, adult; Z99.89 Dependence on other enabling machines and devices; Z96.651 Presence of right artificial knee joint; Z79.01 Long term (current) use of anticoagulants; Z79.891 Long term (current) use of opiate analgesic; Z79.899 Other long term (current) drug therapy

== ENCOUNTER 2017-06-18 16:02 | Inpatient (IN) | payer OTHER ==
[~2017-06-18] VITALS: Ht 198.1 cm; Wt 138.8 kg
[~2017-06-18 16:02] MED LIST changes: +ACET-24 PO; -ACETAMINOPHEN 500 MG TAB PO SCH; -ATROPINE SULFATE 0.1 MG/ML 5ML SYR IV PRN; -BUPIVACAINE 0.25% 30 ML VIAL ONE; -BUPIVACAINE 0.5 % 5 MG/1 ML PF 10ML VIAL ONE; -BUPIVACAINE LIPOSOME 266 MG, BUPIVACAINE/EPINEPHRINE INJ 50 ML, SODIUM CHLORIDE 0.9% PF... INFIL SCH; -CEFAZOLIN 3000 MG/65 ML D5W 65 ML IV SCH; -EpHEDrine SULFATE INJ 50 MG/ML AMP IV PRN; -FAMOTIDINE 20 MG TAB PO SCH; -FENTANYL CITRATE INJ 50 MCG/1 ML 2 ML VIAL ONE; -GABAPENTIN 300 MG CAP PO SCH; -LACTATED RINGER'S 1000ML 1,000 ML IV SCH; -LACTATED RINGER'S 1000ML IV SCH; -METOCLOPRAMIDE HCL 10 MG TAB PO SCH; -MIDAZOLAM HCL 1 MG/ML 2ML VIAL ONE; -ONDANSETRON INJ 2 MG/ML 2 ML VIAL IV PRN; +RXC5 PO; -SCOPOLAMINE 1.5 MG TDSY TD SCH; -TRANEXAMIC ACID INJ 1,000 MG in SODIUM CHLORIDE 0.9% 100ML 100 ML IV SCH
[2017-06-18] MEDS ORDERED: SODIUM CHLORIDE 0.9% 500ML 500 ML IV STA (16:59)
[2017-06-18] MEDS ORDERED: DILTIAZEM HCL 5 MG/ML 5 ML VIAL IV STA ×2 (17:00→19:11)
[2017-06-18] MEDS ORDERED: OMEG10007 PO (17:37)
[2017-06-18] MEDS ORDERED: WARF10TA4 PO (17:37)
[2017-06-18] MEDS ORDERED: WARF5TAB7 PO (17:37)
[2017-06-18] MEDS ORDERED: XPNINS125 PO (17:37)
--- NOTE | 2017-06-18 17:54 | DIAGNOSTIC IMAGING REPORT ---
CHEST ONE VIEW PORTABLE HISTORY: 61 years-old Male EVALUATE ALTERED MENTAL STATUS/WEAKNESS acute weakness with altered mental status COMPARISON: Chest radiograph 07/19/2016 TECHNIQUE: Portable AP view of the chest FINDINGS: Cardiac silhouette is again mildly enlarged, unchanged. Atherosclerosis of the aorta. There is no pneumothorax, pleural effusion, focal airspace consolidation or overt pulmonary edema. IMPRESSION: Cardiomegaly without acute process. The above report was generated using voice recognition software. It may contain grammatical, syntax or spelling errors. Electronically signed by: Robert Carter M.D. 06/18/2017 5:52 PM Dictated Date/Time: 06/18/2017 5:51 PM
[2017-06-18 17:59] LABS: BASO % 0.3 %; BASO ABS # 0.02 K/uL (0-0.2); EOS % 3.7 %; EOS ABS # 0.24 K/uL (0-0.5); IG# 0.01 K/uL (0.00-0.02); LYMPH % 25.9 %; LYMPH ABS # 1.69 K/uL (1.2-3.4); MEAN CELL VOLUME 93.5 fL (80-100); MEAN CORPUSCULAR HEMOGLOBIN 32.6 pg (25-34); MEAN CORPUSCULAR HGB CONC 34.9 g/dl (32-36); MEAN PLATELET VOLUME 9.6 fL (7.4-10.4); MONO ABS # 0.72 K/uL (0.11-0.59); NEUT % 58.9 %; NEUT ABS # 3.84 K/uL (1.4-6.5); PLATELET COUNT 184 K/uL (130-400); RED CELL DISTRIBUTION WIDTH CV 13.3 % (11.5-14.5); RED CELL DISTRIBUTION WIDTH SD 45.4 fL (36.4-46.3); WHITE BLOOD COUNT 6.52 K/uL (4.8-10.8)
[2017-06-18 18:02] LABS: INR 2.4 (0.9-1.1); PTT PATIENT 34.9 SECONDS (21.0-31.0)
[2017-06-18 18:25] LABS: ALBUMIN 3.5 gm/dl (3.4-5.0); ALT/SGPT 26 U/L (12-78); AST/SGOT 18 U/L (15-37); BLOOD UREA NITROGEN 15 mg/dl (7-18); CALCIUM 8.3 mg/dl (8.5-10.1); CARBON DIOXIDE 26 mmol/L (21-32); CREATININE 0.84 mg/dl (0.60-1.40); GLUCOSE 99 mg/dl (70-99); POTASSIUM 3.5 mmol/L (3.5-5.1); SODIUM 133 mmol/L (136-145)
[2017-06-18 18:37] LABS: ALKALINE PHOSPHATASE 84 U/L (45-117); TOTAL PROTEIN 7.6 gm/dl (6.4-8.2)
[2017-06-18] MEDS ORDERED: DILTIAZEM HCL 5 MG/ML 5 ML VIAL ONE (19:12)
[2017-06-18] MEDS ORDERED: POTASSIUM CHLORIDE 10 MEQ TABCR PO STA (19:26)
--- NOTE | 2017-06-18 19:27 | History and Physical ---
History & Physical Date & Time of Service: Jun 18, 2017 at 19:27 Chief Complaint: A FIB Primary Care Physician: Jarrett Doan D.O. History of Present Illness Source: patient, family Patient is a 61-year-old patient with past medical history of paroxysmal fibrillation S/P pulmonary vein isolation ablation in 2007 and 2011, hypertension, obstructive sleep apnea, obesity, asthma, tachycardia induced cardiomyopathy and other problems presents with history of intermittent dizziness, "I felt weird", mild headache, increased heart rate noted on his Fitbit which started over weekend. Patient took an extra dose of flecainide 100 mg over the weekend and today as well to control his heart rate which was of no help. He also noted to have mild transient chest discomfort yesterday when his heart rate was high. His heart rate was over 120s today and so he came to ED. Denies any history of SOB, orthopnea, PND, pedal edema, diaphoresis, cough, wheezing, fever, chills, LOC, weakness, numbness, change in vision, nausea, vomiting, abdominal pain, change in appetite, dysuria, recent travel, sick contact, recent change in medications. He follows with for atrial fibrillation. Past Medical/Surgical History Medical Problems: (1) Allergic rhinitis (2) Asthma, Unspecified (3) Atrial fibrillation (4) Atrial fibrillation status post cardioversion (5) Atrial fibrillation with rapid ventricular response (6) Atrial fibrillation with RVR (7) Atrial fibrillation with RVR (8) Atrial fibrillation with RVR (9) Benign hypertension (10) Benign neoplasm of colon (11) Chronic allergic conjunctivitis (12) Congestive Heart Failure Nos (13) History of sustained ventricular tachycardia (14) Hyperlipidemia Nec/Nos (15) Hypertension Nos (16) Intermittent asthma (17) Left Knee DJD (18) Mitral Valve Disorder (19) Obstructive sleep apnea syndrome (20) Osteoarthritis (21) Paroxysmal atrial flutter (22) Rapid atrial fibrillation (23) Right Knee DJD Family History Heart disease Father: Coronary artery disease Social History Smoking Status: Never Smoker Alcohol Use: socially Drug Use: none Marital Status: Housing status: lives with family Occupational Status: employed Immunizations History of Influenza Vaccine: Yes History of Tetanus Vaccine?: Yes Tetanus Immunization Date: Aug 10, 2007 History of Pneumococcal: Yes History of Hepatitis B Vaccine: No Allergies Coded Allergies: Allopurinol (Verified Allergy, Unknown, hives, 06/18/17) PADMINI Inhibitors (Verified Adverse Reaction, Unknown, cough, 06/18/17) Home Medications Scheduled Cetirizine (Zyrtec), 10 MG PO HS Lavjgslq-Dgjrlmdihtp-Hmxcdvwta (Hyaluronic Acid), 1 CAP PO BID Diltiazem Hcl Extended Release (Diltiazem Hcl Er), 240 MG PO QPM Fish Oil (Oaks-3), 1 CAP PO DAILY Flecainide (Tambocor), 100 MG PO BID Fluticasone Propionate (Fluticasone Propionate), 2 SPRAYS JAMAL BID Losartan Potassium & Hydrochlo (Hyzaar), 1 TAB PO QAM Magnesium Oxide (Magnesium), 400 MG PO QPM Turmeric (Curcuma Longa) (Turmeric), 1 CAP PO QAM Warfarin Sod (Jantoven), 10 MG PO 3XWK Warfarin Sod (Jantoven), 5 MG PO 4XWK Scheduled PRN Albuterol Hfa (Ventolin Hfa), 2 PUFFS INH QID PRN for SOB/Wheezing Levalbuterol (Levalbuterol HCl), 1 INHA PO QID PRN for Shortness of Breath Review of Systems See HPI for pertinent positives & negatives. A total of 10 systems reviewed and were otherwise negative. Physical Exam Vital Signs Date Time Temp Pulse Resp B/P (MAP) Pulse Ox O2 Delivery O2 Flow Rate FiO2 06/18/17 19:19 104 18 127/87 98 Room Air 06/18/17 19:00 110 18 136/100 97 Room Air 06/18/17 18:01 102 18 125/84 98 Room Air 06/18/17 17:28 110 06/18/17 17:20 98 Room Air 06/18/17 16:10 36.7 94 18 127/87 95 Room Air General Appearance: WD/WN, no apparent distress Head: normocephalic, atraumatic Eyes: normal inspection, PERRL, EOMI, sclerae normal ENT: normal ENT inspection, hearing grossly normal Neck: supple, trachea midline Respiratory/Chest: chest non-tender, lungs clear, normal breath sounds, no respiratory distress, no accessory muscle use Cardiovascular: no edema, no murmur, + tachycardia, + irregularly irregular Abdomen/GI: normal bowel sounds, non tender, soft Back: normal inspection Extremities/Musculoskelatal: normal inspection, no pedal edema Neurologic/Psych: skip miner blasting II-XII nml as tested, no motor/sensory deficits, alert, normal mood/affect, oriented x 3 Skin: normal color, warm/dry Diagnostics Laboratory Results Results Past 24 Hours Test 06/18/17 00:00 06/18/17 17:30 Range/Units Urine Color YELLOW Urine Appearance CLEAR CLEAR Urine pH 6.0 4.5-7.5 Urine Specific [place] 1.011 1.000-1.030 Urine Protein NEG NEG Urine Glucose (UA) NEG NEG Urine Ketones NEG NEG Urine Occult Blood NEG NEG Urine Nitrite NEG NEG Urine Bilirubin NEG NEG Urine Urobilinogen NEG NEG Urine Leukocyte Esterase NEG NEG White Blood Count 6.52 4.8-10.8 K/uL Red Blood Count 4.60 4.7-6.1 M/uL Hemoglobin 15.0 14.0-18.0 g/dL Hematocrit 43.0 42-52 % Mean Corpuscular Volume 93.5 80-100 fL Mean Corpuscular Hemoglobin 32.6 25-34 pg Mean Corpuscular Hemoglobin Concent 34.9 32-36 g/dl Platelet Count 184 130-400 K/uL Mean Platelet Volume 9.6 7.4-10.4 fL Neutrophils (%) (Auto) 58.9 % Lymphocytes (%) (Auto) 25.9 % Monocytes (%) (Auto) 11.0 % Eosinophils (%) (Auto) 3.7 % Basophils (%) (Auto) 0.3 % Neutrophils # (Auto) 3.84 1.4-6.5 K/uL Lymphocytes # (Auto) 1.69 1.2-3.4 K/uL Monocytes # (Auto) 0.72 0.11-0.59 K/uL Eosinophils # (Auto) 0.24 0-0.5 K/uL Basophils # (Auto) 0.02 0-0.2 K/uL RDW Standard Deviation 45.4 36.4-46.3 fL RDW Coefficient of Variation 13.3 11.5-14.5 % Immature Granulocyte % (Auto) 0.2 % Immature Granulocyte # (Auto) 0.01 0.00-0.02 K/uL Prothrombin Time 24.8 9.0-12.0 SECONDS Prothromb Time International Ratio 2.4 0.9-1.1 Activated Partial Thromboplast Time 34.9 21.0-31.0 SECONDS Partial Thromboplastin Ratio 1.3 Sodium Level 133 136-145 mmol/L Potassium Level 3.5 3.5-5.1 mmol/L Chloride Level 101 98-107 mmol/L Carbon Dioxide Level 26 21-32 mmol/L Anion Gap 6.0 3-11 mmol/L Blood Urea Nitrogen 15 7-18 mg/dl Creatinine 0.84 0.60-1.40 mg/dl Est Creatinine Clear Calc Drug Dose 142.9 ml/min Estimated GFR () 108.8 Estimated GFR (Non- 93.8 BUN/Creatinine Ratio 17.8 10-20 Random Glucose 99 70-99 mg/dl Calcium Level 8.3 8.5-10.1 mg/dl Magnesium Level 2.2 1.8-2.4 mg/dl Total Bilirubin 1.1 0.2-1 mg/dl Direct Bilirubin 0.2 0-0.2 mg/dl Aspartate Amino Transf (AST/SGOT) 18 15-37 U/L Alanine Aminotransferase (ALT/SGPT) 26 12-78 U/L Alkaline Phosphatase 84 45-117 U/L Troponin I < 0.015 0-0.045 ng/ml Total Protein 7.6 6.4-8.2 gm/dl Albumin 3.5 3.4-5.0 gm/dl Thyroid Stimulating Hormone (TSH) 1.610 0.300-4.500 uIu/ml Diagnostic Radiology CXR: Cardiomegaly without acute process EKG EKG: atrial flutter, Incomplete LBBB Impression Assessment and Plan Atrial Flutter RVR: H/O Paroxysmal Atrial Fibrillation H/O Tachycardia induced cardiomyopathy S/P PVI X2 in 2007 and 2011 Check ECHO TSH: normal CXR:No acute process Monitor electrolytes Patient was on Flecainide 50mg BID and Diltiazem XT 240mg daily (Off note he was on 100mg BID previously but reduced to 50mg BID to minimize side effects)W Increase Flecainide to 100mg BID Change Cardizem to 60mg Q6H Appreciate Cardiology Input Planned for possible cardioversion tomorrow NPO after midnight INR: 2.4 Continue Coumadin, Monitor INR No signs of volume overload Hypertension: Stable continue home meds RAFAEL: CPAP QHS Asthma: Well controlled No signs of exacerbation Nebs PRN DVT Px: on Coumadin INR:2.4 Code Status: Full Code Disposition: Monitor in Telemetry Resuscitation Status VTE Prophylaxis Will order VTE Prophylaxis: Yes
--- NOTE | 2017-06-18 19:42 | EMERGENCY ROOM VISIT NOTE ---
History Report prepared by Joseph: Bertha Pereyra Under the Supervision of: Dr. Napoleon Rosario D.O. First contact with patient: 16:45 Chief Complaint: CARDIAC ASSESSMENT Stated Complaint: A FIB Nursing Triage Summary: patient states I keep going in and out of afib. my heart rate was in the 120's at home. History of Present Illness The patient is a 61 year old male who presents to the Emergency Room with complaints of persistent atrial fibrillation starting this weekend. The patient has a history of atrial fibrillation, but has not been in atrial fibrillation for 1 year. He has been in contact with his dehydrogenation converter operator. He has taken extra doses of Flecainide as recommended, but his atrial fibrillation has not resolved. His heart rate was over 120 today so he was sent to the ED. He has felt lightheaded. He had some chest pain last night. He denies any SOB, nausea, vomiting, or increased leg swelling. His INR was around 2.4 last week. He has been eating and drinking well. He denies any recent illness. Source of History: patient Onset: this Position: other (heart) Quality: other (atrial fibrillation) Timing: other (persistent) Associated Symptoms: + chest pain, No SOB, No nausea, No vomiting Note: Pt reports tachycardia, lightheadedness. Review of Systems See HPI for pertinent positives & negatives. A total of 10 systems reviewed and were otherwise negative. Past Medical & Surgical Medical Problems: (1) Allergic rhinitis (2) Asthma, Unspecified (3) Atrial fibrillation (4) Atrial fibrillation with rapid ventricular response (5) Benign hypertension (6) Benign neoplasm of colon (7) Chronic allergic conjunctivitis (8) Congestive Heart Failure Nos (9) History of sustained ventricular tachycardia (10) Hyperlipidemia Nec/Nos (11) Hypertension Nos (12) Intermittent asthma (13) Left Knee DJD (14) Mitral Valve Disorder (15) Osteoarthritis (16) Right Knee DJD Family History Heart disease Social History Smoking Status: Never Smoker Alcohol Use: occasionally Drug Use: none Marital Status: Housing Status: lives with family Occupation Status: employed Current/Historical Medications Scheduled Cetirizine (Zyrtec), 10 MG PO HS Jnhjurqz-Mmfdsxbdfrn-Bmojlvpru (Hyaluronic Acid), 1 CAP PO BID Diltiazem Hcl Extended Release (Diltiazem Hcl Er), 240 MG PO QPM Fish Oil ([place]-3), 1 CAP PO DAILY Flecainide (Tambocor), 100 MG PO BID Fluticasone Propionate (Fluticasone Propionate), 2 SPRAYS JAMAL BID Losartan Potassium & Hydrochlo (Hyzaar), 1 TAB PO QAM Magnesium Oxide (Magnesium), 400 MG PO QPM Turmeric (Curcuma Longa) (Turmeric), 1 CAP PO QAM Warfarin Sod (Jantoven), 10 MG PO 3XWK Warfarin Sod (Jantoven), 5 MG PO 4XWK Scheduled PRN Albuterol Hfa (Ventolin Hfa), 2 PUFFS INH QID PRN for SOB/Wheezing Levalbuterol (Levalbuterol HCl), 1 INHA PO QID PRN for Shortness of Breath Allergies Coded Allergies: Allopurinol (Verified Allergy, Unknown, hives, 06/18/17) PADMINI Inhibitors (Verified Adverse Reaction, Unknown, cough, 06/18/17) Physical Exam Vital Signs Date Time Temp Pulse Resp B/P (MAP) Pulse Ox O2 Delivery O2 Flow Rate FiO2 06/18/17 19:19 104 18 127/87 98 Room Air 06/18/17 19:00 110 18 136/100 97 Room Air 06/18/17 18:01 102 18 125/84 98 Room Air 06/18/17 17:28 110 06/18/17 17:20 98 Room Air 06/18/17 16:10 36.7 94 18 127/87 95 Room Air Physical Exam GENERAL: Patient is awake, alert, and in no acute distress. Patient is resting comfortably and showing no signs of anxiety EYES: The conjunctivae are clear. The pupils are round and reactive. EARS, NOSE, MOUTH AND THROAT: The nose is without any evidence of any deformity. Mucous membranes are moist tongue is midline NECK: The neck is nontender and supple. RESPIRATORY: Normal respiratory effort is noted there is no evidence of wheezing rhonchi or rales CARDIOVASCULAR: Heart sounds irregular and tachycardic to auscultation. No definite murmur noted. GASTROINTESTINAL: The abdomen is soft. Bowel sounds are present in all quadrants. Abdomen is nontender MUSCULOSKELETAL/EXTREMITIES: There is no evidence of gross deformity full range of motion is noted in the hips and shoulders SKIN: There is trace pedal edema bilaterally. NEUROLOGIC: Patient is awake alert and oriented x3 Medical Decision & Procedures ER Provider Diagnostic Interpretation: X-ray results as stated below per interpretation by me and the radiologist. CHEST ONE VIEW PORTABLE HISTORY: 61 years-old Male EVALUATE ALTERED MENTAL STATUS/WEAKNESS acute weakness with altered mental status COMPARISON: Chest radiograph 07/19/2016 TECHNIQUE: Portable AP view of the chest FINDINGS: Cardiac silhouette is again mildly enlarged, unchanged. Atherosclerosis of the aorta. There is no pneumothorax, pleural effusion, focal airspace consolidation or overt pulmonary edema. IMPRESSION: Cardiomegaly without acute process. The above report was generated using voice recognition software. It may contain grammatical, syntax or spelling errors. Electronically signed by: Robert Carter M.D. 06/18/2017 5:52 PM Dictated Date/Time: 06/18/2017 5:51 PM Laboratory Results 06/18/17 17:30 Red Blood Count 4.60, Mean Corpuscular Volume 93.5, Mean Corpuscular Hemoglobin 32.6, Mean Corpuscular Hemoglobin Concent 34.9, Mean Platelet Volume 9.6, Neutrophils (%) (Auto) 58.9, Lymphocytes (%) (Auto) 25.9, Monocytes (%) (Auto) 11.0, Eosinophils (%) (Auto) 3.7, Basophils (%) (Auto) 0.3, Neutrophils # (Auto ) 3.84, Lymphocytes # (Auto) 1.69, Monocytes # (Auto) 0.72, Eosinophils # (Auto ) 0.24, Basophils # (Auto) 0.02 06/18/17 17:30 Test 06/18/17 00:00 06/18/17 17:30 Urine Color YELLOW Urine Appearance CLEAR (CLEAR) Urine pH 6.0 (4.5-7.5) Urine Specific [place] 1.011 (1.000-1.030) Urine Protein NEG (NEG) Urine Glucose (UA) NEG (NEG) Urine Ketones NEG (NEG) Urine Occult Blood NEG (NEG) Urine Nitrite NEG (NEG) Urine Bilirubin NEG (NEG) Urine Urobilinogen NEG (NEG) Urine Leukocyte Esterase NEG (NEG) White Blood Count 6.52 K/uL (4.8-10.8) Red Blood Count 4.60 M/uL (4.7-6.1) Hemoglobin 15.0 g/dL (14.0-18.0) Hematocrit 43.0 % (42-52) Mean Corpuscular Volume 93.5 fL (80-100) Mean Corpuscular Hemoglobin 32.6 pg (25-34) Mean Corpuscular Hemoglobin Concent 34.9 g/dl (32-36) Platelet Count 184 K/uL (130-400) Mean Platelet Volume 9.6 fL (7.4-10.4) Neutrophils (%) (Auto) 58.9 % Lymphocytes (%) (Auto) 25.9 % Monocytes (%) (Auto) 11.0 % Eosinophils (%) (Auto) 3.7 % Basophils (%) (Auto) 0.3 % Neutrophils # (Auto) 3.84 K/uL (1.4-6.5) Lymphocytes # (Auto) 1.69 K/uL (1.2-3.4) Monocytes # (Auto) 0.72 K/uL (0.11-0.59) Eosinophils # (Auto) 0.24 K/uL (0-0.5) Basophils # (Auto) 0.02 K/uL (0-0.2) RDW Standard Deviation 45.4 fL (36.4-46.3) RDW Coefficient of Variation 13.3 % (11.5-14.5) Immature Granulocyte % (Auto) 0.2 % Immature Granulocyte # (Auto) 0.01 K/uL (0.00-0.02) Prothrombin Time 24.8 SECONDS (9.0-12.0) Prothromb Time International Ratio 2.4 (0.9-1.1) Activated Partial Thromboplast Time 34.9 SECONDS (21.0-31.0) Partial Thromboplastin Ratio 1.3 Anion Gap 6.0 mmol/L (3-11) Est Creatinine Clear Calc Drug Dose 142.9 ml/min Estimated GFR () 108.8 Estimated GFR (Non- 93.8 BUN/Creatinine Ratio 17.8 (10-20) Calcium Level 8.3 mg/dl (8.5-10.1) Magnesium Level 2.2 mg/dl (1.8-2.4) Total Bilirubin 1.1 mg/dl (0.2-1) Direct Bilirubin 0.2 mg/dl (0-0.2) Aspartate Amino Transf (AST/SGOT) 18 U/L (15-37) Alanine Aminotransferase (ALT/SGPT) 26 U/L (12-78) Alkaline Phosphatase 84 U/L (45-117) Troponin I < 0.015 ng/ml (0-0.045) Total Protein 7.6 gm/dl (6.4-8.2) Albumin 3.5 gm/dl (3.4-5.0) Thyroid Stimulating Hormone (TSH) 1.610 uIu/ml (0.300-4.500) Laboratory results per my review. Medications Administered Medications (Trade) Dose Ordered Sig/Shine Route Start Time Stop Time Status Last Admin Dose Admin Sodium Chloride 500 ml @ 999 mls/hr Q31M STAT IV 06/18/17 16:59 06/18/17 17:29 DC 06/18/17 17:57 999 MLS/HR Diltiazem HCl (Cardizem Inj) 10 mg NOW STAT IV 06/18/17 17:00 06/18/17 17:01 DC 06/18/17 18:00 10 MG Diltiazem HCl (Cardizem Inj) 20 mg NOW STAT IV 06/18/17 19:11 06/18/17 19:12 DC 06/18/17 19:11 20 MG Potassium Chloride (Klor-Con M10) 40 meq NOW STAT PO 06/18/17 19:26 06/18/17 19:31 DC 06/18/17 19:53 40 MEQ ECG Per My Interpretation Indication: palpitations Rate (beats per minute): 104 Rhythm: atrial flutter Findings: other (no PVC, no acute ST segment abnormality) Comparison ECG Date: 05-Jun-2016 Change: Atrial flutter has replaced normal sinus rhythm. ED Course 1655: The patient was evaluated in room B6. A complete history and physical examination were performed. 1658: NSS 500 ml @ 999 mls/hr IV. 1700: Diltiazem HCl 10 mg IV. 1824: I reevaluated the patient. I updated him on the results. 1907: I discussed the patient's case with Dr. Hartman, [facility] cardiology. He recommends the patient stay in the hospital. 1910: Diltiazem HCl 20 mg IV. 1911: Upon reevaluation, the patient is resting comfortably. I discussed results and treatment plan with him. He verbalizes agreement and understanding. The patient will be evaluated for further management and care. 1918: I [facility] the [facility] The patient will be evaluated for further management. Medical Decision Prior records/ancillary studies reviewed. Triage Nursing notes reviewed. Additional history obtained from significant other. The patient's history was concerning for palpitations. Differential diagnosis: Etiologies such as premature contractions, electrolyte abnormality, cardiac dysrhythmia, thyroid dysfunction, pulmonary embolism, infection, gastrointestinal, as well as others were entertained. The patient is a 61-year-old male who has a history of paroxysmal atrial fibrillation who presented to the emergency department for an evaluation of dizziness and irregular heartbeat. The patient has a history of atrial fibrillation and has had cardiac ablation 2. He started feeling symptoms over the course of the weekend. He called his primary dehydrogenation converter operator today and had an extra dose of his flecainide. He took 50 mg this morning which is his routine dose but then took 100 mg around 1 PM. He continued to have symptoms and was instructed to come to the emergency department by his primary dehydrogenation converter operator group. The patient was treated with IV fluids and IV Cardizem. On subsequent reevaluation he was somewhat improved. I discussed his case with the on-call [facility] dehydrogenation converter operator. Given the patient's medication regimen they felt he would be better managed as an inpatient with consideration given to cardioversion. For this reason I discussed his case with the on-call [facility] hospitalist group. They have agreed to evaluate the patient in the emergency department for further management and disposition. Medication Reconcilliation Current Medication List: was personally reviewed by me Blood Pressure Screening Patient's blood pressure: Normal blood pressure Blood pressure disposition: Did not require urgent referral Consults Time Called: 1857 Consulting Physician: Dr. Hartman [facility] cardiology Returned Call: 1907 I discussed the patient's case with him. He recommends the patient stay in the hospital. Additional Consults: Time Called: 1914 Consulted Phys[facility] Return[facility] Call: 1918 Additional Comments: I discussed the patient's case with him. The patient will be evaluated for further management. Impression Primary Impression: Rapid atrial fibrillation Additional Impressions: Dizziness Palpitations Scribe Attestation The scribe's documentation has been prepared under my direction and personally reviewed by me in its entirety. I confirm that the note above accurately reflects all work, treatment, procedures, and medical decision making performed by me. Departure Information Dispostion Being Evaluated By Hospitalist Referrals Jarrett Doan D.O. (PCP) Patient Instructions My [facility] Problem Qualifiers
[2017-06-18] MEDS ORDERED: NITROGLYCERIN 0.4 MG SL PER TAB CHARGE SL PRN (21:00)
[2017-06-18] MEDS ORDERED: ACETAMINOPHEN 325 MG TAB PO PRN (21:00)
[2017-06-18] MEDS ORDERED: ONDANSETRON INJ 2 MG/ML 2 ML VIAL IV PRN (21:00)
[2017-06-18] MEDS ORDERED: LEVALBUTEROL 0.63MG/3 ML NEB INH PRN (21:15)
[2017-06-18 21:21] VITALS: Ht 198.1 cm; Wt 138.8 kg
[2017-06-18] MEDS ORDERED: WARFARIN SOD 5 MG TAB PO STA (21:28)
[2017-06-18 22:15] VITALS: BP 152/97; PULSE 124; TEMP 36.7; O2SAT 96
[2017-06-18 23:03] VITALS: BP 151/94; PULSE 116; TEMP 36.9; O2SAT 96
[2017-06-18] MEDS: FLECAINIDE ACETATE 100 MG TAB PO SCH (23:31)
[2017-06-18] MEDS: DILTIAZEM HCL 60 MG TAB PO SCH (23:31)
[2017-06-18] MEDS: NSS + 20MEQ KCL 1000ML 1,000 ML IV SCH (23:32)
[2017-06-19] VITALS (9 sets, daily range): BP systolic 102–154; BP diastolic 67–100; PULSE 78–118; TEMP 36.5–36.9; O2SAT 94–100
[2017-06-19] MEDS: DILTIAZEM HCL 60 MG TAB PO SCH ×2 (05:21→12:41)
[2017-06-19] MEDS: FLECAINIDE ACETATE 100 MG TAB PO SCH (07:40)
[2017-06-19 07:52] LABS: HEMATOCRIT 42.8 % (42-52); HEMOGLOBIN 14.9 g/dL (14.0-18.0); MEAN CELL VOLUME 93.9 fL (80-100); MEAN CORPUSCULAR HEMOGLOBIN 32.7 pg (25-34); MEAN CORPUSCULAR HGB CONC 34.8 g/dl (32-36); MEAN PLATELET VOLUME 9.4 fL (7.4-10.4); PLATELET COUNT 180 K/uL (130-400); RED CELL DISTRIBUTION WIDTH CV 13.3 % (11.5-14.5); RED CELL DISTRIBUTION WIDTH SD 45.8 fL (36.4-46.3); WHITE BLOOD COUNT 5.25 K/uL (4.8-10.8)
[2017-06-19 07:58] LABS: INR 2.2 (0.9-1.1)
[2017-06-19 08:31] LABS: BLOOD UREA NITROGEN 11 mg/dl (7-18); CALCIUM 8.7 mg/dl (8.5-10.1); CARBON DIOXIDE 24 mmol/L (21-32); CREATININE 0.78 mg/dl (0.60-1.40); GLUCOSE 95 mg/dl (70-99); POTASSIUM 4.1 mmol/L (3.5-5.1); SODIUM 137 mmol/L (136-145)
[2017-06-19] MEDS ORDERED: LOSARTAN/HCTZ 50-12.5 EA TAB PO SCH (09:00)
--- NOTE | 2017-06-19 09:42 | Cardiology Consultation ---
Cardiology Consultation Date of Consultation: Jun 19, 2017 History of Present Illness Patient is a 61 year old male seen in cardiology consultation per the request of Dr Mclaughlin for the evaluation of atrial flutter with rapid ventricular rate. The patient is well-known to the undersigned. He typically follows with Dr. Ariza of our practice and a general cardiology capacity and Dr. Deric Song of [facility] electrophysiology. His most recent electrophysiology follow-up visit was last month in May,. His long-standing history of recurrent atrial fibrillation. His most recent event of prolonged arrhythmia took place over a year ago and had spontaneously converted back to sinus rhythm in the emergency department. He has rare brief episodes in the interim. He states that several days ago he was feeling well and was collecting firewood for his camp in 70-80 temperatures. He felt well during the physical labor. His fitness tracking wristwatch had revealed a heart rate in the 90 bpm range during his exercise at that time. A day later on Sunday, he noted sensation of an irregular heartbeat and his heart rate was increased on his fitness watch into the range of 120 bpm. Sunday night he had a very brief episode of associated chest discomfort. He took an extra dose of flecainide having previously been counseled that he could take a 200 mg bolus as needed for breakthrough atrial fibrillation at home. This did not help. He presented to the emergency room last night was found to have atrial flutter with rapid ventricular response on EKG. The admitting physician had discussed the case with Dr. Harmtan who is on-call for our practice. The patient has typically been on flecainide 50 mg twice daily as his standing dose. Increase dose of 100 mg was administered last night and again this morning but he remains in atrial flutter. His electrolytes are stable, and his most recent INR is 2.2. Past Medical/Surgical History Problem List: Medical Problems: (1) Allergic rhinitis (2) Asthma, Unspecified (3) Atrial fibrillation (4) Atrial fibrillation with rapid ventricular response (5) Benign hypertension (6) Benign neoplasm of colon (7) Chronic allergic conjunctivitis (8) Congestive Heart Failure Nos (9) History of sustained ventricular tachycardia (10) Hyperlipidemia Nec/Nos (11) Hypertension Nos (12) Intermittent asthma (13) Left Knee DJD (14) Mitral Valve Disorder (15) Osteoarthritis (16) Right Knee DJD History PAST MEDICAL HISTORY: 1. Paroxysmal atrial fibrillation status post PVI ablation x2. Treated in the past with sotalol, Tikosyn, and Multaq. 2. Hypertension. 3. Osteoarthritis. 4. Allergic rhinitis. 5. Actinic keratosis. 6. Degenerative joint disease. 7. Colon polyp. 8. RAFAEL, on CPAP. 9. Tinnitus. 10. Dizziness. 11. Carotid stenosis, asymptomatic. PAST SURGICAL HISTORY: 1. Total right knee replacement in August 2016, left total knee replacement 2. PVI ablation with Dr. Sanders in 2007. 3. PVI ablation with Dr. Toledo in 2011. 4. Cardiac catheterization in 2007 demonstrating normal coronary arteries. 5. Colonoscopy. 6. Closed anal fistula with rectal surgery in 2008. 7. Elective external cardioversion in 2007. FAMILY HISTORY: Negative for premature CAD or sudden cardiac . SOCIAL HISTORY: Lifelong nonsmoker. Denies alcohol or illicit drug use. He is and lives with his . OCCUPATION: HVAC contractor. Review Of Systems A 10 point review of systems is reviewed and is negative with exception of that above Allergies Coded Allergies: Allopurinol (Verified Allergy, Unknown, hives, 06/18/17) PADMINI Inhibitors (Verified Adverse Reaction, Unknown, cough, 06/18/17) Medications Reported Home Medications Medications Dose Route/Sig Max Daily Dose Days Date Category Dose Instructions Jantoven (Warfarin Sodium) 5 Mg Tab 5 Mg PO 4XWK 06/18/17 Reported Sunday AND SUNDAY Jantoven (Warfarin Sodium) 10 Mg Tab 10 Mg PO 3XWK 06/18/17 Reported Sunday AND SUNDAY Levalbuterol HCl (Levalbuterol) 1.25 Mg/3 Ml Nebu 1 Inha PO QID PRN 06/18/17 Reported [place]-3 (Fish Oil) 1 Ea Cap 1 Cap PO DAILY 06/18/17 Reported Tambocor (Flecainide Acetate) 100 Mg Tab 100 Mg PO BID 07/19/16 Reported Magnesium (Magnesium Oxide) 400 Mg Tab 400 Mg PO QPM 06/05/16 Reported Hyaluronic Acid (Hhuwbtui-Uarfezjdcsz-Mjqvypadt) 1 Cap Cap 1 Cap PO BID 06/05/16 Reported DOSE 20/60 Diltiazem Hcl Er (Diltiazem Hcl Extended Release) 240 Mg Cap 240 Mg PO QPM 06/05/16 Reported Ventolin Hfa (Albuterol) 200 Puffs/96435 Mcg Aers 2 Puffs INH QID PRN 06/05/16 Reported Fluticasone Propionate 50 Mcg/Act Spr 2 Sprays JAMAL BID 06/05/16 Reported Turmeric (Turmeric (Curcuma Longa)) 500 Mg Cap 1 Cap PO QAM 11/06/15 Reported Hyzaar (Losartan Potassium & Hydrochlo) 1 Tab Tab 1 Tab PO QAM 02/27/14 Reported DOSE OF 100/25MG Zyrtec (Cetirizine HCl) 10 Mg Tab 10 Mg PO HS 12/06/11 Reported Physical Exam Vital Signs (Last 8hrs): Last 8 Hrs Date Time Temp Pulse Resp B/P (MAP) Pulse Ox O2 Delivery O2 Flow Rate FiO2 06/19/17 08:00 96 Room Air 06/19/17 08:00 36.9 118 20 102/76 (85) 96 118 06/19/17 04:10 36.8 117 18 130/78 (95) 96 Room Air 06/19/17 04:00 Room Air General Appearance: Alert and Oriented x3. NAD. Head: Normocephalic Atraumatic. Eyes: PERRLA, EOMI, conjunctiva and sclera clear Neck: Supple. No carotid bruits noted. No JVD. No HJD. Respiratory: Breath sounds clear to auscultation bilaterally. No w/r/r. Cardiovascular: Regular rhythm, no murmurs Abdomen: Normal bowel sounds, soft nontender. no abdominal bruits. Extremities: No edema, no clubbing or cyanosis. distal pulses 2/4 bilaterally. Neuro: No focal deficits. Psychiatric: Normal affect. Data Last Resulted 06/19/17 07:23 Last Resulted 06/19/17 07:23 Past 24 Hours Test 06/18/17 17:30 06/19/17 07:23 Range/Units Prothromb Time International Ratio 2.4 H 2.2 H 0.9-1.1 Prothrombin Time 24.8 H 22.5 H 9.0-12.0 SECONDS Troponin I < 0.015 < 0.015 0-0.045 ng/ml EKG performed on presentation yesterday 06/18/17 at 1616 hrs.: Atrial flutter 104 bpm with variable AV block. No significant repolarization abnormality. EKG performed this morning 06/19/17 618: Apparent atrial flutter with 2-1 AV conduction 114 bpm, nonspecific changes noted in the inferior leads. Assessment & Plan Impression: 61-year-old male with symptomatic atrial flutter with mildly elevated ventricular rate. The patient has long-standing history of atrial fibrillation has had atrial fibrillation ablation on 2 separate occasions in the past. Recommendations: With the exception of a single INR reading on 05/08/17 of 1.7, the remaining INR levels performed recently have been within the therapeutic range. The patient remains in symptomatic atrial flutter despite medication therapy. Recommend proceeding to direct-current cardioversion. Even though he has had one INR level that was below goal, this was over 1 month ago, and I would estimate that his risk of cardioembolic stroke is low. Patient is agreeable to proceeding. Future considerations include reassessment by electrophysiology to see if perhaps this is a candidate for atrial flutter ablation.
--- NOTE | 2017-06-19 11:36 | ECHOCARDIOGRAM REPORT ---
*NOTICE TO RECEIVING REPUBLICAN AGENCY This information is strictly Confidential and protected under [place] law. [place] law prohibits you from making any further disclosure of this information unless further disclosure is expressly permitted by the written consent of the person to whom it pertains or is authorized by law. A general authorization for the release of medical or other information is not sufficient for this purpose. Hospital accepts no responsibility if the information is made available to any other person, INCLUDING THE PATIENT. Interpretation Summary * Name: DAVID MENDOZA Study Date: 06/19/2017 10:19 AM BP: 102/76 mmHg * Patient Location: C.2T\S\S240\S\2 HR: 118 * : 1955 (M/d/yyyy) Gender: Male Height: 78 in * Age: 61 yrs Ethnicity: [place] Weight: 308 lb * Ordering Physician: Rivera Mclaughlin * Referring Physician: Remi Ariza * Performed By: [place] RDCS * * Reason For Study: A-Flutter * BSA: 2.7 m2 * -- Conclusions -- * There is borderline concentric left ventricular hypertrophy. * The left ventricular wall motion is normal. * The LV Aortic valve sclerosis mild, without significant aortic valvular stenosis. * The LV Ejection Fraction = 55-60%. Procedure Details * A complete two-dimensional transthoracic echocardiogram was performed (2D, M-mode, Doppler and color flow Doppler). Left Ventricle * The left ventricle is normal in size. * There is borderline concentric left ventricular hypertrophy. * Left ventricular systolic function is normal. * Ejection Fraction = 55-60%. * The left ventricular wall motion is normal. Right Ventricle * The right ventricle is normal size. * The right ventricular systolic function is normal as assessed by tricuspid annular plane systolic excursion (TAPSE) (normal >1.5 cm). Atria * The left atrial size is normal. * Right atrial size is normal. * There is no evidence of atrial septal defect, but resolution does not allow assessment for a patent foramen ovale. Mitral Valve * There is mild mitral annular calcification. * There is no mitral valve stenosis. * Significant mitral regurgitation is absent. Tricuspid Valve * The tricuspid valve is normal. * There is no tricuspid stenosis. * Significant tricuspid regurgitation is absent. * Doppler findings do not suggest pulmonary hypertension. Aortic Valve * The aortic valve is trileaflet. * Aortic valve sclerosis mild, without significant aortic valvular stenosis. * Aortic stenosis is absent. * There is no significant aortic regurgitation. Pulmonic Valve * The pulmonary valve is not well seen, but the Doppler examination is normal without significant regurgitation or stenosis. Great Vessels * The aortic root and proximal ascending aorta are normal sized. Pericardium/Pleural * There is no pericardial effusion. Great Vessels * Normal inferior vena cava diameter and respiratory variation suggests normal central venous pressure. * Normal inferior vena cava size and collapsability with sniff indicates a normal right atrial pressure of 3 mmHg MMode 2D Measurements and Calculations IVSd 1.1 cm LVIDd 4.7 cm LVIDs 3.2 cm LVPWd 1.2 cm IVS/LVPW 0.90 FS 31.4 % EDV(Teich) 100.7 ml ESV(Teich) 41.0 ml EF(Teich) 59.3 % EDV(cubed) 101.7 ml ESV(cubed) 32.8 ml EF(cubed) 67.7 % LV mass(C)d 196.9 grams LV mass(C)dI 72.6 grams/m\S\2 SV(Teich) 59.7 ml SI(Teich) 22.0 ml/m\S\2 SV(cubed) 68.9 ml SI(cubed) 25.4 ml/m\S\2 Ao root diam 3.4 cm Ao root area 8.9 cm\S\2 ACS 1.9 cm LA dimension 3.6 cm asc Aorta Diam 2.9 cm LA/Ao 1.1 LVOT diam 2.0 cm LVOT area 3.1 cm\S\2 LVAd ap4 29.7 cm\S\2 LVLd ap4 8.2 cm EDV(MOD-sp4) 88.6 ml EDV(sp4-el) 91.0 ml LVAs ap4 17.5 cm\S\2 LVLs ap4 7.4 cm ESV(MOD-sp4) 37.2 ml ESV(sp4-el) 35.5 ml EF(MOD-sp4) 58.0 % EF(sp4-el) 61.0 % LVAd ap2 34.7 cm\S\2 LVLd ap2 8.4 cm EDV(MOD-sp2) 117.6 ml EDV(sp2-el) 121.6 ml LVAs ap2 20.6 cm\S\2 LVLs ap2 7.3 cm ESV(MOD-sp2) 48.1 ml ESV(sp2-el) 49.4 ml EF(MOD-sp2) 59.1 % EF(sp2-el) 59.3 % LVLd %diff 2.2 % EDV(MOD-bp) 103.8 ml LVLs %diff -1.33 % ESV(MOD-bp) 42.0 ml EF(MOD-bp) 59.5 % SV(MOD-sp4) 51.4 ml SI(MOD-sp4) 18.9 ml/m\S\2 SV(MOD-sp2) 69.5 ml SI(MOD-sp2) 25.6 ml/m\S\2 SV(MOD-bp) 61.8 ml SI(MOD-bp) 22.8 ml/m\S\2 SV(sp4-el) 55.5 ml SI(sp4-el) 20.5 ml/m\S\2 SV(sp2-el) 72.1 ml SI(sp2-el) 26.6 ml/m\S\2 Doppler Measurements and Calculations MV E max ruby 118.8 cm/sec MV dec time 0.21 sec Ao V2 max 157.5 cm/sec Ao max PG 9.9 mmHg Ao max PG (full) 6.2 mmHg WESLEY(V,A) 1.9 cm\S\2 WESLEY(V,D) 1.9 cm\S\2 LV V1 max PG 3.7 mmHg LV V1 max 96.5 cm/sec PA V2 max 115.4 cm/sec PA max PG 5.3 mmHg PA acc slope 664.5 cm/sec\S\2 PA acc time 0.12 sec PA pr(Accel) 25.1 mmHg
[2017-06-19] MEDS: NSS + 20MEQ KCL 1000ML 1,000 ML IV SCH (12:41)
[2017-06-19] MEDS ORDERED: PROPOFOL IV EMULSION 10 MG/ML 20 ML VIAL IV ONE (13:08)
--- NOTE | 2017-06-19 13:33 | Cardioversion ---
Electricial Cardioversion Rpt Date of Service: 06/19/17 Electrical Cardioversion Rprt Procedure Date Jun 19, 2017. Pre-Procedure Diagnosis symptomatic atrial flutter Post-Procedure Diagnosis successful conversion to sinus rhythm Procedure(s) Performed Direct current cardioversion [employer] Superintendent Rudy Elizondo DO Horticulture Superintendent(s) not applicable Estimated Blood Loss none Preliminary Findings After informed consent was obtained and a time out was performed, the patient was sedated with the help of anesthesia receiving 70 mg of Propofol IV. The patient then received a single dose of 300 J of synchronized biphasic energy with successful conversion to sinus rhythm. Recommendations Continue coumadin. Discharge on increased dose of flecainide 100 mg two times per day. Has EP follow up with Dr Song at [facility] tomorrow, 06/20/17. Anesthesia Propofol 70 mg IV. Complication(s) None Disposition Transfer to telemetry after recovery.
--- NOTE | 2017-06-19 13:50 | Anesthesiology Progress Note ---
Anesthesia Post Op Note Date & Time Jun 19, 2017 at 13:50 Vital Signs Pain Intensity: 0 Vital Signs Past 12 Hours Date Time Temp Pulse Resp B/P (MAP) Pulse Ox O2 Delivery O2 Flow Rate FiO2 06/19/17 13:37 79 16 144/86 (105) 98 Room Air 06/19/17 13:27 79 16 151/87 (108) 98 Room Air 79 06/19/17 13:25 117 16 121/83 100 Nasal Cannula 5 06/19/17 13:22 117 16 154/100 100 Nasal Cannula 5 06/19/17 12:00 96 Room Air 06/19/17 11:11 36.6 116 20 147/96 (113) 95 Room Air 06/19/17 08:00 96 Room Air 06/19/17 08:00 36.9 118 20 102/76 (85) 96 118 06/19/17 04:10 36.8 117 18 130/78 (95) 96 Room Air 06/19/17 04:00 Room Air Notes Mental Status: alert / awake / arousable, participated in evaluation Pt Amnestic to Procedure: Yes Nausea / Vomiting: adequately controlled Pain: adequately controlled Airway Patency, RR, SpO2: stable & adequate BP & HR: stable & adequate Hydration State: stable & adequate Anesthetic Complications: no major complications apparent
[2017-06-19] MEDS ORDERED: FLEC100T21 PO (15:29)
--- NOTE | 2017-06-19 15:35 | Discharge Instructions ---
Discharge Instructions Date of Service Jun 19, 2017. Admission Reason for Admission: Palpitations,Rapid Atrial Fibrillation Discharge Discharge Diagnosis / Problem: RAPID AFIB Discharge Goals Goal(s): Increase independence, Improve disease control, Diagnostic testing, Therapeutic intervention Activity Recommendations Activity Limitations: resume your previous activity . Instructions / Follow-Up Instructions / Follow-Up Cardiology EP follow up with Dr Song at [facility] 06/20/17 @ 2: 45 pm HOSPITAL FOLLOW UP : DR BARROW JUNE 26 @ 2: 45 PM Current Hospital Diet Patient's current hospital diet: AHA Diet (Heart Healthy) Discharge Diet Recommended Diet: AHA Diet (Heart Healthy) Pending Studies Studies pending at discharge: no Medical Emergencies . Who to Call and When: Medical Emergencies: If at any time you feel your situation is an emergency, please call 911 immediately. . Non-Emergent Contact Non-Emergency issues call your: Primary Care Provider . . "Provider Documentation" section prepared by Maria Fernanda Rodriguez. .
--- NOTE | 2017-06-19 15:59 | Discharge Summary ---
Discharge Summary Date of Service Jun 19, 2017. Discharge Summary Admission Date: Jun 18, 2017 at 20:57 Discharge Date: Jun 19, 2017 Discharge Disposition: Home Principal Diagnosis: RAPID AFIB/status post DC cardioversion Procedures: DC cardioversion Consultations: [facility] Medication Reconciliation Continued Medications: Albuterol Hfa (Ventolin Hfa) 200 Puffs/[id number] Mcg Aers 2 PUFFS INH QID PRN for SOB/Wheezing, #1 INHALER Cetirizine (Zyrtec) 10 Mg Tab 10 MG PO HS, TAB Wdgyuycm-Fqppzjnogmh-Ggoubyrud (Hyaluronic Acid) 1 Cap Cap 1 CAP PO BID DOSE 20/60 Diltiazem Hcl Extended Release (Diltiazem Hcl Er) 240 Mg Cap 240 MG PO QPM Fish Oil ([place]-3) 1 Ea Cap 1 CAP PO DAILY, CAP Flecainide (Tambocor) 100 Mg Tab 100 MG PO BID for 30 Days, #60 TAB (This prescription has been renewed) Fluticasone Propionate (Fluticasone Propionate) 50 Mcg/Act Spr 2 SPRAYS JAMAL BID Levalbuterol (Levalbuterol HCl) 1.25 Mg/3 Ml Nebu 1 INHA PO QID PRN for Shortness of Breath Losartan Potassium & Hydrochlo (Hyzaar) 1 Tab Tab 1 TAB PO QAM DOSE OF 100/25MG Magnesium Oxide (Magnesium) 400 Mg Tab 400 MG PO QPM Turmeric (Curcuma [place]a) (Turmeric) 500 Mg Cap 1 CAP PO QAM Warfarin Sod (Jantoven) 10 Mg Tab 10 MG PO 3XWK, TAB Sunday AND SUNDAY Warfarin Sod (Jantoven) 5 Mg Tab 5 MG PO 4XWK, TAB Sunday AND SUNDAY Admission Information HPI (per Admitting provider): Patient is a 61-year-old patient with past medical history of paroxysmal fibrillation S/P pulmonary vein isolation ablation in 2007 and 2011, hypertension, obstructive sleep apnea, obesity, asthma, tachycardia induced cardiomyopathy and other problems presents with history of intermittent dizziness, "I felt weird", mild headache, increased heart rate noted on his Fitbit which started over weekend. Patient took an extra dose of flecainide 100 mg over the weekend and today as well to control his heart rate which was of no help. He also noted to have mild transient chest discomfort yesterday when his heart rate was high. His heart rate was over 120s today and so he came to ED. Denies any history of SOB, orthopnea, PND, pedal edema, diaphoresis, cough, wheezing, fever, chills, LOC, weakness, numbness, change in vision, nausea, vomiting, abdominal pain, change in appetite, dysuria, recent travel, sick contact, recent change in medications. He follows with for atrial fibrillation. Physical Exam (per Admitting): General Appearance: WD/WN, no apparent distress Head: normocephalic, atraumatic Eyes: normal inspection, PERRL, EOMI, sclerae normal ENT: normal ENT inspection, hearing grossly normal Neck: supple, trachea midline Respiratory/Chest: chest non-tender, lungs clear, normal breath sounds, no respiratory distress, no accessory muscle use Cardiovascular: no edema, no murmur, + tachycardia, + irregularly irregular Abdomen/GI: normal bowel sounds, non tender, soft Back: normal inspection Extremities/Musculoskelatal: normal inspection, no pedal edema Neurologic/Psych: telephone cleaner II-XII nml as tested, no motor/sensory deficits, alert , normal mood/affect, oriented x 3 Skin: normal color, warm/dry Hospital Course No complaint of chest pain, no palpitation, or shortness of breath Status post successful DC cardioversion today Discussed with cardiology Stable to be discharged home with the flecainide does milligrams twice daily diltiazem 240 mg daily Patient is scheduled to see EP cardiology tomorrow for 2017 at [facility] Total time spent on discharge = 35 mins This includes examination of the patient, discharge planning, medication reconciliation, and communication with other providers. Discharge Instructions Discharge Instructions Date of Service Jun 19, 2017. Admission Reason for Admission: Palpitations,Rapid Atrial Fibrillation Discharge Discharge Diagnosis / Problem: RAPID AFIB/status post DC cardioversion Discharge Goals Goal(s): Increase independence, Improve disease control, Diagnostic testing, Therapeutic intervention Activity Recommendations Activity Limitations: resume your previous activity . Instructions / Follow-Up Instructions / Follow-Up Cardiology EP follow up with Dr Song at [facility] 06/20/17 @ 2: 45 pm HOSPITAL FOLLOW UP : DR BARROW JUNE 26 @ 2: 45 PM Current Hospital Diet Patient's current hospital diet: AHA Diet (Heart Healthy) Discharge Diet Recommended Diet: AHA Diet (Heart Healthy) Pending Studies Studies pending at discharge: no Medical Emergencies . Who to Call and When: Medical Emergencies: If at any time you feel your situation is an emergency, please call 911 immediately. . Non-Emergent Contact Non-Emergency issues call your: Primary Care Provider . . "Provider Documentation" section prepared by Maria Fernanda Rodriguez. .
[2017-06-19] MEDS ORDERED: WARFARIN SOD 5 MG TAB PO SCH (16:00)
[2017-06-19] MEDS ORDERED: CETIRIZINE HCL 10 MG TAB PO SCH (21:00)
[2017-06-19] MEDS ORDERED: MAGNESIUM OXIDE 400 MG TAB PO SCH (21:00)
[2017-06-20] MEDS ORDERED: WARFARIN SOD 10 MG TAB PO SCH (16:00)
== END 2017-06-19 16:00 | disposition home or self-care (01) | DRG 310 ==
LOC: C.EDB 16:03 → C.2T 20:57 → ENRESERV 21:44
PROVIDERS: ADMIT Internal Medicine; ATTEND Hospitalist
PROC: 5A2204Z Restoration of Cardiac Rhythm, Single (ICD-10-PCS; principal; 2017-06-19 07:00)
DX: I48.92 Unspecified atrial flutter (principal); I48.91 Unspecified atrial fibrillation; I42.8 Other cardiomyopathies; I10 Essential (primary) hypertension; J45.909 Unspecified asthma, uncomplicated; J30.9 Allergic rhinitis, unspecified; M19.90 Unspecified osteoarthritis, unspecified site; G47.33 Obstructive sleep apnea (adult) (pediatric); E66.9 Obesity, unspecified; Z68.35 Body mass index [BMI] 35.0-35.9, adult; Z99.89 Dependence on other enabling machines and devices; Z96.653 Presence of artificial knee joint, bilateral; Z79.01 Long term (current) use of anticoagulants; Z79.899 Other long term (current) drug therapy; Z88.8 Allergy status to other drugs, medicaments and biological substances

== ENCOUNTER 2019-01-21 10:03 | Observation (INO) ==
--- NOTE | 2019-01-21 10:29 | XRay Report ---
XR chest 1V portable CLINICAL HISTORY: chest pain afib cardiac arrhythmia COMPARISON STUDY: 06/18/2017 FINDINGS: Mild stable cardiomegaly. The lungs are clear. The diaphragms are smooth. IMPRESSION: Mild stable cardiomegaly. No acute process. The above report was generated using voice recognition software. It may contain grammatical, syntax or spelling errors. Electronically signed by: Peter Peters M.D. 01/21/2019 10:27 AM
[2019-01-21 11:38] LABS: Basophils # (auto) 0.02 K/uL (0-0.2); Basophils % (auto) 0.3 %; Eosinophils # (auto) 0.17 K/uL (0-0.5); Eosinophils % (auto) 2.8 %; Hematocrit (blood only) 48.5 % (42-52); Hemoglobin 17.3 g/dL (14.0-18.0); Immature Granulocytes # (auto) 0.02 K/uL (0.00-0.02); Immature Granulocytes % (auto) 0.3 %; Lymphocytes # (auto) 2.09 K/uL (1.2-3.4); Lymphocytes % (auto) 34.8 %; Mean Corpuscular Hemoglobin 34.1 pg (25-34); Mean Corpuscular Hgb Conc 35.7 g/dL (32-36); Mean Corpuscular Volume 95.5 fL (80-100); Mean Platelet Volume 10.3 fL (7.4-10.4); Monocytes # (auto) 0.66 K/uL (0.11-0.59); Neutrophils # (auto) 3.05 K/uL (1.4-6.5); Neutrophils % (auto) 50.8 %; Platelet Count 214 K/uL (130-400); RDW Coefficient of Variation 13.1 % (11.5-14.5); RDW Standard Deviation 45.2 fL (36.4-46.3); Red Blood Count 5.08 M/uL (4.7-6.1); White Blood Count 6.01 K/uL (4.8-10.8)
[2019-01-21 11:45] LABS: Alanine Aminotransferase 30 U/L (12-78); Albumin Level 4.2 gm/dl (3.4-5.0); Aspartate Aminotransferase 19 U/L (15-37); BUN Creatinine Ratio 12.1 (10-20); Blood Urea Nitrogen 11 mg/dl (7-18); Calcium 9.1 mg/dl (8.5-10.1); Carbon Dioxide 26 mmol/L (21-32); Chloride 102 mmol/L (98-107); Creatinine Clr Calc Pharmacy 128.5 ml/min; Est GFR (African American) 104.7; Est GFR (Non-African American) 90.4; Glucose 114 mg/dl (70-99); Magnesium 2.2 mg/dl (1.8-2.4); Potassium 4.3 mmol/L (3.5-5.1); Sodium 134 mmol/L (136-145)
[2019-01-21 11:50] LABS: Alkaline Phosphatase 83 U/L (45-117); Bilirubin,Total 0.9 mg/dl (0.2-1); Globulin 4.1 gm/dl (2.5-4.0); Total Protein 8.3 gm/dl (6.4-8.2); Troponin I < 0.015 ng/ml (0-0.045)
[2019-01-21 13:14] LABS: INR 2.1 (0.9-1.1); Prothrombin Time 20.6 Seconds (9.0-12.0)
--- NOTE | 2019-01-21 13:19 | Emergency Department Note ---
Entered by Dejon Aguila acting as a scribe for Crow Sorensen DO History of Present Illness General Chief complaint: Tachycardia Stated complaint: AFIB Time Seen by Provider: 01/21/19 10:54 Source: patient History of Present Illness Provider complaint: Palpitations Onset (ago): day(s) 1 Location: chest Severity: similar to prior episodes Pain Consistency: + intermittent Maximum Pain Intensity: 0 Associated symptoms: + other (Lightheaded); no chest pain The patient is a 63 year old male who presents to the Emergency Room with complaints of intermittent heart palpitations that he noticed last night. The patient states he has had issues of intermittently going into Afib for the past 10 years ago and 2 years ago he had an episode of atrial flutter. The patient reports that last night he also was tachycardic at 120 which is about double his baseline of 55-60 bpm. He adds that due to these symptoms he became lightheaded but denies any falls or loss of consciousness. The patient states that he follows with a electrocardiologist in [place] who instructed him to take a double dose of Flecainide when he feels himself going into Afib. The patient reports that he did do this last night but his symptoms persisted. The patient notes he is already on Coumadin and his last INR level was within normal limits. The patient denies any chest pain. Home Medications Home Medications Medication Instructions Recorded Confirmed Type diltiazem HCl [Cartia XT] 240 mg PO DAILY 01/21/19 01/21/19 History fexofenadine 180 mg PO DAILY 01/21/19 01/21/19 History flecainide 100 mg PO BID 01/21/19 01/21/19 History fluticasone propionate 2 spray INTRANASAL DAILY 01/21/19 01/21/19 History losartan-hydrochlorothiazide 1 tab PO DAILY 01/21/19 01/21/19 History magnesium 665 mg PO DAILY 01/21/19 01/21/19 History omega 2-hrx-luz-fish oil [Fish Oil] 1,000 cap PO DAILY 01/21/19 01/21/19 History potassium chloride 10 meq PO DAILY 01/21/19 01/21/19 History turmeric root extract 500 mg PO DAILY 01/21/19 01/21/19 History warfarin 5 mg PO 4XWK 01/21/19 01/21/19 History warfarin 10 mg PO 3XWK 01/21/19 01/21/19 History Allergies Allergy/AdvReac Type Severity Reaction Status Date / Time allopurinol Allergy Unknown hives Verified 01/21/19 11:33 PADMINI Inhibitors AdvReac Unknown cough Verified 01/21/19 11:33 Past Med/Surg History Medical History Atrial fibrillation with rapid ventricular response (Resolved) Atrial fibrillation with RVR (Inactive) Chronic allergic conjunctivitis (Chronic 06/04/11) History of sustained ventricular tachycardia (Resolved 06/04/11) Intermittent asthma (Chronic 06/04/11) Rapid atrial fibrillation (Acute 04/14/14) Family History Other Family history non-contributory Social History Preferred Language: Irish Feels Safe at Home: Yes Smoking Status: Never smoker Review of Systems See HPI for pertinent positives & negatives. and A total of 10 systems reviewed and were otherwise negative Physical Exam Vital Signs Vital Signs - 24 hr 01/21/19 10:07 01/21/19 10:27 01/21/19 11:00 Temperature 36.7 C Temperature Source Oral Pulse Rate 94 H 87 Pulse Rate from SpO2 Sensor 88 Respiratory Rate 19 19 Respiratory Effort / Characteristics Non-Labored Respiratory Depth Normal Respiratory Pattern Regular Blood Pressure 180/86 H 149/107 H Blood Pressure Mean 117 129 Blood Pressure Position Sitting Pulse Oximetry 95 96 96 Oxygen Delivery Method Room Air Room Air Sepsis Recent Fever Within 48 Hours No Sepsis New/Unexplained Change in Mental Status No Sepsis Action Taken by Nursing No Action Required 01/21/19 11:01 01/21/19 11:30 01/21/19 11:31 Temperature Temperature Source Pulse Rate 87 82 102 H Pulse Rate from SpO2 Sensor 95 H 88 100 H Respiratory Rate 19 15 21 Respiratory Effort / Characteristics Respiratory Depth Respiratory Pattern Blood Pressure 154/102 H Blood Pressure Mean 108 Blood Pressure Position Pulse Oximetry 96 95 96 Oxygen Delivery Method Sepsis Recent Fever Within 48 Hours Sepsis New/Unexplained Change in Mental Status Sepsis Action Taken by Nursing 01/21/19 12:00 01/21/19 12:05 01/21/19 12:08 Temperature Temperature Source Pulse Rate 102 H 102 H Pulse Rate from SpO2 Sensor 101 H Respiratory Rate 19 25 H Respiratory Effort / Characteristics Respiratory Depth Respiratory Pattern Blood Pressure 154/98 H Blood Pressure Mean 121 Blood Pressure Position Pulse Oximetry 94 96 Oxygen Delivery Method Room Air Sepsis Recent Fever Within 48 Hours Sepsis New/Unexplained Change in Mental Status Sepsis Action Taken by Nursing 01/21/19 12:30 01/21/19 12:31 01/21/19 13:00 Temperature Temperature Source Pulse Rate 95 H 96 H 105 H Pulse Rate from SpO2 Sensor Respiratory Rate 19 16 19 Respiratory Effort / Characteristics Respiratory Depth Respiratory Pattern Blood Pressure 144/100 H 133/105 H Blood Pressure Mean 123 125 Blood Pressure Position Pulse Oximetry Oxygen Delivery Method Sepsis Recent Fever Within 48 Hours Sepsis New/Unexplained Change in Mental Status Sepsis Action Taken by Nursing 01/21/19 13:01 Temperature Temperature Source Pulse Rate 84 Pulse Rate from SpO2 Sensor Respiratory Rate 22 Respiratory Effort / Characteristics Respiratory Depth Respiratory Pattern Blood Pressure Blood Pressure Mean Blood Pressure Position Pulse Oximetry Oxygen Delivery Method Sepsis Recent Fever Within 48 Hours Sepsis New/Unexplained Change in Mental Status Sepsis Action Taken by Nursing CONSTITUTIONAL/VITAL SIGNS: Reviewed / noted above. GENERAL: Non-toxic in appearance. INTEGUMENTARY: Warm, dry, and [place]. HEAD: Normocephalic. EYES: without scleral icterus or trauma. ENT/OROPHARYNX: clear and moist. LYMPHADENOPATHY/NECK: Is supple without lymphadenopathy or meningismus. RESPIRATORY: Lungs clear and equal. CARDIOVASCULAR: Regular rate and rhythm. GI/ABDOMEN: Soft and nontender. No organomegaly or pulsatile mass. No rebound or guarding. Normal bowel sounds. EXTREMITIES: Warm and well perfused. BACK: No CVA tenderness. NEUROLOGICAL: Intact without focal deficits. PSYCHIATRIC: normal affect. MUSCULOSKELETAL: Normally developed with good muscle tone. Course Course 1059: Past medical records reviewed. The patient was evaluated in room B11A, and a complete history and physical examination were performed. 1301: I spoke to Dr. Jeferson Rodriguez about the patient's case. He recommends keeping the patient for observation for cardioversion. 1305: I reevaluated the patient and updated him on results. We also discussed the treatment plan and he is agreeable. 1312: I spoke to Dr. Scotty Estrada Hospitalist about the patient's case. He is going to accept the patient for further evaluation. Consultations Consultation #1: I spoke to Dr. Jeferson - [facility] about the patient's case. He recommends keeping the patient for observation for cardioversion. Time: 13:01 Consultation #2: I spoke to Dr[facility] Fajardo - [facility] about the patient's case. He is going to accept the patient for further evaluation. Time: 13:12 Medical Decision Making Differential Diagnosis Differential: NSR, SVT, PACs, PVCs, Cardiac Dysrhythmia, Endocrine Dysfunction, Electrolyte/Metabolic Abnormality, Pulmonary Embolism, Infectious, GI, amongst other pathologies entertained. Medical Records Attestation: I reviewed the patient's medical records. Home Medications Current Medication List: was personally reviewed by me Laboratory Data Attestation: I reviewed the patient's lab results. Result diagrams: 01/21/19 10:20 01/21/19 10:20 Lab Results 01/21/19 01/21/19 01/21/19 Range/Units 10:20 10:20 10:20 WBC 6.01 (4.8-10.8) K/uL RBC 5.08 (4.7-6.1) M/uL Hgb 17.3 (14.0-18.0) g/dL Hct 48.5 (42-52) % MCV 95.5 (80-100) fL MCH 34.1 H (25-34) pg MCHC 35.7 (32-36) g/dL RDW Std Deviation 45.2 (36.4-46.3) fL RDW Coeff of Cindy 13.1 (11.5-14.5) % Plt Count 214 (130-400) K/uL MPV 10.3 (7.4-10.4) fL Immature Gran % (Auto) 0.3 % Neut % (Auto) 50.8 % Lymph % (Auto) 34.8 % [place] % (Auto) 11.0 % Eos % (Auto) 2.8 % Baso % (Auto) 0.3 % Immature Gran # (Auto) 0.02 (0.00-0.02) K/uL Neut # (Auto) 3.05 (1.4-6.5) K/uL Lymph # (Auto) 2.09 (1.2-3.4) K/uL [place] # (Auto) 0.66 H (0.11-0.59) K/uL Eos # (Auto) 0.17 (0-0.5) K/uL Baso # (Auto) 0.02 (0-0.2) K/uL PT 20.6 H (9.0-12.0) Seconds INR 2.1 H (0.9-1.1) Sodium 134 L (136-145) mmol/L Potassium 4.3 (3.5-5.1) mmol/L Chloride 102 (98-107) mmol/L Carbon Dioxide 26 (21-32) mmol/L Anion Gap 6.0 (3-11) BUN 11 (7-18) mg/dl Creatinine 0.89 (0.6-1.4) mg/dl Est Cr Clr Drug Dosing 128.5 ml/min Est GFR ( Amer) 104.7 Est GFR (Non-Af Amer) 90.4 BUN/Creatinine Ratio 12.1 (10-20) Glucose 114 H (70-99) mg/dl Calcium 9.1 (8.5-10.1) mg/dl Magnesium 2.2 (1.8-2.4) mg/dl Total Bilirubin 0.9 (0.2-1) mg/dl AST 19 (15-37) U/L ALT 30 (12-78) U/L Alkaline Phosphatase 83 (45-117) U/L Troponin I < 0.015 (0-0.045) ng/ml Total Protein 8.3 H (6.4-8.2) gm/dl Albumin 4.2 (3.4-5.0) gm/dl Globulin 4.1 H (2.5-4.0) gm/dl Albumin/Globulin Ratio 1.0 (0.9-2) Imaging Data Radiologist's Impression: Radiology results as stated below per my review and the radiologist's interpretation: XR chest 1V portable CLINICAL HISTORY: chest pain afib cardiac arrhythmia COMPARISON STUDY: 06/18/2017 FINDINGS: Mild stable cardiomegaly. The lungs are clear. The diaphragms are smooth. IMPRESSION: Mild stable cardiomegaly. No acute process. The above report was generated using voice recognition software. It may contain grammatical, syntax or spelling errors. Electronically signed by: Peter Peters M.D. 01/21/2019 10:27 AM ECG Data Attestation: I personally reviewed and interpreted this ECG as follows: Indication: + palpitations and + tachycardia Rate (beats per minute): 85 Rhythm: + atrial flutter ECG ST segments: no ST elevation ECG Findings: no PACs and no PVCs Blood Pressure Blood Pressure Findings: Elevated blood pressure Blood Pressure Disposition: Referred to patients primary care provider ADRIAN Reed This is a 63-year-old male who presents to the ED with a chief complaint of irregular heartbeat and rapid heartbeat last night. Details are listed above. The patient did take a double dose of flecainide in addition to his usual dose last night as he was in atrial flutter with a heart rate in the 120s. He states that he is chronically on Coumadin. The patient has no additional complaints today. He came in because his heart did not feel like it was beating right. His twelve-lead EKG shows atrial flutter at a rate of 85. Chest x-ray was negative for acute disease. CBC was normal. Troponin was negative. Complete metabolic panel was normal. I spoke with Dr. Govea about the patient. The patient last drank fluid this morning around [address] Govea will see the patient and suggested that the patient should be observed overnight and cardioverted tomorrow. The patient is in agreement. Dr. Fajardo will see the patient for further evaluation and care. His INR was 2.1. Impression & Plan Atrial flutter Discharge Plan Visit Data Chief Complaint: Tachycardia Stated Complaint: AFIB ED Provider: Crow Sorensen Discharge Problem: Atrial flutter Patient Disposition: Being Evaluated by Hospitalist Forms Stand Alone Forms: My [facility] Prescriptions Prescriptions: No Action diltiazem HCl [Cartia XT] 240 mg capsule,extended release 24hr 240 mg PO DAILY RF: 0 potassium chloride 10 mEq Tablet Extended Release 10 meq PO DAILY RF: 0 fexofenadine 180 mg Tablet 180 mg PO DAILY RF: 0 losartan-hydrochlorothiazide 100-25 mg tablet 1 tab PO DAILY RF: 0 warfarin 5 mg tablet 10 mg PO 3XWK RF: 0 warfarin 5 mg tablet 5 mg PO 4XWK RF: 0 flecainide 100 mg tablet 100 mg PO BID RF: 0 fluticasone propionate 50 mcg/actuation spray,suspension 2 spray INTRANASAL DAILY RF: 0 magnesium 30 mg Tablet 665 mg PO DAILY RF: 0 omega 6-xlw-npl-fish oil [Fish Oil] 1,000 mg (120 mg-180 mg) Capsule 1,000 cap PO DAILY RF: 0 turmeric root extract 500 mg Capsule 500 mg PO DAILY RF: 0 Referrals Referrals: Jarrett Doan DO [Primary Care Provider] - Discharge Problem: Atrial flutter Qualifiers: Atrial flutter type: unspecified Qualified Code(s): I48.92 - Unspecified atrial flutter The scribe's documentation has been prepared under my direction and personally reviewed by me in its entirety. I confirm that the note above accurately reflects all work, treatment, procedures, and medical decision making performed by me.
--- NOTE | 2019-01-21 13:57 | History & Physical Report ---
Date of Service January 21, 2019 Assessment & Plan (1) Atrial fibrillation with RVR: History of atrial flutter and history of ablation x2 Rate is controlled so far with flecainide 100 mg twice daily Noted to have rapid ventricular response since last evening Rate went down to some extent after taking 200 mg extra dose of flecainide No electrode abnormality and the heart rate is coming down Will be admitted to telemetry unit Cardiology consulted We will continue all of his medications N.p.o. after midnight for possible cardioversion tomorrow (2) HTN (hypertension): Blood pressure remains stable Diastolic seems to be high at 105 Continue Cardizem and losartan/hydrochlorthiazide (3) Intermittent asthma: No wheezing and/or shortness of breath Asthma seems to be stable (4) RAFAEL (obstructive sleep apnea): Can have his own CPAP at night DVT prophylaxis Has been on Coumadin for atrial flutter NR is 2.1 today Continue current dose of Coumadin CODE STATUS Full History of Present Illness Chief Complaint: Atrial flutter with RVR since last night Primary Care Provider: Jarrett Doan DO Is a 63-year-old obese male with significant past medical history of atrial fibrillation/flutter and has had ablation surgery and has been on flecainide, hypertension, non-symptomatic carotid stenosis, obstructive sleep apnea on CPAP and controlled asthma has been complaining of increasing heart rate since last evening. He noted to have increasing heart rate and his watch and he was feeling some dizziness with ambulation. He has been on flecainide 100 mg twice daily to control his atrial flutter but was advised to take care to extend tablets in case and the rate is high. On top of his usual dose of flecainide he took 200 mg extra dose at around 10:30 PM last night. This morning his heart rate remains elevated more than 100 and he was still having some discomfort especially dizziness with ambulation but denies any other symptoms of palpitation, shortness of breath, chest pain, abdominal pain nausea and/or vomiting. Denies any problem with his urine and her bowel habit. No numbness and/or tingling in the extremities. He was noted to be in atrial flutter with a rate of 87 in the emergency room and his relevant blood test came out to be unremarkable and INR was 2.1. Dr. Govea was informed and he will have an elective cardioversion tomorrow. Allergies Allergy/AdvReac Type Severity Reaction Status Date / Time allopurinol Allergy Unknown hives Verified 01/21/19 11:33 PADMINI Inhibitors AdvReac Unknown cough Verified 01/21/19 11:33 Home Medications Home Medications Medication Instructions Recorded Confirmed Type diltiazem HCl [Cartia XT] 240 mg PO DAILY 01/21/19 01/21/19 History fexofenadine 180 mg PO DAILY 01/21/19 01/21/19 History flecainide 100 mg PO BID 01/21/19 01/21/19 History fluticasone propionate 2 spray INTRANASAL DAILY 01/21/19 01/21/19 History losartan-hydrochlorothiazide 1 tab PO DAILY 01/21/19 01/21/19 History magnesium 665 mg PO DAILY 01/21/19 01/21/19 History omega 0-raj-epm-fish oil [Fish Oil] 1,000 cap PO DAILY 01/21/19 01/21/19 History potassium chloride 10 meq PO DAILY 01/21/19 01/21/19 History turmeric root extract 500 mg PO DAILY 01/21/19 01/21/19 History warfarin 5 mg PO 4XWK 01/21/19 01/21/19 History warfarin 10 mg PO 3XWK 01/21/19 01/21/19 History Past Med/Surg History Medical History Atrial fibrillation with rapid ventricular response (Resolved) Atrial fibrillation with RVR (Inactive) Chronic allergic conjunctivitis (Chronic 06/04/11) History of sustained ventricular tachycardia (Resolved 06/04/11) Intermittent asthma (Chronic 06/04/11) Rapid atrial fibrillation (Acute 04/14/14) Family History Other Family history non-contributory Social History Preferred Language: Argentine Feels Safe at Home: Yes Smoking Status: Never smoker Review of Systems Review of Systems: All systems reviewed & are unremarkable except as noted in HPI & below Physical Exam Physical Exam: No apparent distress at rest but anxious Constitutional: well developed, well nourished, + ill appearing and + obese; no acute distress Eyes: PERRL, conjunctivae normal, anicteric sclerae ENMT: external ear and nose normal, oropharynx normal Neck: trachea midline, no thyromegaly Respiratory: normal respiratory effort; no respiratory distress Auscultation: lungs clear to auscultation bilaterally Cardiovascular: Rate/Rhythm: + abnormal rate and + abnormal rhythm Heart Sounds: no murmur Gastrointestinal (Abdomen): Inspection/Auscultation: abdomen normal to inspection and normal bowel sounds Percussion/Palpation: abdomen soft; abdomen nontender Musculoskeletal: No acute arthritis in any joints Neurologic: moves all extremities; no focal motor deficits Psychiatric: A+Ox3, euthymic affect Lymphatic: no cervical or axillary lymphadenopathy Results & Data Vital Signs (Past 12 Hours) Vital Signs Temp Pulse Resp BP Pulse Ox 01/21/19 13:01 84 22 01/21/19 13:00 105 H 19 133/105 H 01/21/19 12:31 96 H 16 01/21/19 12:30 95 H 19 144/100 H 01/21/19 12:08 96 01/21/19 12:05 102 H 25 H 01/21/19 12:00 102 H 19 154/98 H 94 01/21/19 11:31 102 H 21 96 01/21/19 11:30 82 15 154/102 H 95 01/21/19 11:01 87 19 96 01/21/19 11:00 87 19 149/107 H 96 01/21/19 10:27 96 01/21/19 10:07 36.7 C 94 H 19 180/86 H 95 Laboratory Results Short CBC 01/21/19 Range/Units 10:20 WBC 6.01 (4.8-10.8) K/uL Hgb 17.3 (14.0-18.0) g/dL Hct 48.5 (42-52) % Plt Count 214 (130-400) K/uL BMP 01/21/19 10:20 Sodium 134 L Potassium 4.3 Chloride 102 Carbon Dioxide 26 BUN 11 Creatinine 0.89 Glucose 114 H Calcium 9.1 Cardiac Enzymes 01/21/19 Range/Units 10:20 Troponin I < 0.015 (0-0.045) ng/ml Liver Function 01/21/19 Range/Units 10:20 Total Bilirubin 0.9 (0.2-1) mg/dl AST 19 (15-37) U/L ALT 30 (12-78) U/L Alkaline Phosphatase 83 (45-117) U/L Albumin 4.2 (3.4-5.0) gm/dl Code Status & VTE Plan VTE Prophylaxis Plan VTE Prophylaxis will be ordered: Yes
--- NOTE | 2019-01-21 14:57 | Cardiology Consultation ---
Date of Consultation January 21, 2019 Assessment & Plan (1) Atrial flutter: Asymptomatic. Given the pattern on EKG and the fact that his atrial rate is less than 300 I do not believe that this is trach caval isthmus flutter but more likely a left- sided flutter secondary to his multiple PVI's. However, this is the exact same pattern as his last presentation in 2018 and he was successfully cardioverted at that time and I believe he will likely be able to cardiovert to normal sinus rhythm again at this time. Likely his INR is been therapeutic for quite some time now so I do not believe a PATRIZIA is necessary. Therapeutic options including DC cardioversion for alevism of sinus rhythm versus rate control were discussed with the patient and his a great length today. They would like to proceed with DC cardioversion in the a.m. and then follow-up with Dr. lniares to discuss possible options going forward. He does have a long history of difficulty with antiarrhythmic medications and he believes he is intolerant to metoprolol as well so I will hold off any medication changes at t his time and will defer that to our electrophysiology colleagues. He will be made n.p.o. after midnight and continued on his normal outpatient medical regimen. They are also counseled that should the cardioversion not be successful then rate controlling agents will be adjusted and he will follow-up with electrophysiology at that time. (2) Atrial fibrillation with rapid ventricular response: Status post PVI x2 (3) Tachycardia induced cardiomyopathy: Resolved with alevism of sinus rhythm in the past (4) RAFAEL (obstructive sleep apnea): Continue CPAP History of Present Illness Attending Physician: Osman Fajardo MD History of Present Illness It was my pleasure to see Mr. Andrews in consultation today January 21, 2019. Is a very pleasant 63-year-old gentleman with an extensive atrial arrhythmia history as below who normally follows with Drs. Linares and To of [facility] cardiology. He presented to [facility] emergency department on 01/21/2019 after having 2 days of elevated heart rates on his Fitbit. Clinically states he has been feeling well may be a little lightheaded but otherwise denying chest pain, shortness of breath, palpitations or syncope. After 2 days of elevated rates he became concerned and came into the emergency department in the emergency department his EKG was read as atrial flutter and he was admitted to telemetry. He and his state that this is his normal presentation for atrial flutter it is usually asymptomatic but with atrial fibrillation he will be very symptomatic with dyspnea. He is been taking all his medications as directed and his INR has been therapeutic for over a year now through the [facility] clinic. He does note though that he missed his morning medications yesterday and was likely dehydrated as well. As per Dr. Linares's most recent office visit note on 10/23/18: Problems 1. History of paroxysmal progressing to persistent atrial fibrillation (AF) 2. S/P pulmonary vein isolation (PVI) ablations in 2007 ([place]) and 2011 ([place]) with post PVI atrial flutter (AFL) in 2018 3. Hypertension 4. Obstructive sleep apnea 5. Obesity 6. Asthma 7. 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 He returns as an add on for evaluation of his AF managed with flecainide. He has a history of PAF which became persistent and associated with a tachycardia induced cardiomyopathy in 2007. He failed trials of sotalol and dofetilide, and underwent a PVI ablation by Zohreh Sanders in 2007. This procedure was felt to have been successful in isolating his PVs, and he did well off anti-arrhythmic therapy until 2008 when he had his first recurrence of PAF. He had further infrequent recurrences prior to at which time he hadpersistent AF and wasstarted on dronedarone followed by referral for another PVI ablation. In 2011 Adonis Toledo performed a redo PVI ablation after finding that all 4 PVs had reconnected. The redo ablation was felt to have re-isolated the PVs, and he was discharged on Tikosyn which was stopped in . He subsequently did well with infrequent AF on no AAD Rx until 2014 when he had enough PAF that flecainide was started. After that he had one or 2 episodes of highly symptomatic AF per year, some of which were terminated with a DCC. Attempts to uptitrate his flecainide resulted in fatigue, and in 2016 his flecainide was downtitrated to 50 mg bid. In 2017 he had an episode of AFL which resulted in an admission to [facility]. He noted that the AFL was not as symptomatic as his prior AF. He underwent a DCC, and was discharged on a higher dose of flecainide. He was in NSR on flecainide at his last appointment in . He requested today's appointment as a "check up". Today he reports no AF or AFL since his last clinic visit. He describes periodic lightheadedness which is not postural, but no syncope or true pre-syncope. He has had no chest pain consistent with angina, or limiting dyspnea. No bleeding, TIA or CVA on warfarin. We had a long conversation regarding anticoagulation options, but he is satisfied to remain on warfarin. Allergies Allergy/AdvReac Type Severity Reaction Status Date / Time allopurinol Allergy Unknown hives Verified 01/21/19 11:33 PADMINI Inhibitors AdvReac Unknown cough Verified 01/21/19 11:33 Home Medications Home Medications Medication Instructions Recorded Confirmed Type diltiazem HCl [Cartia XT] 240 mg PO DAILY 01/21/19 01/21/19 History fexofenadine 180 mg PO DAILY 01/21/19 01/21/19 History flecainide 100 mg PO BID 01/21/19 01/21/19 History fluticasone propionate 2 spray INTRANASAL DAILY 01/21/19 01/21/19 History losartan-hydrochlorothiazide 1 tab PO DAILY 01/21/19 01/21/19 History magnesium 665 mg PO DAILY 01/21/19 01/21/19 History omega 3-bos-tgw-fish oil [Fish Oil] 1,000 cap PO DAILY 01/21/19 01/21/19 History potassium chloride 10 meq PO DAILY 01/21/19 01/21/19 History turmeric root extract 500 mg PO DAILY 01/21/19 01/21/19 History warfarin 5 mg PO 4XWK 01/21/19 01/21/19 History warfarin 10 mg PO 3XWK 01/21/19 01/21/19 History Patient History Medical History Atrial fibrillation with rapid ventricular response (Resolved) Atrial fibrillation with RVR (Inactive) Chronic allergic conjunctivitis (Chronic 06/04/11) History of sustained ventricular tachycardia (Resolved 06/04/11) HTN (hypertension) Intermittent asthma (Chronic 06/04/11) RAFAEL (obstructive sleep apnea) Rapid atrial fibrillation (Acute 04/14/14) Family History Other Family history non-contributory Social History Preferred Language: Nepali Podiatric Medicine Professor Required: No Beliefs That Will Affect Care: None Current Living Situation: Spouse Other Information That Helps Us Care for You: No Feels Safe at Home: No Is there a partner from a previous relationship who is making you feel unsafe now?: No Any Concerns about Your Family Situation: No Would You Like to Speak to Someone About Your Situation: No Safety Concerns: Feels Safe At This Time Smoking Status: Former smoker Tobacco Type: cigarettes ; Do You Dip or Chew Tobacco: No ; Hx Alcohol Use: Yes Alcohol type: wine Hx Substance Use: No Review of Systems Review of Systems: All systems reviewed & are unremarkable except as noted in HPI & below Physical Exam Physical Exam: General: Awake, alert and oriented x 3. No acute distress. HEENT: Normocephalic, atraumatic. Pupils equal, round and reactive to light and accommodation. Extraocular muscles are intact. Anicteric sclera. Moist mucous membranes. Neck: No JVD. No bruit. Cardiovascular: irregularly irregular, unable to appreciate murmur, rub or gallop. Pulmonary: Clear to auscultation bilaterally. No rales, rhonchi, or wheezing. Abdomen: Bowel sounds x 4, soft. No rebound, guarding or tenderness. No organomegaly. Extremities: No clubbing, cyanosis or edema. +2 pedal pulses bilaterally. Skin: Warm and dry. Results & Data Vital Signs (Past 12 Hours) Vital Signs Temp Pulse Resp BP Pulse Ox 01/21/19 14:23 96 01/21/19 14:00 107 H 20 01/21/19 13:31 96 H 25 H 01/21/19 13:30 94 H 17 198/122 H 01/21/19 13:01 84 22 01/21/19 13:00 105 H 19 133/105 H 01/21/19 12:31 96 H 16 01/21/19 12:30 95 H 19 144/100 H 01/21/19 12:08 96 01/21/19 12:05 102 H 25 H 01/21/19 12:00 102 H 19 154/98 H 94 01/21/19 11:31 102 H 21 96 01/21/19 11:30 82 15 154/102 H 95 01/21/19 11:01 87 19 96 01/21/19 11:00 87 19 149/107 H 96 01/21/19 10:27 96 01/21/19 10:07 36.7 C 94 H 19 180/86 H 95 Laboratory Results Laboratory Results - last 24 hr 01/21/19 01/21/19 01/21/19 10:20 10:20 10:20 WBC 6.01 RBC 5.08 Hgb 17.3 Hct 48.5 MCV 95.5 MCH 34.1 H MCHC 35.7 RDW Std Deviation 45.2 RDW Coeff of Cindy 13.1 Plt Count 214 MPV 10.3 Immature Gran % (Auto) 0.3 Neut % (Auto) 50.8 Lymph % (Auto) 34.8 Hendry % (Auto) 11.0 Eos % (Auto) 2.8 Baso % (Auto) 0.3 Immature Gran # (Auto) 0.02 Neut # (Auto) 3.05 Lymph # (Auto) 2.09 Hendry # (Auto) 0.66 H Eos # (Auto) 0.17 Baso # (Auto) 0.02 PT 20.6 H INR 2.1 H Sodium 134 L Potassium 4.3 Chloride 102 Carbon Dioxide 26 Anion Gap 6.0 BUN 11 Creatinine 0.89 Est Cr Clr Drug Dosing 128.5 Est GFR ( Amer) 104.7 Est GFR (Non-Af Amer) 90.4 BUN/Creatinine Ratio 12.1 Glucose 114 H Calcium 9.1 Magnesium 2.2 Total Bilirubin 0.9 AST 19 ALT 30 Alkaline Phosphatase 83 Troponin I < 0.015 Total Protein 8.3 H Albumin 4.2 Globulin 4.1 H Albumin/Globulin Ratio 1.0 Medications Administered Current Inpatient Medications Diltiazem HCl (Cardizem Cd) 240 mg PO DAILY [facility] Stop: 02/21/19 08:59 Flecainide Acetate (Tambocor) 100 mg PO BID [facility] Stop: 02/20/19 20:59 Fluticasone Propionate (Flonase) 2 sprays NA DAILY [facility] Stop: 02/21/19 08:59 HCTZ/Losartan Potassium (Hyzaar 50/12.5mg) 1 tab PO DAILY [facility] Stop: 02/21/19 08:59 Magnesium Oxide (Mag-Ox) 400 mg PO DAILY [facility] Stop: 02/21/19 08:59 Potassium Chloride (Klor-Con M10) 10 meq PO DAILY [facility] Stop: 02/21/19 08:59 Warfarin Sodium (Coumadin) 10 mg PO [email or web address]@1600 [facility] Stop: 02/21/19 15:59 Warfarin Sodium (Coumadin) 5 mg PO [email or web address]@1600 [facility] Stop: 02/20/19 15:59 Last Admin: 01/21/19 17:08 Dose: 5 mg Documented by: (1) Atrial flutter Atrial flutter type: unspecified Qualified Code(s): I48.92 - Unspecified atrial flutter
[2019-01-21] MEDS ORDERED: WARFARIN SOD 5 MG TAB PO SCH (16:00)
[2019-01-21] MEDS: FLECAINIDE ACETATE 100 MG TABLET PO SCH (20:18)
[2019-01-21] MEDS ORDERED: Nursing to Pharmacy Communication ONE (20:24)
[2019-01-21] MEDS ORDERED: dilTIAZem HCL 240 MG CAPCR PO SCH (21:00)
[2019-01-22 05:56] LABS: Basophils # (auto) 0.02 K/uL (0-0.2); Basophils % (auto) 0.3 %; Eosinophils # (auto) 0.15 K/uL (0-0.5); Eosinophils % (auto) 2.4 %; Hematocrit (blood only) 49.7 % (42-52); Hemoglobin 17.7 g/dL (14.0-18.0); Immature Granulocytes # (auto) 0.02 K/uL (0.00-0.02); Immature Granulocytes % (auto) 0.3 %; Lymphocytes # (auto) 2.21 K/uL (1.2-3.4); Lymphocytes % (auto) 35.1 %; Mean Corpuscular Hemoglobin 33.9 pg (25-34); Mean Corpuscular Hgb Conc 35.6 g/dL (32-36); Mean Corpuscular Volume 95.2 fL (80-100); Mean Platelet Volume 9.3 fL (7.4-10.4); Monocytes # (auto) 0.81 K/uL (0.11-0.59); Monocytes % (auto) 12.9 %; Neutrophils # (auto) 3.09 K/uL (1.4-6.5); Platelet Count 192 K/uL (130-400); RDW Coefficient of Variation 13.2 % (11.5-14.5); RDW Standard Deviation 45.6 fL (36.4-46.3); Red Blood Count 5.22 M/uL (4.7-6.1)
[2019-01-22 06:28] LABS: BUN Creatinine Ratio 16.9 (10-20); Calcium 9.2 mg/dl (8.5-10.1); Creatinine Clr Calc Pharmacy 133.8 ml/min; Est GFR (African American) 107.2; Est GFR (Non-African American) 92.5; Potassium 4.1 mmol/L (3.5-5.1)
[2019-01-22] MEDS: FLECAINIDE ACETATE 100 MG TABLET PO SCH (07:52)
[2019-01-22] MEDS ORDERED: fentaNYL citrate 100 MCG/2 ML VIAL ONE (08:52)
[2019-01-22] MEDS ORDERED: MIDAZOLAM HCL 1 MG/ML 2ML VIAL ONE (08:52)
[2019-01-22] MEDS ORDERED: FLUTICASONE PROPIONATE NA SPR 16 GM BTL SCH (09:00)
[2019-01-22] MEDS ORDERED: MAGNESIUM OXIDE 400 MG TAB PO SCH (09:00)
[2019-01-22] MEDS ORDERED: POTASSIUM CHLORIDE 10 MEQ TABCR PO SCH (09:00)
[2019-01-22] MEDS ORDERED: LOSARTAN/HCTZ 50/12.5MG TAB PO SCH (09:00)
[2019-01-22] MEDS ORDERED: dilTIAZem HCL 240 MG CAPCR PO SCH (09:00)
--- NOTE | 2019-01-22 09:11 | Pre Anesthesia Assessment ---
Date of Service January 22, 2019 Pre Sedation Assessment Vital Signs Temp Pulse Pulse Resp BP BP Pulse Ox 01/22/19 09:01 111 H 20 151/110 H 97 01/22/19 07:51 36.6 C 112 H 18 143/88 H 95 01/22/19 04:37 36.5 C 108 H 20 138/77 96 01/21/19 23:43 36.8 C 108 H 18 128/91 96 01/21/19 23:00 107 H 01/21/19 20:24 36.6 C 111 H 16 142/86 H 95 01/21/19 14:54 36.7 C 106 H 16 139/65 95 01/21/19 14:23 96 01/21/19 14:00 107 H 20 01/21/19 13:31 96 H 25 H 01/21/19 13:30 94 H 17 198/122 H 01/21/19 13:01 84 22 01/21/19 13:00 105 H 19 133/105 H 01/21/19 12:31 96 H 16 01/21/19 12:30 95 H 19 144/100 H 01/21/19 12:08 96 01/21/19 12:05 102 H 25 H 01/21/19 12:00 102 H 19 154/98 H 94 01/21/19 11:31 102 H 21 96 01/21/19 11:30 82 15 154/102 H 95 01/21/19 11:01 87 19 96 01/21/19 11:00 87 19 149/107 H 96 01/21/19 10:27 96 01/21/19 10:07 36.7 C 94 H 19 180/86 H 95 Pre-Sedation Airway Assessment Smoking Status: Former smoker Hx Sleep Apnea: Yes Short, Thick Neck: Yes Thyromental Distance: < 3.5 Finger Breadths Oral Cavity: + WNL Mallampati Class: I ASA: ASA3 NPO Status Date of Last Intake of Fluids: 01/22/19 Time of Last Intake of Fluids: 07:00 Last Oral Intake of Fluids Comment: sip with meds Date of Last Intake of Solid Food: 01/21/19 Time of Last Intake of Solid Foods: 16:00 Notes The planned sedation has been discussed with the patient. Informed Consent was obtained. I have identified the patient, determined the appropriateness of sedation and have assessed the patient immediately prior to the procedure. All medicine(s) and interventions are by my order.
--- NOTE | 2019-01-22 09:46 | Post Anesthesia Assessment ---
Date of Service January 22, 2019 Post Sedation Assessment Vital Signs Temp Pulse Pulse Resp BP BP Pulse Ox 01/22/19 09:40 63 16 122/90 96 01/22/19 09:38 107 H 18 128/95 92 01/22/19 09:35 105 H 18 139/102 H 93 01/22/19 09:33 104 H 20 155/102 H 95 01/22/19 09:31 106 H 20 159/99 H 94 01/22/19 09:30 107 H 18 150/104 H 94 01/22/19 09:01 111 H 20 151/110 H 97 01/22/19 07:51 36.6 C 112 H 18 143/88 H 95 01/22/19 04:37 36.5 C 108 H 20 138/77 96 01/21/19 23:43 36.8 C 108 H 18 128/91 96 01/21/19 23:00 107 H 01/21/19 20:24 36.6 C 111 H 16 142/86 H 95 01/21/19 14:54 36.7 C 106 H 16 139/65 95 01/21/19 14:23 96 01/21/19 14:00 107 H 20 01/21/19 13:31 96 H 25 H 01/21/19 13:30 94 H 17 198/122 H 01/21/19 13:01 84 22 01/21/19 13:00 105 H 19 133/105 H 01/21/19 12:31 96 H 16 01/21/19 12:30 95 H 19 144/100 H 01/21/19 12:08 96 01/21/19 12:05 102 H 25 H 01/21/19 12:00 102 H 19 154/98 H 94 01/21/19 11:31 102 H 21 96 01/21/19 11:30 82 15 154/102 H 95 01/21/19 11:01 87 19 96 01/21/19 11:00 87 19 149/107 H 96 01/21/19 10:27 96 01/21/19 10:07 36.7 C 94 H 19 180/86 H 95 Recovery Score Activity: Moves 4 extremities Respiration: Deep Breath/Cough Circulation: +/-20% PreAnes Value Consciousness: Arouseable (by name) Oxygen Saturation: O2 needed for >90% Post Anesthesia Score: 8 Discharge Sedation Level of Care: Fast Track Phase II Post Sedation Plan On clinical assessment, the patient appears to have tolerated the sedation without complications. Patient is recovering as anticipated. Patient will continue to be monitored by nursing and may be discharged when sedation discharge criteria are met per below protocol. Upon Completions of procedure up to 15 minutes continue every 5 minute vital signs and the P.A.R. score; then discharge to a Phase I or Fast Track to Phase II per the following guidelines: * Discharge Patient to appropriate Phase II area if PAR is 8 or greater or return to pre- procedure baseline. The post - procedure orders will be as directed. * If PAR score is less than 8 or not return to pre-procedure baseline then patient will follow Phase I monitoring till PAR is reached for Phase II. The Phase I may be done in procedure room or may call to secure a Phase I area. * If naloxone or flumazenil are used for reversal, hold in Phase I for continued monitoring from when last reversal dose was given for a minimum of 60 minutes or longer pending the nurse and/or physician discretion of patient condition before discharge to Phase II. Please call the Sedation Physician to re-evaluate and complete post-note for discharge to Phase II area. Do NOT discharge from procedure sedation or Phase 1 until post- sedation evaluation note is complete by procedure /sedation MD Sedation Discharge Instructions to be given to the patient at discharge to home.
--- NOTE | 2019-01-22 09:48 | Operative Report ---
Post Operative Report Pre & Post Diagnosis Operation Date: 01/22/19 09:00 <No data on this case meets the specified criteria> I identified the patient and participated in the time-out.: Yes Procedure Operation Date: 01/22/19 09:00 <No data on this case meets the specified criteria> Surgeon Kelvin Govea DO Watch Parts Inspector Alisha ESPINAL Estimated Blood Loss 0 Findings Consistent with Post-Op Diagnosis Specimens none Description of Procedure Informed consent obtained Pt prepped adequate moderate sedation achieved with Versed 4 mg and Fentanyl 125 mcg 360J of synchronized energy delivered with successful cardioversion to sinus rhythm tolerated well recover per protocol informed will return to tele and likely D/C this PM I attest to the content of the Intraoperative Record and any orders documented therein. Any exceptions are noted below.
--- NOTE | 2019-01-22 10:05 | Cardiology Progress Note ---
Date of Service January 22, 2019 Assessment & Plan (1) Atrial flutter: Asymptomatic. Given the pattern on EKG and the fact that his atrial rate is less than 300 I do not believe that this is trach caval isthmus flutter but more likely a left- sided flutter secondary to his multiple PVI's. However, this is the exact same pattern as his last presentation in 2018 and he was successfully cardioverted at that time. Underwent successful DC cardioversion this a.m. and is currently back in normal sinus rhythm. No medication changes will be made at this time, which is his preference and will arrange outpatient follow-up with electrophysiology to discuss further options. It is okay to discharge patient to home later this p.m. from a cardiac standpoint (2) Atrial fibrillation with rapid ventricular response: Status post PVI x2 (3) Tachycardia induced cardiomyopathy: Resolved with judaism of sinus rhythm in the past (4) RAFAEL (obstructive sleep apnea): Continue CPAP Subjective Patient seen and examined prior to and after cardioversion. States that he has had an uneventful night and remains symptom-free. Despite remaining in atrial flutter he denies any chest pain, shortness of breath, palpitations, lightheadedness, dizziness or syncope. Telemetry reviewed: Atrial flutter with variable AV conduction ranging from 100 to 120 bpm Review of Systems Review of Systems: All systems reviewed & are unremarkable except as noted in HPI & below Physical Exam Physical Exam: General: Awake, alert and oriented x 3. No acute distress. HEENT: Normocephalic, atraumatic. Pupils equal, round and reactive to light and accommodation. Extraocular muscles are intact. Anicteric sclera. Moist mucous membranes. Neck: No JVD. No bruit. Cardiovascular: Regular. Positive S-4. Normal S-1 and S-2. No S-3. 3/6 holosystolic ejection murmur, left sternal border, mid-clavicular line with radiation to the axilla. No rubs. Pulmonary: Clear to auscultation bilaterally. No rales, rhonchi, or wheezing. Abdomen: Bowel sounds x 4, soft. No rebound, guarding or tenderness. No organomegaly. Extremities: No clubbing, cyanosis or edema. +2 pedal pulses bilaterally. Skin: Warm and dry. Results & Data Vital Signs (Past 12 Hours) Vital Signs Temp Pulse Pulse Resp BP Pulse Ox 01/22/19 09:57 70 20 157/84 H 94 01/22/19 09:50 69 20 131/97 95 01/22/19 09:40 63 70 16 122/90 96 01/22/19 09:38 107 H 18 128/95 92 01/22/19 09:35 105 H 18 139/102 H 93 01/22/19 09:33 104 H 20 155/102 H 95 01/22/19 09:31 106 H 20 159/99 H 94 01/22/19 09:30 107 H 18 150/104 H 94 01/22/19 09:01 111 H 20 151/110 H 97 01/22/19 07:51 36.6 C 112 H 18 143/88 H 95 01/22/19 04:37 36.5 C 108 H 20 138/77 96 01/21/19 23:43 36.8 C 108 H 18 128/91 96 01/21/19 23:00 107 H Laboratory Results Laboratory Results - last 24 hr 01/21/19 01/21/19 01/21/19 10:20 10:20 10:20 WBC 6.01 RBC 5.08 Hgb 17.3 Hct 48.5 MCV 95.5 MCH 34.1 H MCHC 35.7 RDW Std Deviation 45.2 RDW Coeff of Cindy 13.1 Plt Count 214 MPV 10.3 Immature Gran % (Auto) 0.3 Neut % (Auto) 50.8 Lymph % (Auto) 34.8 Fergus % (Auto) 11.0 Eos % (Auto) 2.8 Baso % (Auto) 0.3 Immature Gran # (Auto) 0.02 Neut # (Auto) 3.05 Lymph # (Auto) 2.09 Fergus # (Auto) 0.66 H Eos # (Auto) 0.17 Baso # (Auto) 0.02 PT 20.6 H INR 2.1 H Sodium 134 L Potassium 4.3 Chloride 102 Carbon Dioxide 26 Anion Gap 6.0 BUN 11 Creatinine 0.89 Est Cr Clr Drug Dosing 128.5 Est GFR ( Amer) 104.7 Est GFR (Non-Af Amer) 90.4 BUN/Creatinine Ratio 12.1 Glucose 114 H Calcium 9.1 Magnesium 2.2 Total Bilirubin 0.9 AST 19 ALT 30 Alkaline Phosphatase 83 Troponin I < 0.015 Total Protein 8.3 H Albumin 4.2 Globulin 4.1 H Albumin/Globulin Ratio 1.0 01/22/19 01/22/19 05:44 05:44 WBC 6.30 RBC 5.22 Hgb 17.7 Hct 49.7 MCV 95.2 MCH 33.9 MCHC 35.6 RDW Std Deviation 45.6 RDW Coeff of Cindy 13.2 Plt Count 192 MPV 9.3 Immature Gran % (Auto) 0.3 Neut % (Auto) 49.0 Lymph % (Auto) 35.1 Fergus % (Auto) 12.9 Eos % (Auto) 2.4 Baso % (Auto) 0.3 Immature Gran # (Auto) 0.02 Neut # (Auto) 3.09 Lymph # (Auto) 2.21 Fergus # (Auto) 0.81 H Eos # (Auto) 0.15 Baso # (Auto) 0.02 PT INR Sodium 133 L Potassium 4.1 Chloride 102 Carbon Dioxide 24 Anion Gap 7.0 BUN 14 Creatinine 0.84 Est Cr Clr Drug Dosing 133.8 Est GFR ( Amer) 107.2 Est GFR (Non-Af Amer) 92.5 BUN/Creatinine Ratio 16.9 Glucose 106 H Calcium 9.2 Magnesium Total Bilirubin AST ALT Alkaline Phosphatase Troponin I Total Protein Albumin Globulin Albumin/Globulin Ratio Medications Administered Current Inpatient Medications Diltiazem HCl (Cardizem Cd) 240 mg PO HS YOBANI Stop: 02/20/19 20:59 Last Admin: 01/21/19 21:38 Dose: 240 mg Documented by: Flecainide Acetate (Tambocor) 100 mg PO BID YOBANI Stop: 02/20/19 20:59 Last Admin: 01/22/19 07:52 Dose: 100 mg Documented by: Fluticasone Propionate (Flonase) 2 sprays NA DAILY YOBANI Stop: 02/21/19 08:59 HCTZ/Losartan Potassium (Hyzaar 50/12.5mg) 1 tab PO DAILY YOBANI Stop: 02/21/19 08:59 Last Admin: 01/22/19 07:53 Dose: 1 tab Documented by: Magnesium Oxide (Mag-Ox) 400 mg PO DAILY YOBANI Stop: 02/21/19 08:59 Last Admin: 01/22/19 07:53 Dose: 400 mg Documented by: Potassium Chloride (Klor-Con M10) 10 meq PO DAILY [facility] Stop: 02/21/19 08:59 Last Admin: 01/22/19 07:53 Dose: 10 meq Documented by: Warfarin Sodium (Coumadin) 10 mg PO [email or web address]@1600 [facility] Stop: 02/21/19 15:59 Warfarin Sodium (Coumadin) 5 mg PO SuTuThSa@1600 [facility] Stop: 02/20/19 15:59 Last Admin: 01/21/19 17:08 Dose: 5 mg Documented by: (1) Atrial flutter Atrial flutter type: unspecified Qualified Code(s): I48.92 - Unspecified atrial flutter
--- NOTE | 2019-01-22 13:58 | Discharge Summary ---
Date of Service January 22, 2019 Admission HPI Per Admitting Provider Is a 63-year-old obese male with significant past medical history of atrial fibrillation/flutter and has had ablation surgery and has been on flecainide, hypertension, non-symptomatic carotid stenosis, obstructive sleep apnea on CPAP and controlled asthma has been complaining of increasing heart rate since last evening. He noted to have increasing heart rate and his watch and he was feeling some dizziness with ambulation. He has been on flecainide 100 mg twice daily to control his atrial flutter but was advised to take care to extend tablets in case and the rate is high. On top of his usual dose of flecainide he took 200 mg extra dose at around 10:30 PM last night. This morning his heart rate remains elevated more than 100 and he was still having some discomfort especially dizziness with ambulation but denies any other symptoms of palpitation, shortness of breath, chest pain, abdominal pain nausea and/or vomiting. Denies any problem with his urine and her bowel habit. No numbness and/or tingling in the extremities. He was noted to be in atrial flutter with a rate of 87 in the emergency room and his relevant blood test came out to be unremarkable and INR was 2.1. Dr. Govea was informed and he will have an elective cardioversion tomorrow. Admission Exam Per Admitting Provider Physical Exam: No apparent distress at rest but anxious Constitutional: well developed, well nourished, + ill appearing and + obese; no acute distress Eyes: PERRL, conjunctivae normal, anicteric sclerae ENMT: external ear and nose normal, oropharynx normal Neck: trachea midline, no thyromegaly Respiratory: normal respiratory effort; no respiratory distress Auscultation: lungs clear to auscultation bilaterally Cardiovascular: Rate/Rhythm: + abnormal rate and + abnormal rhythm Heart Sounds: no murmur Gastrointestinal (Abdomen): Inspection/Auscultation: abdomen normal to inspection and normal bowel sounds Percussion/Palpation: abdomen soft; abdomen nontender Musculoskeletal: No acute arthritis in any joints Neurologic: moves all extremities; no focal motor deficits Psychiatric: A+Ox3, euthymic affect Lymphatic: no cervical or axillary lymphadenopathy Principal Diagnosis atrial flutter s/p DC cardioversion Discharge Exam CONSTITUTIONAL: WNWD, vitals as above, generally well-appearing EYES: EOMI bilaterally, PERRL, normal conjuctivae, no scleral icterus, no fundoscopic abnormality ENT: external ear and nose normal, oropharynx clear, no TM abnormality, no maxillary or ethmoid sinus tenderness NECK: trachea midline, no lymphadenopathy, normal thyroid RESPIRATORY: clear to auscultation bilaterally, no crackles, rales or wheezes, normal respiratory effort CARDIOVASCULAR: regular rate and rhythm, S1 and 2 heard without murmurs, gallops or rubs, no JVD, no peripheral edema, no carotid bruits CHEST: inspection of chest was normal (+pacemaker, +port) GASTROINTESTINAL: normal bowel sounds, soft, nontender, no hepatomegaly, no guarding MUSCULOSKELETAL: strength 5/5 throughout, head is normocephalic and atraumatic, neck supple, normal palpation of chest wall without tenderness SKIN: warm and dry, no rashes NEUROLOGIC: patellar [id number] 2+ bilat. PERRL, EOMI, no facial palsy, no dysarthria. Touch, pain and proprioception normal. CN 2-12 grossly intact, no sensory deficit, normal cognition, normal speech, no tremor PSYCHIATRIC: alert cooperative and oriented to person, place and time. Euthymic mood, makes good eye contact, language grossly intact, recent and remote memory grossly intact. LYMPHATIC: no LAD Discharge Data Allergies Allergy/AdvReac Type Severity Reaction Status Date / Time allopurinol Allergy Unknown hives Verified 01/21/19 11:33 PADMINI Inhibitors AdvReac Unknown cough Verified 01/21/19 11:33 Consultations 01/21/19 13:16 ED Decision to Admit Stat 01/22/19 08:53 Consult Cardiology Routine Procedures Performed Operation Date: 01/22/19 09:00 Actual Procedures p Cardioversion - Kelvin Govea DO [facility] (1) Atrial flutter: 63-year-old man with a history of atrial fibrillation presented after noting an increased heart rate on his Fitbit watch that was associated with some dizziness with ambulation. He was admitted to the hospitalist service and cardiology was consulted. EKG revealed atrial flutter. He underwent a successful DC cardioversion the following morning to sinus rhythm. No medication changes were made at time of discharge which was his preference, and outpatient follow-up with electrophysiology is recommended to discuss further options. At time of discharge he was hemodynamically stable and afebrile and tolerating p.o. He was mentating and ambulating at baseline. Physical exam revealed normal ENT exam, no bruits of the neck, regular rate and rhythm on heart auscultation, S1-S2 heard, 3/6 systolic ejection murmur, clear lungs, auscultation bilaterally, a soft nontender nondistended abdomen, warm and well- perfused extremities with warm and dry skin. He was discharged in stable condition with close primary care follow-up recommended. Total Time Total Time Spent Total Time Spent (In Minutes): 60 Discharge Plan Discharge Items Patient Disposition: Home - Self-Care Reason For Visit: A FLUTTER Discharge Diagnosis: atrial flutter s/p DC cardioversion Condition on Discharge: Good Activity: Resume your previous activity Non-emergency contact: Primary Care Provider Call non-emergency contact if: you have any medication questions, your symptoms worsen, your pain is not controlled, your pain is worsening, your pain is unusual for you, your pain is concerning for you and you have a fever Follow-up/Referrals: Jarrett Doan DO [Primary Care Provider] - Diet: Low Sodium (2gm) Addtl Attending Provider Instructions: Please take all medications as instructed on discharge list below. Please have your INR checked on Sunday to ensure you are at goal INR 2-3. It is recommended that you follow-up with your primary care physician within the next week to ensure you are still doing well. 01/24/2019 11:20 AM Jarrett Doan DO General Internal Medicine [facility] Please followup with Dr. Song as instructed by the Pie Filler. 02/19/2019 9:00 AM Deric Song MD Cardiology, [facility] It was a pleasure taking care of you! Please call if you have any questions or problems. You can reach a [facility] hospitalist on duty at [facility] 24 hours a day by calling [phone]. Take care of yourself. Genia Baxter DO [facility] Hospitalist Pending Studies at Discharge: No Stand-Alone Forms: [facility], Smoking Cessation Medications and DC Order Prescriptions: Continued diltiazem HCl [Cartia XT] 240 mg capsule,extended release 24hr 240 mg PO HS RF: 0 potassium chloride 10 mEq Tablet Extended Release 10 meq PO DAILY RF: 0 fexofenadine 180 mg Tablet 180 mg PO DAILY RF: 0 losartan-hydrochlorothiazide 100-25 mg tablet 1 tab PO DAILY RF: 0 warfarin 5 mg tablet 10 mg PO 3XWK RF: 0 warfarin 5 mg tablet 5 mg PO 4XWK RF: 0 flecainide 100 mg tablet 100 mg PO BID RF: 0 fluticasone propionate 50 mcg/actuation spray,suspension 2 spray INTRANASAL DAILY RF: 0 magnesium 30 mg Tablet 665 mg PO DAILY RF: 0 omega 1-qcx-xta-fish oil [Fish Oil] 1,000 mg (120 mg-180 mg) Capsule 1,000 cap PO DAILY RF: 0 turmeric root extract 500 mg Capsule 500 mg PO DAILY RF: 0 Discharge Orders: Discharge Order (Routine); Ordered 01/22/19 Ordered By: Genia Shah/Other Patient Handouts: Hypertension Control, AFL/Afib Admission Data Admit Date/Time: 01/21/19 13:46 Attending Provider: Genia Baxter Admit Provider: Osman Fajardo Primary Care Provider: Jarrett Doan Other Providers: Osman Fajardo ; Kelvin Govea Other Interventions: Discharge Summary Assessment (RN) Last Done: 01/22/19 14:11 DC Date/Time DO NOT enter until pt leaves facility: 01/22/19 14:48
[2019-01-22] MEDS ORDERED: WARFARIN SOD 10 MG TAB PO SCH (16:00)
== END 2019-01-22 14:48 | disposition home or self-care (01) ==
LOC: ED 10:03 → 2S 10:03 → SUATTDRO 13:46 → 2S 14:23

== ENCOUNTER 2019-04-01 11:42 | Inpatient (IN) ==
--- OUTSIDE RECORDS SUMMARY | 2019-04-01 11:44 | External Medical Summary | Continuity of Care Document ---
:1955 Author Name Yoil Mclaughlin, Provider Address Unavailable Unavailable , Care Team Providers Name Role Phone Unavailable Unavailable Unavailable Bernardo Mclaughlin, [email or web address] SHASHI BARROW Unavailable Unavailable Unavailable Unavailable Unavailable Problems Neoplasm of uncertain behavior of skin (238.2) (D48.5) Tinea versicolor (111.0) (B36.0) Actinic keratosis (702.0) (L57.0) Allergies and Adverse Reactions PADMINI Inhibitors (Allergy) Colchicine TABS (Allergy) Medications Flecainide Acetate TABS , M.D. Refills: 0 Mometasone Furoate 0.1 % External Ointme nt; APPLY SPARINGLY TO AFFECTED AREA(S) ONCE DAILY Arnoldo Chang Start: 16-Jun-2014 Quantity: 1 15 GM Tube Refills: 3 Nasonex 50 MCG/ACT Nasal Suspension , M.DValentino Refills: 0 Cozaar 100 MG Oral Tablet; TAKE 1 TABLET DAILY. , M.DValentino Refills: 0 Probiotic Daily Oral Capsule; USE DIRECTED. Arnoldo Start: 05-Oct-2015 Refills: 0 Osteo Bi-Flex Regular Strength TABS , M.DValentino Refills: 0 Coumadin 5 MG Oral Tablet , M.DValentino Refills: 0 Mometasone Furoate 0.1 % External Ointme nt; APPLY SPARINGLY TO AFFECTED AREA(S) ONCE DAILY Arnoldo Chang Start: 04-May-2015 Quantity: 1 15 GM Tube Refills: 3 DilTIAZem CD 240 MG CP24; TAKE 1 CAPSULE DAILY. Arnoldo Start: 15-Oct-2014 Refills: 0 Fluorouracil 5 % External Cream; APPLY A THIN LAYER TO AFFECTED AREA(S) TWICE DAILY. Arnoldo Chang Start: 06-Mar-2016 Quantity: 1 40 GM Tube Refills: 0 Selenium Sulfide 2.5 % External Lotion; USE DIRECTE D ON PACKAGE Arnoldo Chang Start: 06-Mar-2016 Quantity: 1 120 ML Bottle Refills: 6 Procedures Procedures not documented Immunizations Immunizations not documented Social History - Smoking Status Never smoker Plan of Treatment Planned Observations Planned Goals not documented Results No Known Results Results not documented
[2019-04-01] MEDS ORDERED: ASPIRIN CHEW 324 MG PO STA (12:16)
[2019-04-01 13:12] LABS: Basophils # (auto) 0.02 K/uL (0-0.2); Basophils % (auto) 0.3 %; Eosinophils # (auto) 0.08 K/uL (0-0.5); Eosinophils % (auto) 1.2 %; Hematocrit (blood only) 49.2 % (42-52); Hemoglobin 17.7 g/dL (14.0-18.0); Immature Granulocytes # (auto) 0.01 K/uL (0.00-0.02); Immature Granulocytes % (auto) 0.1 %; Lymphocytes # (auto) 1.97 K/uL (1.2-3.4); Lymphocytes % (auto) 29.5 %; Mean Corpuscular Hemoglobin 34.2 pg (25-34); Mean Platelet Volume 10.5 fL (7.4-10.4); Monocytes # (auto) 0.71 K/uL (0.11-0.59); Monocytes % (auto) 10.6 %; Neutrophils # (auto) 3.88 K/uL (1.4-6.5); Neutrophils % (auto) 58.3 %; Platelet Count 247 K/uL (130-400); RDW Coefficient of Variation 12.9 % (11.5-14.5); RDW Standard Deviation 44.7 fL (36.4-46.3); Red Blood Count 5.18 M/uL (4.7-6.1); White Blood Count 6.67 K/uL (4.8-10.8)
[2019-04-01 13:17] LABS: Blood Urea Nitrogen 13 mg/dl (7-18); Calcium 9.2 mg/dl (8.5-10.1); Carbon Dioxide 25 mmol/L (21-32); Chloride 102 mmol/L (98-107); Creatinine Clr Calc Pharmacy 135.3 ml/min; Est GFR (African American) 107.2; Est GFR (Non-African American) 92.5; Glucose 103 mg/dl (70-99); Lipase 81 U/L (73-393); Potassium 3.9 mmol/L (3.5-5.1); Sodium 134 mmol/L (136-145)
[2019-04-01] MEDS: dilTIAZem HCL 125 MG in DEXTROSE 5% 100 ML IV SCH (13:22)
[2019-04-01 13:25] LABS: Troponin I < 0.015 ng/ml (0-0.045)
[2019-04-01 13:26] LABS: INR 2.8 (0.9-1.1); Partial Thromboplastin Ratio 1.4; Partial Thromboplastin Time 37.9 Seconds (21.0-31.0); Prothrombin Time 26.6 Seconds (9.0-12.0)
[2019-04-01] MEDS ORDERED: ACETAMINOPHEN 325 MG TAB PO PRN (14:41)
--- NOTE | 2019-04-01 15:13 | History & Physical Report ---
Date of Service April 01, 2019 Assessment & Plan (1) Atrial fibrillation with RVR: -Admit to telemetry -Patient presenting from home after his FitBit watch alerted him that his heart rate was in the 120s -History of atrial fibrillation and atrial flutter, s/p 2 PVI ablations and multiple cardioversions, most recently being 01/2019 -Patient is asymptomatic -In the ED, heart rate in the 120s -Cardiology consulted by ED provider who recommended Cardizem drip. Patient's heart rate has improved while on Cardizem drip. -Planning on possible cardioversion in a.m.; n.p.o. after midnight -Anticoagulated on Coumadin, INR 2.8 -Currently on Cardizem drip, will continue and hold a.m. dose of oral Cardizem; continue flecainide -Cardiology consult, input appreciated (2) HTN (hypertension): -BP controlled, continue losartan/HCTZ -On Cardizem drip as above (3) RAFAEL (obstructive sleep apnea): -CPAP as per home settings (4) DVT prophylaxis: -Anticoagulated on Coumadin, INR 2.8 History of Present Illness Chief Complaint: Palpitations Primary Care Provider: Jarrett Doan, 63 year old male who presents to the ED for evaluation of palpitations and high heart rate. Patient has history of atrial fibrillation and atrial flutter s/p ablation x 2 and multiple cardioversions, most recently being 01/2019. Patient reports that two night ago he felt some palpitations and his FitBit watch showed his HR to be in the 120s. 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 The following morning patient reports his heart rate was in the 60s. This morning patient's watch told him his HR was in the 120s. He was asymptomatic. He then presented to the ED for further evaluation. Patient reports he otherwise has been feeling well recently. No fevers or chills. Denies chest pain and shortness of breath. No lightheadedness, dizziness, diaphoresis, syncopal events. He denies abdominal pain, nausea, vomiting, diarrhea. No urinary symptoms. In the ED, patient is found to be in atrial fibrillation with RVR with heart rates in the 120s. Cardiology was contacted by ED who recommended diltiazem drip. Patient has had improvement in heart rate. Labs are unremarkable. Allergies Allergy/AdvReac Type Severity Reaction Status Date / Time allopurinol Allergy Unknown hives Verified 04/01/19 13:41 PADMINI Inhibitors AdvReac Unknown cough Verified 04/01/19 13:41 Home Medications Home Medications Medication Instructions Recorded Confirmed Type diltiazem HCl [Cartia XT] 240 mg PO HS 01/21/19 04/01/19 History fexofenadine 180 mg PO DAILY 01/21/19 04/01/19 History flecainide 100 mg PO BID 01/21/19 04/01/19 History fluticasone propionate 2 spray INTRANASAL DAILY 01/21/19 04/01/19 History losartan-hydrochlorothiazide 1 tab PO DAILY 01/21/19 04/01/19 History magnesium 665 mg PO DAILY 01/21/19 04/01/19 History omega 9-wwy-fgb-fish oil [Fish Oil] 1,000 cap PO DAILY 01/21/19 04/01/19 History potassium chloride 10 meq PO DAILY 01/21/19 04/01/19 History turmeric root extract 500 mg PO DAILY 01/21/19 04/01/19 History warfarin 5 mg PO SUTUWETHSA 01/21/19 04/01/19 History warfarin 10 mg PO MOFR 01/21/19 04/01/19 History Past Med/Surg History Medical History Atrial flutter Chronic allergic conjunctivitis (Chronic 06/04/11) HTN (hypertension) Intermittent asthma (Chronic 06/04/11) RAFAEL (obstructive sleep apnea) Persistent atrial fibrillation 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 Surgical History History of cataract surgery History of total left knee replacement History of total right knee replacement S/P ablation of atrial fibrillation PVI ablation in 2007 and 2011, post PVI atrial flutter in 2018 and 2019 Family History Mother Cancer Social History Preferred Language: Ivorian Communication Ability: Effective 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 Graff's addendum for physical exam Results & Data Vital Signs (Past 12 Hours) Vital Signs Temp Pulse Resp BP Pulse Ox 04/01/19 13:46 102 H 23 172/132 H 95 04/01/19 13:45 110 H 20 96 04/01/19 13:31 109 H 19 116/79 95 04/01/19 13:30 109 H 16 95 04/01/19 13:27 102 H 15 131/96 94 04/01/19 13:15 87 16 125/90 96 04/01/19 13:01 92 H 17 95 04/01/19 13:00 101 H 19 122/99 95 04/01/19 12:45 88 20 140/85 94 04/01/19 12:30 96 H 17 132/88 95 04/01/19 12:15 94 H 17 180/105 H 95 04/01/19 12:06 101 H 18 155/105 H 95 04/01/19 11:44 36.6 C 129 H 20 124/83 96 Laboratory Results Short CBC 04/01/19 Range/Units 12:07 WBC 6.67 (4.8-10.8) K/uL Hgb 17.7 (14.0-18.0) g/dL Hct 49.2 (42-52) % Plt Count 247 (130-400) K/uL BMP 04/01/19 12:07 Sodium 134 L Potassium 3.9 Chloride 102 Carbon Dioxide 25 BUN 13 Creatinine 0.84 Glucose 103 H Calcium 9.2 Cardiac Enzymes 04/01/19 Range/Units 12:07 Troponin I < 0.015 (0-0.045) ng/ml Diagnostic Findings CXR IMPRESSION: No acute process. Code Status & VTE Plan VTE Prophylaxis Plan VTE Prophylaxis will be ordered: No Supervising Physician Co-Signing Physician Notes 63-year-old man with history of atrial flutter, fibrillation, hypertension, asthma, RAFAEL who presented for palpitation and elevated heart rate. History and physical exam performed by me. Detailed history as documented by Misa SALAMANCA. History notable for history of A. fib and a flutter status post ablation x2, most recent in January 2019, report of palpitation on Sunday night with Fitbit watch showing heart rate in 120s for which patient took extra 2 tablets of flecainide with resolution, another episode of heart rate being elevated on patient's watch today necessitating presentation to the ER. On physical exam, General: Well nourished, well hydrated ,average body habitus, no acute distress and not ill appearing Eyes: PERRL, conjunctivae normal, not pale, anicteric sclerae, EOM intact bilaterally ENMT: External ear and nose normal, oropharynx normal Neck: Normal visual inspection, no tracheal deviation, no swelling noted Respiratory: Normal respiratory effort, no respiratory distress, lungs clear to auscultation, no crackles and no wheezes Cardiovascular: Pulse is irregularly irregular. S1 S2; no murmurs. no pedal edema Chest (Breasts): Chest: normal inspection of chest Gastrointestinal (Abdomen): Abdomen is not distended, soft, non-tender to palpation, no guarding, no palpable hepatosplenomegaly, normal bowel sounds Musculoskeletal: No cyanosis or clubbing, all extremities motor strength 5/5 Genitourinary: No CVA tenderness Skin: No rash noted on gross inspection, No ulcers noted Neurologic: Alert and oriented x 3, No focal weakness, sensation grossly intact Psychiatric: Euthymic affect, normal judgement EKG shows atrial flutter, rate of 116, QRS of 102, QTc of 1417, no ST-T changes INR is 2.8 Troponin is less than 0.015 Chest x-ray is unremarkable Atrial flutter with RVR Patient ID has history of PVI x2 and cardioversions. Currently on Cardizem drip. Continue flecainide We will continue this for now. Appreciate cardiology consult. N.p.o. past midnight for possible cardioversion Other plans as stated above by Misa SALAMANCA
--- NOTE | 2019-04-01 15:43 | XRay Report ---
XR chest 1V portable HISTORY: Atypical Chest Pain COMPARISON: Chest 01/21/2019. FINDINGS: The heart remains top normal in size. No pleural effusions. No pneumothorax. No focal lung consolidations to suggest pneumonia. No evidence for pulmonary edema. IMPRESSION: No acute process. ACT 112: Negative or not required by law. Electronically signed by: Kvng Fontanez M.D. 04/01/2019 3:41 PM
[2019-04-01] MEDS ORDERED: WARFARIN SOD 5 MG TAB PO SCH (16:00)
--- NOTE | 2019-04-01 16:12 | Cardiology Consultation ---
Date of Consultation April 01, 2019 Assessment & Plan (1) Atrial flutter: Atypical Asymptomatic This is now the patient's third episode of atrial flutter, unfortunately, episodes appear to be occurring more frequently now. His INR is been therapeutic for several months so we will proceed with DC cardioversion in the a.m. Long-term follow-up would then be recommended to be evaluated by electrophysiology at [place] for possible atrial flutter ablation. The patient has had 2 PVI's in the past but never in atrial flutter ablation attempted. Given that this is now his third episode despite antiarrhythmic therapy I believe this would be the most prudent course of action, and the patient agrees. He will be made n.p.o. after midnight His outpatient medical regimen will be continued with the exception of his Cardizem being changed to a drip for better rate control overnight, will likely change to p.o. after cardioversion in the a.m. (2) Atrial fibrillation with RVR: Patient is actually not been in atrial fibrillation for some time now. (3) RAFAEL (obstructive sleep apnea): Continue CPAP therapy (4) HTN (hypertension): We will hold off on medication adjustments until rates improved. History of Present Illness Reason for Consultation: Atrial flutter with rapid ventricular response Attending Physician: Perri Westfall MD History of Present Illness It was my pleasure to see Mr. Mendoza in consultation today April 01, 2019. He is a very pleasant 63-year-old gentleman who is well-known to our cardiology practice for his history of atrial arrhythmias. He presents to [facility] With complaints of 2 days worth of elevated heart rates. As per his previous presentation in January, he felt his heart racing but his Fitbit told him that his heart rate was elevated in the 120s. As previously instructed he took higher dose of flecainide, 200 mg at once and his heart rate subsequently went back into the 60s. Unfortunately, his heart rates remain elevated on his Fitbit he came into the ER and was found to be in atrial flutter once again. Clinically states he is feeling okay. He does not really feel as though he is an arrhythmia he denies any chest pain, shortness of breath, palpitations, lightheadedness, dizziness or syncope. He is been take his medications as directed and his INR has been therapeutic for several months now through the outpatient [facility] clinic. He is also been compliant with his flecainide and Cardizem. [facility] [place] [address] Cardiology Consultation Signed Patient: DAVID MENDOZA Date: 01/21/19 MR#: [id number] Phy: Osman Fajardo MD Acct ID:[id number] Phy: FrankiJarrettDO Valentino Date: 1955Fam Phy: Age: 63Location: 2S Sex: M Room/Bed: S229-2 cc: ~ *NOTICE TO RECEIVING DEMOCRAT/AGENCY This information is strictly Confidential and protected under [place] law. [place] law prohibits you from making any further disclosure of this information unless further disclosure is expressly permitted by the written consent of the person to whom it pertains or is authorized by law. A general authorization for the release of medical or other information is not sufficient for this purpose. Hospital accepts no responsibility if the information is made available to any other person, INCLUDING THE PATIENT. Date of Consultation January 21, 2019 Assessment & Plan (1) Atrial flutter: Asymptomatic. Given the pattern on EKG and the fact that his atrial rate is less than 300 I do not believe that this is trach caval isthmus flutter but more likely a left- sided flutter secondary to his multiple PVI's. However, this is the exact same pattern as his last presentation in 2018 and he was successfully cardioverted at that time and I believe he will likely be able to cardiovert to normal sinus rhythm again at this time. Likely his INR is been therapeutic for quite some time now so I do not believe a PATRIZIA is necessary. Therapeutic options including DC cardioversion for taoism of sinus rhythm versus rate control were discussed with the patient and his a great length today. They would like to proceed with DC cardioversion in the a.m. and then follow-up with Dr. linares to discuss possible options going forward. He does have a long history of difficulty with antiarrhythmic medications and he believes he is intolerant to metoprolol as well so I will hold off any medication changes at this time and will defer that to our electrophysiology colleagues. He will be made n.p.o. after midnight and continued on his normal outpatient medical regimen. They are also counseled that should the cardioversion not be successful then rate controlling agents will be adjusted and he will follow-up with electrophysiology at that time. (2) Atrial fibrillation with rapid ventricular response: Status post PVI x2 (3) Tachycardia induced cardiomyopathy: Resolved with taoism of sinus rhythm in the past (4) RAFAEL (obstructive sleep apnea): Continue CPAP History of Present Illness Attending Physician: Osman Fajardo MD History of Present Illness It was my pleasure to see Mr. Mendoza in consultation today January 21, 2019. Is a very pleasant 63-year-old gentleman with an extensive atrial arrhythmia history as below who normally follows with Drs. Linares and To of [facility] cardiology. He presented to [facility] emergency department on 01/21/2019 after having 2 days of elevated heart rates on his Fitbit. Clinically states he has been feeling well may be a little lightheaded but otherwise denying chest pain, shortness of breath, palpitations or syncope. After 2 days of elevated rates he became concerned and came into the emergency department in the emergency department his EKG was read as atrial flutter and he was admitted to telemetry. He and his state that this is his normal presentation for atrial flutter it is usually asymptomatic but with atrial fibrillation he will be very symptomatic with dyspnea. He is been taking all his medications as directed and his INR has been therapeutic for over a year now through the [facility] clinic. He does note though that he missed his morning medications yesterday and was likely dehydrated as well. As per Dr. Linares's most recent office visit note on 10/23/18: Problems 1. History of paroxysmal progressing to persistent atrial fibrillation (AF) 2. S/P pulmonary vein isolation (PVI) ablations in 2007 ([facility]) and 2011 ([facility]) with post PVI atrial flutter (AFL) in 2018 3. Hypertension 4. Obstructive sleep apnea 5. Obesity 6. Asthma 7. 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 He returns as an add on for evaluation of his AF managed with flecainide. He has a history of PAF which became persistent and associated with a tachycardia induced cardiomyopathy in 2007. He failed trials of sotalol and dofetilide, and underwent a PVI ablation by Zohreh Sanders in 2007. This procedure was felt to have been successful in isolating his PVs, and he did well off anti-arrhythmic therapy until 2008 when he had his first recurrence of PAF. He had further infrequent recurrences prior to at which time he had persistent AF and was started on dronedarone followed by referral for another PVI ablation. In 2011 Adonis Toledo performed a redo PVI ablation after finding that all 4 PVs had reconnected. The redo ablation was felt to have re-isolated the PVs, and he was discharged on Tikosyn which was stopped in . He subsequently did well with infrequent AF on no AAD Rx until 2014 when he had enough PAF that flecainide was started. After that he had one or 2 episodes of highly symptomatic AF per year, some of which were terminated with a DCC. Attempts to uptitrate his flecainide resulted in fatigue, and in 2016 his flecainide was downtitrated to 50 mg bid. In 2017 he had an episode of AFL which resulted in an admission to [facility]. He noted that the AFL was not as symptomatic as his prior AF. He underwent a DCC, and was discharged on a higher dose of flecainide. He was in NSR on flecainide at his last appointment in . He requested today's appointment as a "check up". Today he reports no AF or AFL since his last clinic visit. He describes periodic lightheadedness which is not postural, but no syncope or true pre-syncope. He has had no chest pain consistent with angina, or limiting dyspnea. No bleeding, TIA or CVA on warfarin. We had a long conversation regarding anticoagulation options, but he is satisfied to remain on warfarin. Allergies Allergy/AdvReac Type Severity Reaction Status Date / Time allopurinol Allergy Unknown hives Verified 04/01/19 13:41 PADMINI Inhibitors AdvReac Unknown cough Verified 04/01/19 13:41 Home Medications Home Medications Medication Instructions Recorded Confirmed Type diltiazem HCl [Cartia XT] 240 mg PO HS 01/21/19 04/01/19 History fexofenadine 180 mg PO DAILY 01/21/19 04/01/19 History flecainide 100 mg PO BID 01/21/19 04/01/19 History fluticasone propionate 2 spray INTRANASAL DAILY 01/21/19 04/01/19 History losartan-hydrochlorothiazide 1 tab PO DAILY 01/21/19 04/01/19 History magnesium 665 mg PO DAILY 01/21/19 04/01/19 History omega 3-pff-cdn-fish oil [Fish Oil] 1,000 cap PO DAILY 01/21/19 04/01/19 History potassium chloride 10 meq PO DAILY 01/21/19 04/01/19 History turmeric root extract 500 mg PO DAILY 01/21/19 04/01/19 History warfarin 5 mg PO SUTUWETHSA 01/21/19 04/01/19 History warfarin 10 mg PO MOFR 01/21/19 04/01/19 History Patient History Medical History Atrial flutter Chronic allergic conjunctivitis (Chronic 06/04/11) HTN (hypertension) Intermittent asthma (Chronic 06/04/11) RAFAEL (obstructive sleep apnea) Persistent atrial fibrillation 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 Surgical History History of cataract surgery History of total left knee replacement History of total right knee replacement S/P ablation of atrial fibrillation PVI ablation in 2007 and 2011, post PVI atrial flutter in 2018 and 2019 Family History Mother Cancer Social History Preferred Language: Malay Communication Ability: Effective [employer] Required: No Beliefs That Will Affect Care: None Current Living Situation: Spouse Other Information That Helps Us Care for You: No Feels Safe at Home: Yes Safety Concerns: Feels Safe At This Time Smoking Status: Never smoker Tobacco Type: cigarettes ; Do You Dip or Chew Tobacco: No ; Second Hand Exposure: No ; Tobacco Cessation Education Requested by Patient: No Hx Alcohol Use: Yes Alcohol type: wine Hx Substance Use: No Review of Systems Review of Systems: All systems reviewed & are unremarkable except as noted in HPI & below Physical Exam Physical Exam: General: Awake, alert and oriented x 3. No acute distress. HEENT: Normocephalic, atraumatic. Pupils equal, round and reactive to light and accommodation. Extraocular muscles are intact. Anicteric sclera. Moist mucous membranes. Neck: No JVD. No bruit. Cardiovascular: irregularly irregular, unable to appreciate murmur, rub or gallop. Pulmonary: Clear to auscultation bilaterally. No rales, rhonchi, or wheezing. Abdomen: Bowel sounds x 4, soft. No rebound, guarding or tenderness. No organomegaly. Extremities: No clubbing, cyanosis or edema. +2 pedal pulses bilaterally. Skin: Warm and dry. Results & Data Vital Signs (Past 12 Hours) Vital Signs Temp Pulse Pulse Resp BP BP Pulse Ox 04/01/19 15:42 36.4 C L 102 H 26 H 172/100 H 94 04/01/19 13:46 102 H 23 172/132 H 95 04/01/19 13:45 110 H 20 96 04/01/19 13:31 109 H 19 116/79 95 04/01/19 13:30 109 H 16 95 04/01/19 13:27 102 H 15 131/96 94 04/01/19 13:15 87 16 125/90 96 04/01/19 13:01 92 H 17 95 04/01/19 13:00 101 H 19 122/99 95 04/01/19 12:45 88 20 140/85 94 04/01/19 12:30 96 H 17 132/88 95 04/01/19 12:15 94 H 17 180/105 H 95 04/01/19 12:06 101 H 18 155/105 H 04/01/19 11:44 36.6 C 129 H 20 124/83 96
--- NOTE | 2019-04-01 18:30 | Emergency Department Note ---
Entered by Renea Santacruz acting as a scribe for Fer Gamble History of Present Illness General Chief complaint: Arrhythmia/Palpitations Stated complaint: AFIB OR AFLUTTER Time Seen by Provider: 04/01/19 12:09 Source: patient History of Present Illness Onset (ago): day(s) 2 Location: chest Pain Consistency: + other (episode) Maximum Pain Intensity: 0 Quality: + other (arrhythmia) Relieved By: not by medication (Flecainide) Associated symptoms: no chest pain and no shortness of breath The patient is a 63 year old male who presents to the Emergency Room with complaints of an episode of an arrhythmia starting 2 days ago. The patient states that he has a history of atrial fibrillation, but is not always in it. He states that the can feel when it comes on. He states that he was just here in January for it and had to be shocked back into rhythm. He notes that he feels that he is in it again. He reports that this is unusual for him to have an episode so close together. The patient notes that 2 days ago when he felt it come on, he took an extra Flecainide like he was instructed to do and thought it was doing okay. He states that yesterday it didnt feel as bad, but his Fit-Bit told him he had over 230 minutes of activity when he was sitting most of the day. He reports that this morning when he woke up, his rate was back down to 55, where he normally sits, but by this afternoon, it started again. He notes that he last ate last night and drank a sip of water to take his morning medications. He reports that he last took his Cardizem last night. The patient denies chest pain and shortness of breath. Home Medications Home Medications Medication Instructions Recorded Confirmed Type diltiazem HCl [Cartia XT] 240 mg PO HS 01/21/19 04/01/19 History fexofenadine 180 mg PO DAILY 01/21/19 04/01/19 History flecainide 100 mg PO BID 01/21/19 04/01/19 History fluticasone propionate 2 spray INTRANASAL DAILY 01/21/19 04/01/19 History losartan-hydrochlorothiazide 1 tab PO DAILY 01/21/19 04/01/19 History magnesium 665 mg PO DAILY 01/21/19 04/01/19 History omega 4-yrh-obn-fish oil [Fish Oil] 1,000 cap PO DAILY 01/21/19 04/01/19 History potassium chloride 10 meq PO DAILY 01/21/19 04/01/19 History turmeric root extract 500 mg PO DAILY 01/21/19 04/01/19 History warfarin 5 mg PO SUTUWETHSA 01/21/19 04/01/19 History warfarin 10 mg PO MOFR 01/21/19 04/01/19 History Allergies Allergy/AdvReac Type Severity Reaction Status Date / Time allopurinol Allergy Unknown hives Verified 04/01/19 13:41 PADMINI Inhibitors AdvReac Unknown cough Verified 04/01/19 13:41 Past Med/Surg History Medical History Atrial flutter Chronic allergic conjunctivitis (Chronic 06/04/11) HTN (hypertension) Intermittent asthma (Chronic 06/04/11) RAFAEL (obstructive sleep apnea) Persistent atrial fibrillation 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 Surgical History History of cataract surgery History of total left knee replacement History of total right knee replacement S/P ablation of atrial fibrillation PVI ablation in 2007 and 2011, post PVI atrial flutter in 2018 and 2019 Family History Mother Cancer Social History Preferred Language: Chinese Communication Ability: Effective Networker Required: No Beliefs That Will Affect Care: None Current Living Situation: Spouse Other Information That Helps Us Care for You: No Feels Safe at Home: Yes Safety Concerns: Feels Safe At This Time Smoking Status: Never smoker Tobacco Type: cigarettes ; Do You Dip or Chew Tobacco: No ; Second Hand Exposure: No ; Tobacco Cessation Education Requested by Patient: No Hx Alcohol Use: Yes Alcohol type: wine Hx Substance Use: No Review of Systems See HPI for pertinent positives & negatives. and A total of 10 systems reviewed and were otherwise negative Physical Exam Vital Signs Vital Signs - 24 hr 04/01/19 11:44 04/01/19 12:06 04/01/19 12:13 Temperature 36.6 C Temperature Source Oral Pulse Rate 129 H 101 H Pulse Rate from SpO2 Sensor 89 Respiratory Rate 20 18 Respiratory Depth Normal Blood Pressure 124/83 155/105 H Blood Pressure Mean 96 114 Pulse Oximetry 96 95 Oxygen Delivery Method Room Air Room Air Oxygen Flow Rate 96 Sepsis Recent Fever Within 48 Hours No Sepsis New/Unexplained Change in Mental Status No Sepsis Action Taken by Nursing No Action Required 04/01/19 12:15 04/01/19 12:30 04/01/19 12:45 Temperature Temperature Source Pulse Rate 94 H 96 H 88 Pulse Rate from SpO2 Sensor 109 H 95 H 88 Respiratory Rate 17 17 20 Respiratory Depth Blood Pressure 180/105 H 132/88 140/85 Blood Pressure Mean 148 96 105 Pulse Oximetry 95 95 94 Oxygen Delivery Method Oxygen Flow Rate Sepsis Recent Fever Within 48 Hours Sepsis New/Unexplained Change in Mental Status Sepsis Action Taken by Nursing 04/01/19 13:00 04/01/19 13:01 04/01/19 13:15 Temperature Temperature Source Pulse Rate 101 H 92 H 87 Pulse Rate from SpO2 Sensor 97 H 103 H 89 Respiratory Rate 19 17 16 Respiratory Depth Blood Pressure 122/99 125/90 Blood Pressure Mean 105 108 Pulse Oximetry 95 95 96 Oxygen Delivery Method Oxygen Flow Rate Sepsis Recent Fever Within 48 Hours Sepsis New/Unexplained Change in Mental Status Sepsis Action Taken by Nursing 04/01/19 13:27 04/01/19 13:30 04/01/19 13:31 Temperature Temperature Source Pulse Rate 102 H 109 H 109 H Pulse Rate from SpO2 Sensor 93 H 89 93 H Respiratory Rate 15 16 19 Respiratory Depth Blood Pressure 131/96 116/79 Blood Pressure Mean 114 93 Pulse Oximetry 94 95 95 Oxygen Delivery Method Oxygen Flow Rate Sepsis Recent Fever Within 48 Hours Sepsis New/Unexplained Change in Mental Status Sepsis Action Taken by Nursing GENERAL: He is oriented to person, place, and time. He appears well-developed and well-nourished. He does not appear distressed. HENT: Exam performed. - Head: Normocephalic and atraumatic. - Right Ear: External ear normal. No mastoid tenderness. - Left Ear: External ear normal. No mastoid tenderness. - Mouth/Throat: The oropharynx is clear and moist. No trismus in the jaw. No dental abscesses or uvula swelling. No oropharyngeal exudate or tonsillar abscesses. EYES: Conjunctivae and EOM are normal. Pupils are equal, round, and reactive to light. Right eye exhibits no discharge. Left eye exhibits no discharge. No scleral icterus. NECK: Normal range of motion. Neck supple. No JVD present. No spinous process tenderness present. No carotid bruit present. No rigidity. No tracheal deviation and normal range of motion present. No Brudzinski's sign and no Kernig's sign noted. CV: Tachycardia rate, irregular rhythm, normal heart sounds and intact distal pulses. There is no peripheral edema. Palpable radial pulses bue. PULM/CHEST: Effort normal and breath sounds normal. No respiratory distress. No stridor. He has no wheezes. He has no rales. - Chest Wall: He exhibits no tenderness. ABD: The abdomen is soft. Bowel sounds are normal. He has no distension. No mass is present. There is no tenderness. There is no rebound, no guarding, no Cooley's sign and no tenderness at McBurney's point. Rovsig negative. MUSC/SKEL: Normal range of motion. There is no peripheral edema, tenderness or deformity. LYMPH: No cervical adenopathy. NEURO: He is alert and oriented to person, place, and time. He has normal strength. No cranial nerve deficit or sensory deficit. Coordination and gait normal. GCS eye subscore is 4. GCS verbal subscore is 5. GCS motor subscore is 6. Cerebellar tests wnl. SKIN: Skin is warm and dry. He is not diaphoretic. PSYCH: He has a normal mood and affect. Behavior is normal. Judgment and thought content normal. Course Course 1211: The patient was evaluated in room B6. A complete history and physical exam was performed. 1240: I discussed the patient's case with Dr. Govea- Cardiology. He said that the patient has a very complicated medical history, including two unsuccessful cardiac ablations, and is on many anti-rhythms. He states that the patient needs admitted to the hospital service. He states to start him on a Cardizem drip at a low rate to maintain heart rate and to continue the flecainide, but shoulder not exceed more than 300 mg in 24 hours. 1304: I discussed the patient's case with JADYN Weber- [facility] Hospitalist. She will evaluate the patient for further management under Dr. Westfall's service. Administered Medications Diltiazem HCl 125 mg/ Dextrose 125 mls @ 5 mls/hr IV .Q24H [facility]; Protocol Stop: 05/01/19 12:59 Last Titration: 04/01/19 17:00 Dose: 7.5 mg/hr, 7.5 mls/hr Documented by: [id number] Cosigned by: [id number] Admin: 04/01/19 13:22 Dose: 5 mg/hr, 5 mls/hr Documented by: [id number] Cosigned by: [id number] Warfarin Sodium (Coumadin) 5 mg PO Sheryl@1600 YOBANI Stop: 05/01/19 15:59 Last Admin: 04/01/19 16:11 Dose: 5 mg Documented by: [id number] Discontinued Medications Aspirin (Aspirin) 324 mg PO NOW STA Stop: 04/01/19 12:17 Last Admin: 04/01/19 12:22 Dose: 324 mg Documented by: [id number] Critical Care Time Critical Care Time: Yes Total Critical Care Time: 43 I have personally spent 43 minutes of critical care time in the direct management of this patient. This includes bedside care, interpretation of diagnostic studies, and testing, discussion with consultants, patient, and family members, and other required patient management activities. This 43 minutes is in excess of all separately billable procedures. Medical Decision Making Medical Records Attestation: I reviewed the patient's medical records. Home Medications Current Medication List: was personally reviewed by me Laboratory Data Attestation: I reviewed the patient's lab results. Result diagrams: 04/01/19 12:07 04/01/19 12:07 Lab Results 04/01/19 04/01/19 04/01/19 Range/Units 12:07 12:07 12:07 WBC 6.67 (4.8-10.8) K/uL RBC 5.18 (4.7-6.1) M/uL Hgb 17.7 (14.0-18.0) g/dL Hct 49.2 (42-52) % MCV 95.0 (80-100) fL MCH 34.2 H (25-34) pg MCHC 36.0 (32-36) g/dL RDW Std Deviation 44.7 (36.4-46.3) fL RDW Coeff of Cindy 12.9 (11.5-14.5) % Plt Count 247 (130-400) K/uL MPV 10.5 H (7.4-10.4) fL Immature Gran % (Auto) 0.1 % Neut % (Auto) 58.3 % Lymph % (Auto) 29.5 % Taliaferro % (Auto) 10.6 % Eos % (Auto) 1.2 % Baso % (Auto) 0.3 % Immature Gran # (Auto) 0.01 (0.00-0.02) K/uL Neut # (Auto) 3.88 (1.4-6.5) K/uL Lymph # (Auto) 1.97 (1.2-3.4) K/uL Taliaferro # (Auto) 0.71 H (0.11-0.59) K/uL Eos # (Auto) 0.08 (0-0.5) K/uL Baso # (Auto) 0.02 (0-0.2) K/uL PT 26.6 H (9.0-12.0) Seconds INR 2.8 H (0.9-1.1) APTT 37.9 H (21.0-31.0) Seconds PTT Ratio 1.4 Sodium 134 L (136-145) mmol/L Potassium 3.9 (3.5-5.1) mmol/L Chloride 102 (98-107) mmol/L Carbon Dioxide 25 (21-32) mmol/L Anion Gap 7.0 (3-11) BUN 13 (7-18) mg/dl Creatinine 0.84 (0.6-1.4) mg/dl Est Cr Clr Drug Dosing 135.3 ml/min Est GFR ( Amer) 107.2 Est GFR (Non-Af Amer) 92.5 BUN/Creatinine Ratio 15.0 (10-20) Glucose 103 H (70-99) mg/dl Calcium 9.2 (8.5-10.1) mg/dl Troponin I < 0.015 (0-0.045) ng/ml Lipase 81 (73-393) U/L Imaging Data Radiologist's Impression: Radiology results as stated below per my review and the radiologist's interpretation: XR chest 1V portable HISTORY: Atypical Chest Pain COMPARISON: Chest 01/21/2019. FINDINGS: The heart remains top normal in size. No pleural effusions. No pneumothorax. No focal lung consolidations to suggest pneumonia. No evidence for pulmonary edema. IMPRESSION: No acute process. ACT 112: Negative or not required by law. Electronically signed by: Kvng Fontanez M.D. 04/01/2019 3:41 PM ECG Data Attestation: I personally reviewed and interpreted this ECG as follows: Indication: + palpitations Rate (beats per minute): 116 Rhythm: + atrial fibrillation ECG Intervals/blocks: + Normal QRS and + Normal QT-c ECG ST segments: no ST depression and no ST elevation Blood Pressure Blood Pressure Findings: Elevated blood pressure Blood Pressure Disposition: further management by hospitalist [facility] Narrative 1211: The patient was evaluated in room B6. A complete history and physical exam was performed. 1240: I discussed the patient's case with Dr. Govea- Cardiology. He said that the patient has a very complicated medical history, including two unsuccessful cardiac ablations, and is on many anti-rhythms. He states that the patient needs admitted to the hospital service. He states to start him on a Cardizem drip at a low rate to maintain heart rate and to continue the flecainide, but shoulder not exceed more than 300 mg in 24 hours. 1304: I discussed the patient's case with [facility]. She will evaluate the patient for further management under Dr. Westfall's service. Impression & Plan Atrial fibrillation with RVR Discharge Plan Visit Data *Final* Discharge Date/Time: 04/01/19 14:02 Chief Complaint: Arrhythmia/Palpitations Stated Complaint: AFIB OR AFLUTTER ED Provider: Fer Gamble Discharge Problem: Atrial fibrillation with RVR Patient Disposition: Being Evaluated by Hospitalist Discharge Instructions Interventions: ED Discharge Assessment Last Done: 04/01/19 14:02 The scribe's documentation has been prepared under my direction and personally reviewed by me in its entirety. I confirm that the note above accurately reflects all work, treatment, procedures, and medical decision making performed by me.
[2019-04-01] MEDS: FLECAINIDE ACETATE 100 MG TABLET PO SCH (20:14)
[2019-04-02] MEDS: dilTIAZem HCL 125 MG in DEXTROSE 5% 100 ML IV SCH (06:07)
[2019-04-02 07:25] LABS: Hematocrit (blood only) 47.5 % (42-52); Hemoglobin 16.9 g/dL (14.0-18.0); Mean Corpuscular Hemoglobin 33.9 pg (25-34); Mean Corpuscular Hgb Conc 35.6 g/dL (32-36); Mean Corpuscular Volume 95.2 fL (80-100); Mean Platelet Volume 9.5 fL (7.4-10.4); Platelet Count 204 K/uL (130-400); RDW Coefficient of Variation 13.1 % (11.5-14.5); RDW Standard Deviation 45.3 fL (36.4-46.3); Red Blood Count 4.99 M/uL (4.7-6.1); White Blood Count 6.57 K/uL (4.8-10.8)
[2019-04-02 07:33] LABS: INR 2.9 (0.9-1.1); Prothrombin Time 27.6 Seconds (9.0-12.0)
[2019-04-02 08:01] LABS: BUN Creatinine Ratio 17.3 (10-20); Calcium 9.1 mg/dl (8.5-10.1); Creatinine Clr Calc Pharmacy 139.4 ml/min; Est GFR (African American) 108.9; Est GFR (Non-African American) 93.9
[2019-04-02] MEDS ORDERED: NALOXONE HCL 0.4 MG/1 ML VIAL/CARP ONE (08:50)
[2019-04-02] MEDS ORDERED: FLUMAZENIL 0.1 MG/1 ML 10 ML VIAL ONE (08:50)
--- NOTE | 2019-04-02 08:50 | History & Physical Bridge Note ---
Date of Service April 02, 2019 History & Physical Bridge Note I have examined the patient, reviewed the History & Physical and in the interval since the performance of the History & Physical I have noted the following changes of clinical significance: no changes noted
--- NOTE | 2019-04-02 08:50 | Pre Anesthesia Assessment ---
Date of Service April 02, 2019 Pre Sedation Assessment Vital Signs Temp Pulse Pulse Resp BP BP BP 04/02/19 07:09 36.7 C 67 19 145/81 H 04/02/19 03:19 37.0 C 70 18 118/68 04/01/19 23:26 36.6 C 64 18 118/71 04/01/19 20:08 36.8 C 67 18 143/87 H 04/01/19 16:33 36.6 C 85 18 150/68 H 04/01/19 15:42 36.4 C L 102 H 26 H 172/100 H 04/01/19 13:46 102 H 23 172/132 H 04/01/19 13:45 110 H 20 04/01/19 13:31 109 H 19 116/79 04/01/19 13:30 109 H 16 04/01/19 13:27 102 H 15 131/96 04/01/19 13:15 87 16 125/90 04/01/19 13:01 92 H 17 04/01/19 13:00 101 H 19 122/99 04/01/19 12:45 88 20 140/85 04/01/19 12:30 96 H 17 132/88 04/01/19 12:15 94 H 17 180/105 H 04/01/19 12:06 101 H 18 155/105 H 04/01/19 11:44 36.6 C 129 H 20 124/83 Pulse Ox 04/02/19 07:09 96 04/02/19 03:19 96 04/01/19 23:26 96 04/01/19 20:08 96 04/01/19 16:33 96 04/01/19 15:42 94 04/01/19 13:46 95 04/01/19 13:45 96 04/01/19 13:31 95 04/01/19 13:30 95 04/01/19 13:27 94 04/01/19 13:15 96 04/01/19 13:01 95 04/01/19 13:00 95 04/01/19 12:45 94 04/01/19 12:30 95 04/01/19 12:15 95 04/01/19 12:06 95 04/01/19 11:44 96 Pre-Sedation Airway Assessment Smoking Status: Never smoker Hx Sleep Apnea: Yes Notes The planned sedation has been discussed with the patient. Informed Consent was obtained. I have identified the patient, determined the appropriateness of sedation and have assessed the patient immediately prior to the procedure. All medicine(s) and interventions are by my order.
[2019-04-02] MEDS ORDERED: fentaNYL citrate 100 MCG/2 ML VIAL ONE (08:51)
[2019-04-02] MEDS ORDERED: ATROPINE SULFATE 0.1 MG/ML 10ML SYR IV ONE (08:51)
[2019-04-02] MEDS ORDERED: MIDAZOLAM HCL 1 MG/ML 2ML VIAL ONE (08:51)
[2019-04-02] MEDS ORDERED: LOSARTAN/HCTZ 50/12.5MG TAB PO SCH (09:00)
[2019-04-02] MEDS ORDERED: POTASSIUM CHLORIDE 10 MEQ TABCR PO SCH (09:00)
[2019-04-02] MEDS ORDERED: OMEGA-3 (PURIFIED FISH OIL) 1 GM CAP PO SCH (09:00)
[2019-04-02] MEDS ORDERED: MAGNESIUM OXIDE 400 MG TAB PO SCH (09:00)
[2019-04-02] MEDS ORDERED: FEXOFENADINE HCL 180 MG TAB PO SCH (09:00)
--- NOTE | 2019-04-02 09:20 | Cardioversion ---
Date of Service April 02, 2019 Electrical Cardioversion Rpt Electrical Cardioversion Report Informed consent obtained pt prepped per protocol adequate moderate sedation achieved with a total of Versed 5mg and Fentanyl 150mcg 360J of DC energy delivered with successful cardioversion to sinus rhythm pt tolerated well no complications recover per protocol, to be returned to tele start time: 902 stop time: 913
[2019-04-02] MEDS: FLECAINIDE ACETATE 100 MG TABLET PO SCH (10:25)
--- NOTE | 2019-04-02 13:51 | Discharge Summary ---
Date of Service April 02, 2019 Admission HPI Per Admitting Provider 63 year old male who presents to the ED for evaluation of palpitations and high heart rate. Patient has history of atrial fibrillation and atrial flutter s/p ablation x 2 and multiple cardioversions, most recently being 01/2019. Patient reports that two night ago he felt some palpitations and his FitBit watch showed his HR to be in the 120s. Patient reports he was instructed by his tailing hand to take an extra 2 tablets (100mg each) of Flecainide when this occurred. The following morning patient reports his heart rate was in the 60s. This morning patient's watch told him his HR was in the 120s. He was asymptomatic. He then presented to the ED for further evaluation. Patient reports he otherwise has been feeling well recently. No fevers or chills. Denies chest pain and shortness of breath. No lightheadedness, dizziness, diaphoresis, syncopal events. He denies abdominal pain, nausea, vomiting, diarrhea. No urinary symptoms. In the ED, patient is found to be in atrial fibrillation with RVR with heart rates in the 120s. Cardiology was contacted by ED who recommended diltiazem drip. Patient has had improvement in heart rate. Labs are unremarkable. Admission Exam Per Admitting Provider General: Well nourished, well hydrated ,average body habitus, no acute distress and not ill appearing Eyes: PERRL, conjunctivae normal, not pale, anicteric sclerae, EOM intact bilaterally ENMT: External ear and nose normal, oropharynx normal Neck: Normal visual inspection, no tracheal deviation, no swelling noted Respiratory: Normal respiratory effort, no respiratory distress, lungs clear to auscultation, no crackles and no wheezes Cardiovascular: Pulse is irregularly irregular. S1 S2; no murmurs. no pedal edema Chest (Breasts): Chest: normal inspection of chest Gastrointestinal (Abdomen): Abdomen is not distended, soft, non-tender to palpation, no guarding, no palpable hepatosplenomegaly, normal bowel sounds Musculoskeletal: No cyanosis or clubbing, all extremities motor strength 5/5 Genitourinary: No CVA tenderness Skin: No rash noted on gross inspection, No ulcers noted Neurologic: Alert and oriented x 3, No focal weakness, sensation grossly intact Psychiatric: Euthymic affect, normal judgement Principal Diagnosis Atrial flutter w/ RVR Discharge Exam General: Well nourished, wd male in NAD Eyes: PERRL, EOMI, conjunctivae normal,anicteric sclerae ENMT: External ear and nose normal, oropharynx normal Neck: Normal visual inspection, no tracheal deviation, no swelling noted Respiratory: Normal respiratory effort, no respiratory distress, lungs clear to auscultation, no crackles and no wheezes Cardiovascular: RRR, S1 S2; no murmurs. no pedal edema Chest (Breasts): Chest: normal inspection of chest Gastrointestinal (Abdomen): Abdomen is not distended, soft, non-tender to palpation, no guarding, normal bowel sounds Musculoskeletal: No cyanosis or clubbing, all extremities motor strength 5/5, moves all extremities spontaneously Skin: warm, dry, well perfused Neurologic: Alert and oriented x 3, No focal weakness, sensation grossly intact Psychiatric: Euthymic affect, normal judgement Discharge Data Allergies Allergy/AdvReac Type Severity Reaction Status Date / Time allopurinol Allergy Unknown hives Verified 04/01/19 13:41 PADMINI Inhibitors AdvReac Unknown cough Verified 04/01/19 13:41 Consultations 04/01/19 12:56 ED Decision to Admit Stat 04/01/19 14:41 Consult Cardiology Routine Procedures Performed Operation Date: 04/02/19 09:00 Actual Procedures p Cardioversion - Kelvin Govea, Hospital Course (1) Atrial fibrillation with RVR: -Patient presenting from home after his FitBit watch alerted him that his heart rate was in the 120s -History of atrial fibrillation and atrial flutter, s/p 2 PVI ablations and multiple cardioversions, most recently being 01/2019 -Patient asymptomatic on admission -In the ED, heart rate in the 120s -Cardiology consulted by ED provider who recommended Cardizem drip. Patient's heart rate has improved while on Cardizem drip. -Now s/p cardioversion this a.m. (04/02/2019) by Dr. Govea (cardiology) -pt is currently in sinus rhythm -Recommend to follow up with electrophysiology at [place] for possible atrial flutter ablation -Anticoagulated on Coumadin, INR 2.8 -Recommend to discharge on home medications - Cardizem and flecainide (2) HTN (hypertension): -BP controlled, continue losartan/HCTZ -cont. home med as above (3) RAFAEL (obstructive sleep apnea): -CPAP as per home settings (4) DVT prophylaxis: -Anticoagulated on Coumadin, INR 2.8 Total Time Total Time Spent Total Time Spent (In Minutes): 35 Total Time Includes: Examination of the Patient, Discharge Planning, Medication Reconciliation and Communication With Other Providers Discharge Plan Discharge Items Patient Disposition: Home - Self-Care Reason For Visit: AFIB RVR Discharge Diagnosis: Atrial flutter w/ RVR Activity: Resume your previous activity Activity Comment: recommend rest for next 2-3 days, then increase activity as tolerated Non-emergency contact: Primary Care Provider and Bingo Attendant Call non-emergency contact if: you have any medication questions and your symptoms worsen Follow-up/Referrals: Jarrett Doan DO [Primary Care Provider] - 04/08/19 11:05 am Diet: Heart Healthy Addtl Attending Provider Instructions: Follow up with your primary care doctor on 04/08/2019 at 11:05 AM. You should rest in next 2-3 days and then increase your activity as tolerated. Cardiology office will contact you about your follow up appointment. It is recommended that you follow up with electrophysiology at [place] for possible atrial flutter ablation. Pending Studies at Discharge: No Stand-Alone Forms: [facility] [employer], Smoking Cessation Medications and DC Order Prescriptions: Continued diltiazem HCl [Cartia XT] 240 mg capsule,extended release 24hr 240 mg PO HS RF: 0 potassium chloride 10 mEq Tablet Extended Release 10 meq PO DAILY RF: 0 fexofenadine 180 mg Tablet 180 mg PO DAILY RF: 0 losartan-hydrochlorothiazide 100-25 mg tablet 1 tab PO DAILY RF: 0 warfarin 5 mg tablet 10 mg PO MOFR RF: 0 warfarin 5 mg tablet 5 mg PO SUTUWETHSA RF: 0 flecainide 100 mg tablet 100 mg PO BID RF: 0 fluticasone propionate 50 mcg/actuation spray,suspension 2 spray INTRANASAL DAILY RF: 0 magnesium 30 mg Tablet 665 mg PO DAILY RF: 0 omega 3-hpq-awv-fish oil [Fish Oil] 1,000 mg (120 mg-180 mg) Capsule 1,000 cap PO DAILY RF: 0 turmeric root extract 500 mg Capsule 500 mg PO DAILY RF: 0 Discharge Orders: Discharge Order (Routine); Ordered 04/02/19 Ordered By: Arnoldo Lozano Admission Data Admit Date/Time: 04/01/19 13:38 Attending Provider: Arnoldo Lozano Admit Provider: Perri Westfall I. Primary Care Provider: Jarrett Doan Other Providers: Perri Westfall I. ; Kelvin Govea
--- NOTE | 2019-04-02 16:56 | Cardiology Progress Note ---
Date of Service April 02, 2019 Assessment & Plan (1) Atrial flutter: Atypical Asymptomatic This is now the patient's third episode of atrial flutter, unfortunately, episodes appear to be occurring more frequently now. Successful DC cardioversion to normal sinus rhythm this a.m. We will plan to DC to home on current outpatient medical regimen. Given recurrence of atrial flutter will arrange for electrophysiology evaluation for possible flutter ablation as an outpatient, my office will arrange. The patient and his are in agreement with the above plan. (2) Atrial fibrillation with RVR: Patient is actually not been in atrial fibrillation for some time now. (3) RAFAEL (obstructive sleep apnea): Continue CPAP therapy (4) HTN (hypertension): We will hold off on medication adjustments until rates improved. Subjective Patient seen and examined with at bedside. States he has had an uneventful night and denies any chest pain, shortness of breath, palpitations, lightheadedness, dizziness or syncope. Telemetry reviewed: Atrial flutter with variable AV block overnight. Has remained in sinus rhythm status post cardioversion. Review of Systems Review of Systems: All systems reviewed & are unremarkable except as noted in HPI & below Physical Exam Physical Exam: General: Awake, alert and oriented x 3. No acute distress. HEENT: Normocephalic, atraumatic. Pupils equal, round and reactive to light and accommodation. Extraocular muscles are intact. Anicteric sclera. Moist mucous membranes. Neck: No JVD. No bruit. Cardiovascular: Regular. Positive S-4. Normal S-1 and S-2. No S-3. No murmurs or rubs. Pulmonary: Clear to auscultation B/L. No rales, rhonchi or wheezing Abdomen: Bowel sounds x 4, soft. No rebound, guarding or tenderness. No organomegaly. Extremities: No clubbing, cyanosis or edema. +2 pedal pulses bilaterally. Skin: Warm and dry. Results & Data Vital Signs (Past 12 Hours) Vital Signs Temp Pulse Pulse Pulse Resp BP BP 04/02/19 13:52 36.3 C L 64 84 18 129/77 172/100 H 04/02/19 11:57 36.3 C L 64 18 129/77 04/02/19 09:45 62 18 122/79 04/02/19 09:30 65 18 140/79 04/02/19 09:15 65 18 137/87 04/02/19 09:10 84 18 132/89 04/02/19 09:05 93 H 18 143/94 H 04/02/19 09:03 110 H 18 167/103 H 04/02/19 09:01 84 18 156/101 H 04/02/19 07:09 36.7 C 67 19 145/81 H Pulse Ox 04/02/19 13:52 96 04/02/19 11:57 96 04/02/19 09:45 93 04/02/19 09:30 94 04/02/19 09:15 96 04/02/19 09:10 97 04/02/19 09:05 98 04/02/19 09:03 97 04/02/19 09:01 98 04/02/19 07:09 96
--- NOTE | 2019-04-02 17:36 | Electrocardiogram Report ---
Test Reason : Blood Pressure : / mmHG Vent. Rate : 116 BPM Atrial Rate : 250 BPM P-R Int : 000 ms QRS Dur : 102 ms QT Int : 300 ms P-R-T Axes : -53 001 053 degrees QTc Int : 417 ms Atrial flutter with variable A-V block vs atrial fibrillation Abnormal ECG When compared with ECG of 22-JAN-2019 09:46, Atrial flutter has replaced Sinus rhythm Vent. rate has increased BY [address] now depressed in Inferior leads ST now depressed in Lateral leads Nonspecific T wave abnormality now evident in Lateral leads Confirmed by Jimmie Stearns ([id number]) on 04/02/2019 5:35:53 PM Referred By: Confirmed By:Enmanuel Stearns
--- NOTE | 2019-04-02 17:51 | Electrocardiogram Report ---
Test Reason : Blood Pressure : / mmHG Vent. Rate : 068 BPM Atrial Rate : 288 BPM P-R Int : 000 ms QRS Dur : 088 ms QT Int : 378 ms P-R-T Axes : 041 031 040 degrees QTc Int : 401 ms Atrial flutter Abnormal ECG When compared with ECG of 01-APR-2019 11:51, (unconfirmed) Vent. rate has decreased BY 48 BPM Borderline criteria for Anterior infarct are no longer Present ST now depressed in Anterior leads Nonspecific T wave abnormality no longer evident in Lateral leads Confirmed by Jimmie Stearns ([id number]) on 04/02/2019 5:50:59 PM Referred By: REFERRED SELF Confirmed By:Enmanuel Stearns
--- NOTE | 2019-04-02 17:52 | Electrocardiogram Report ---
Test Reason : Blood Pressure : / mmHG Vent. Rate : 062 BPM Atrial Rate : 062 BPM P-R Int : 226 ms QRS Dur : 088 ms QT Int : 404 ms P-R-T Axes : 073 013 028 degrees QTc Int : 410 ms Sinus rhythm with 1st degree A-V block Abnormal ECG When compared with ECG of 02-APR-2019 06:54, (unconfirmed) Sinus rhythm has replaced Atrial flutter Confirmed by Jimmie Stearns ([id number]) on 04/02/2019 5:52:12 PM Referred By: REFERRED SELF Confirmed By:Enmanuel Stearns
[2019-04-04] MEDS ORDERED: WARFARIN SOD 10 MG TAB PO SCH (16:00)
== END 2019-04-02 14:41 | disposition home or self-care (01) | DRG 310 ==
LOC: ED 11:42 → 2S 13:38 → SUATTDRO 13:38 → 2S 14:02